=== PATIENT | female | born 1945 | race Caucasian/White ===

== ENCOUNTER 2022-05-30 07:57 | Outpatient (CLI) | payer MEDICARE, BC, SELFPAY | END 2022-05-30 07:58 | disposition home or self-care (01) | PROVIDERS: PCP Family Medicine; Visit Provider Family Medicine | DX: M54.16 Radiculopathy, lumbar region (principal); M51.26 Other intervertebral disc displacement, lumbar region | CPT/HCPCS: 64483; J1100; Q9966 ==

== ENCOUNTER 2022-07-07 13:00 | Outpatient (RCR) | payer MEDICARE, BC, SELFPAY ==
--- NOTE | 2022-06-11 17:14 | PT.OPE ---
PT [facility] PT [facility] Eval Start: 06/11/22 12:00 Freq: Status: Active Protocol: Document 06/11/22 17:12 CJT (Rec: 06/11/22 17:14 CJT [id number]) E-signed By Bertt Campos PT Physical Therapy Outpatient Evaluation Insurance Information Recert Due Date 08/06/22 Insurance Name Medicare B,[employer] Medical Diagnosis M54.16 - lumbar radiculopathy M54.26 - lumbar disc herniation M54.41 - chronic low back pain with Right sided sciatica Treating Diagnosis M54.41 - chronic low back pain with Right sided sciatica Referring MD Chavira, Palmer CASTRO Subjective Subjective Pt presents with chronic low back pain with radiating symptoms to the back of her R knee. Pain is also located across the whole low back at times. Pt notes that her back pain has still be getting worse. Pt notes that pain is going down her thigh to her knee and she feels a lot of numbness. Rates numbness as a 7/10 today. Pt has pain most of the day but notes that it is not constant. Pain gest bad with a lot of standing. Pain is also bad in the AM until she moves around a bit and takes her Tylenol. Can stand for about 15 minutes before she needs to sit. Can walk for about 20-30 minutes before needing to sit and rest. Pt does not report any changes in her sleep due to pain. Pain Comments 04/20 Date of Last Physician Visit 06/05/22 Current Work Status Retired Precautions Treatment Precautions/Contraindications Per Dr. Chavira: lumbar disc program, strength and stability; lower extremity and hip mobility; home exercise program; reconditioning Therapy Limitations/Systems Review Not Limited Objective Other/Pertinent Objective Lumbar ROM Extension - 0 degrees Flexion - can reach toes with minimal knee bend, no pain R/L Side Bend - 15/18 R/L Rotation - mild impairments bilaterally R Hip ROM Flexion - 120 IR/ER - 35/24 L Hip ROM Flexion - 120 IR/ER - 27/24 R knee ROM - WNL L knee ROM - WNL R Hip Strength Flexion - 4/5 MMT Adduction - 4+/5 MMT IR - 4+/5 MMT ER - 4+/5 MMT L Hip Strength Flexion - 3/5 MMT Adduction - 4/5 MMT IR - 4/5 MMT ER - 4+/5 MMT R knee Extension - 4+/5 MMT R Knee Flexion - 4+/5 MMT L knee Extension - 4+/5 MMT L knee Flexion - 4+/5 MMT R ankle DF - 4+/5 MMT L ankle DF - 4+/5 MMT Spurling's Compression: Slump: negative bilaterally SLR: pt notes pain in R lumbar region with R SLR to 90 degrees FADIR: negative B JOJO: positive on R - pain due to muscle tension in lateral R hip Pelvis: relatively level LA dx of B LE feels good on back Spasm: R thoracic and lumbar paraspinals, QL, glute med, glute min, piriformis Tenderness with palpation noted at muscles listed above as well as at R PSIS Assessment Assessment/Impression Pt is a 76 year old female who presents to [facility] PT clinic with complaints of chronic low back pain with R side sciatica . Pt has attended therapy at our clinic for back pain in the past and reports that she did have improvements in her symptoms from previous treatment. Pts symptoms are consistent with radiculopathy and facet joint arthropathy as she tolerates flexion well and does not tolerate extension of lumbar spine. Pt shows weakness throughout B LEs and further testing does need to be completed. Pt will benefit from therapy to reduce nerve compression of spine via long-axis distraction of R LE and/or traction, as well as stabilization of muscles surrounding hips, pelvis, and lumbar spine. Skilled PT services are medically necessary to address deficits and return patient to highest level of function. Recommend physical therapy sessions 1-2/ week for 8 weeks. Pt agrees with this plan. Printout of HEP was given for I completion and pt gives verbal understanding of each exercise . Plan of Care Rehabilitation Potential Good Physical Therapy Goals STG - To be completed in 2-3 weeks: 1. Pt will report reduction in back pain by factor of 2 so that they may perform all ADLs with tolerable level of pain. 2. Pt will demonstrate ability to perform pelvic tilt with good coordination as indication of appropriate firing of pelvic and lumbar stabilizing muscles to provide greater support for pelvis and lumbar spine. 4. Pt will demonstrate 5/5 MMT for all LE motions without reproduction of pain to provide greater support to pelvis and lumbar spine. 5. Pt will report ability to tolerate 30+ minutes of standing so that they may shop for groceries at store. LTG - To be completed in 8 weeks: 1. Pt to be I with HEP so that they may I manage progression of symptoms. 2. Pt will demonstrate 5/5 MMT for both upper and lower abdominals to provide greater support to pelvis and lumbar spine. 3. Pt will report ability to walk for 45+ minutes so that she may walk with her [place] [employer]. Treatment Plan/Direct Interventions Electrical Stimulation,Heat, Joint Mobilization,Manual Therapy,Neuromuscular Re-ed, Self-Care/Home Management, Therapeutic Exercises,Traction (Mechanical),Ultrasound Frequency/Duration 1-2/week for 8 weeks, 10 visits total Patient Will Be Discharged From Therapy Completion of LTG(s),Skills Plateau,Independent w/HEP, Independently Progressing Evaluation Billing Untimed Code Treatment Minutes 32 PT Eval No Charge No Complexity Low Certification Information Initial Certification Date 06/11/22 Ending Certification Date 08/06/22 Provider Signature Shows Agreement With POC & Medical Necessity Physician Comment/Change Comment or Changes Physician NPI Number #
== END 2022-08-25 11:24 | disposition home or self-care (01) ==
PROVIDERS: PCP Family Medicine; Visit Provider Family Medicine
DX: M54.16 Radiculopathy, lumbar region (principal); Z51.89 Encounter for other specified aftercare
CPT/HCPCS: 97110; 97140; 97161

== ENCOUNTER 2022-07-12 09:30 | Emergency (ER) | payer MEDICARE, BC, SELFPAY ==
[2022-07-12 09:57] VITALS: BP 147/59; PULSE 63; RESP 20; TEMP 36.3; O2SAT 100; BMI 29.3
--- NOTE | 2022-07-12 10:42 | ED_ITS ---
HPI - General Adult General Date Seen: 07/12/22 Chief complaint: Back Injury/Pain Stated complaint: Right hip/lower back pain Time Seen by Provider: 07/12/22 10:18 Source: patient History of Present Illness HPI narrative: Patient is a 76-year-old woman with a long history of low back pain with radiation to the right hip. She was in in April [facility], at that time had a Medrol Dosepak, had had an MRI which was reviewed. She did not improve and went on to have an injection in May. This was not helpful either. She has been doing PT. She generally does well with Tylenol, but says that this morning she had onset of severe spasms in her back. She has never had anything like this. She is not able to manage with Tylenol. She does not have any new radicular pain, denies any new weakness or numbness. Has not had fevers or any other new acute changes. This is the same as her usual pain but just much more severe. No trauma. Related Data Home Medications Medication Instructions Recorded Confirmed acetaminophen 650 mg 650 mg PO Q8H PRN 04/17/22 tablet,extended release atorvastatin 10 mg tablet 10 mg PO .Bedtime 04/17/22 cholestyramine-aspartame 4 gram See Rx Instructions PO DAILY 04/17/22 07/12/22 oral powder for susp in a packet clopidogrel 75 mg tablet 75 mg PO DAILY 04/17/22 diphenhydramine 25 1 tab PO .Bedtime PRN 04/17/22 mg-acetaminophen 500 mg tablet ergocalciferol (vitamin D2) 10 mcg 2,000 unit PO DAILY 04/17/22 (400 unit) tablet lisinopril 20 1 tab PO DAILY 04/17/22 mg-hydrochlorothiazide 25 mg tablet meclizine 25 mg tablet 25 mg PO PRN 04/17/22 multivitamin (Multiple Vitamins 1 tab PO QDAY 04/17/22 tablet) omeprazole 20 mg capsule,delayed 20 mg PO DAILY 04/17/22 release sotalol 80 mg tablet 40 mg PO BID 04/17/22 Previous Rx's Medication Instructions Recorded methylprednisolone 4 mg tablets in See Rx Instructions PO PER PKG DIR 04/21/22 a dose pack (Medrol (Gwyn)) #21 ea lidocaine HCl 4 % topical patch 1 patch topical DAILY PRN pain #30 07/12/22 ea Allergies Allergy/AdvReac Type Severity Reaction Status Date / Time codeine AdvReac Severe Nausea, Verified 04/21/22 11:19 vomiting, dizziness hydrocodone AdvReac Severe Nausea, Verified 04/21/22 11:19 vomiting, dizziness meperidine AdvReac Severe Nausea, Verified 04/21/22 11:19 vomiting, dizziness morphine AdvReac Severe Nausea, Verified 04/21/22 11:19 vomiting, dizzy NSAIDS (Non-Steroidal AdvReac Severe Nausea, Verified 04/21/22 11:19 Anti-Inflamma vomiting, dizziness ciprofloxacin AdvReac Mild Palpitation Verified 04/21/22 11:19 s oxycodone AdvReac Mild Nausea Verified 04/21/22 11:19 Review of Systems Status of ROS: Reports: 10 or more systems reviewed and unremarkable except as noted in History and below [facility] Medical History Hiatal hernia History of supraventricular tachycardia Hypokalemia Lumbar degenerative disc disease Nausea 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 Pain of right lower extremity Premature atrial contraction Recurrent urinary tract infection Squamous cell carcinoma in situ (SCCIS) Urinary tract infection Surgical History History of bilateral cataract extraction (~2007) History of carpal tunnel release of both wrists History of cholecystectomy (~2002) History of resection of small bowel (~1991) History of total hysterectomy with bilateral salpingo-oophorectomy (BSO) (~1991) History of total knee replacement (~2009) Osteoarthritis of carpometacarpal (CMC) joint of right thumb (09/21/19) Family History Father FH: colonic polyps Leukemia Brother FH: colonic polyps Mother Coronary artery disease Hypercholesteremia High blood pressure Sister Breast cancer Social History Smoking Status: Never smoker Exam Narrative: Exam Narrative: Vital signs as noted above. In general, an alert, well-appearing patient. Head: Normocephalic, atraumatic. Eyes: Pupils are equal reactive. Extraocular movements are full. Conjunctivae are normal. ENT: Mucous membranes are moist. Throat is normal. Neck: Supple without lymphadenopathy. Heart: Regular rate and rhythm. No murmur or rub. Lungs: Clear bilaterally. No increased work of breathing, crackles or wheezes. Back: Nontender to palpation. Extremities: Well perfused. No edema. No calf tenderness. Pulses intact. Neurologic: Patient is alert and oriented to person and place. Speech is fluent. Face is symmetric. Bilateral lower extremities show 5/5 strength. Normal sensation bilaterally. Affect: Normal. Skin: Warm and dry. Well perfused. Const: Vital Signs, click to edit/add: Vital Signs - 24 hr 07/12/22 09:57 Temperature 97.4 F L Pulse Rate [Pulse Oximeter] 63 Respiratory Rate 20 Blood Pressure [Ri ght Upper Arm] 147/59 H Pulse Oximetry 100 Oxygen Delivery Me thod Room Air Documenting provider has reviewed patient's vital signs: yes Course Course Hospital Course: We will place an IV here. Medications are very limited secondary to allergies to all narcotics. She does not tolerate them from a GI standpoint. She says that she has been given tramadol IV before but I think she must mean Toradol. She has a listed allergy to NSAIDs, but she tells me this is because she has gastritis. I think she probably is okay with a dose of Toradol and given are limited options I am going to try that along with some Ativan. Will also try giving her some IV Solu-Medrol. She did not do well with the Medrol Dosepak but perhaps a little higher dose prednisone taper would be helpful for her. Patient feels somewhat better with Toradol and Ativan. Her pain is not gone but she feels like the spasms are occurring less frequently. We talked about trying something in the opioid class in using an antiemetic, but she really does not want to do that. She is comfortable going home and trying to continue with her Tylenol, and we are going to try the prednisone taper along with Flexeril and lidocaine patches, ice, continue with PT and seeing how she does. She has an appointment with her back doctor later in the month. If she is not able to manage with these measures she will come back. Likewise return if she has new symptoms such as muscle weakness, fevers or other unusual symptoms. Vital Signs Vital signs: Initial Vital Signs Temperature 97.4 F L 07/12/22 09:57 Temperature Source Temporal Artery Scan 07/12/22 09:57 Pulse Rate 63 07/12/22 09:57 Respiratory Rate 20 07/12/22 09:57 Blood Pressure 147/59 H 07/12/22 09:57 Blood Pressure Mean 88 07/12/22 09:57 Pulse Oximetry 100 07/12/22 09:57 Oxygen Delivery Method 07/12/22 09:57 Vital Signs Temperature 97.4 F L 07/12/22 09:57 Pulse Rate 63 07/12/22 09:57 Respiratory Rate 20 07/12/22 09:57 Blood Pressure 147/59 H 07/12/22 09:57 Pulse Oximetry 100 07/12/22 09:57 Oxygen Delivery Method 07/12/22 09:57 Temperature 97.4 F L 07/12/22 09:57 Pulse Rate 63 07/12/22 09:57 Respiratory Rate 20 07/12/22 09:57 Blood Pressure 147/59 H 07/12/22 09:57 Pulse Oximetry 100 07/12/22 09:57 Oxygen Delivery Method 07/12/22 09:57 Discharge Plan Discharge Clinical Impression: Chronic low back pain with right-sided sciatica Patient Disposition: Home, Self-Care Condition: Improved Instructions: Back Pain (ED) Additional Instructions: Continue your Tylenol. Add in Flexeril and prednisone, lidocaine patches, ice. Follow-up with your back doctor as planned. Return for severe uncontrolled pain or other new symptoms. Prescriptions: New lidocaine HCl 4 % adhesive patch,medicated 1 patch topical DAILY PRN (Reason: pain) Qty: 30 0RF No Action diphenhydramine-acetaminophen 25-500 mg tablet 1 tab PO .Bedtime PRN clopidogrel 75 mg tablet 75 mg PO DAILY ergocalciferol (vitamin D2) 10 mcg (400 unit) tablet 2,000 unit PO DAILY sotalol 80 mg tablet 40 mg PO BID multivitamin [Multiple Vitamins] Tablet 1 tab PO QDAY acetaminophen 650 mg tablet extended release 650 mg PO Q8H PRN meclizine 25 mg tablet 25 mg PO PRN cholestyramine-aspartame 4 gram powder in packet See Rx Instructions PO DAILY Rx Instructions: 4 Grams PO daily; lisinopril-hydrochlorothiazide 20-25 mg tablet 1 tab PO DAILY omeprazole 20 mg capsule,delayed release(DR/EC) 20 mg PO DAILY atorvastatin 10 mg tablet 10 mg PO .Bedtime methylprednisolone [Medrol (Gwyn)] 4 mg tablets,dose pack See Rx Instructions PO PER PKG DIR Qty: 21 0RF Rx Instructions: PO PER PKG DIR Follow Up/Referrals: Marla Christianson MD [Primary Care Provider] - Stand Alone Forms: DWNLDth Info Instructions
[2022-07-12] MEDS: KETOROLAC 15 MG/ML inj IVP (10:50)
[2022-07-12] MEDS: LORazepam 2 MG/ML inj 1 MG IVP (10:53)
[2022-07-12 11:00] VITALS: BP 141/69; PULSE 55; RESP 14; O2SAT 99
[2022-07-12] MEDS: METHYLPREDNISOLONE SOD SUCC 62.5 MG/ML (125) 125 MG IVP (11:47)
[2022-07-12 13:00] VITALS: PULSE 59; RESP 16; O2SAT 99
== END 2022-07-12 13:13 | disposition home or self-care (01) ==
PROVIDERS: Emergency Provider Emergency Medicine; PCP Family Medicine
DX: M54.41 Lumbago with sciatica, right side (principal)
CPT/HCPCS: 96374; 96375; 99283; J1885; J2060; J2930

== ENCOUNTER 2022-07-14 09:45 | Emergency (ER) | payer MEDICARE, BC, SELFPAY ==
[2022-07-14 09:52] VITALS: BP 154/79; PULSE 74; RESP 20; TEMP 36.4; O2SAT 96; BMI 29.3
--- NOTE | 2022-07-14 10:22 | ED_ITS ---
HPI - General Adult General Time Seen by Provider: 10: Date Seen: 07/14/22 Chief complaint: Back Injury/Pain Stated complaint: severe back pain Time Seen by Provider: 07/14/22 10:22 Source: patient, RN notes reviewed and old records reviewed Mode of arrival: ambulatory Limitations: no limitations History of Present Illness HPI narrative: This pleasant 76-year-old female is coming into the ER with back pain that she can not get rid of. It starts right low back and wraps around the lower abdomen/hip area. She does have a significant history of degenerative disc disease of her spine and has had radiculopathy before. She has been going to physical therapy for about 3 weeks and notes that the left leg burning pins and needle sensation is feeling better. Historically when she has had pinched nerves in her back the pain will radiate down the leg. This is a bit different. It wrapping around the hip area. She notes no acute numbness or tingling, no bowel or bladder changes, normal bowel movements and normal urine control. No fevers, no night sweats, no trauma. She is complaining of right lower abdominal pain with this but states that wraps from the back. She was seen by Dr. Gold in the ED on July 12 and that note is reviewed. She reported the had a visit at [facility] in April and had a Medrol Dosepak. There was reportedly an MRI at that time. NSAIDs have given her gastritis but she did get Toradol with some relief here last time. She has been taking Flexeril, prednisone and I seen. She has been continue with physical therapy. She did try some Tylenol this morning and did help but it is already wearing off and it is 2-1/2 hours. Related Data Home Medications Medication Instructions Recorded Confirmed acetaminophen 650 mg 650 mg PO Q8H PRN 04/17/22 tablet,extended release atorvastatin 10 mg tablet 10 mg PO .Bedtime 04/17/22 cholestyramine-aspartame 4 gram See Rx Instructions PO DAILY 04/17/22 07/12/22 oral powder for susp in a packet clopidogrel 75 mg tablet 75 mg PO DAILY 04/17/22 diphenhydramine 25 1 tab PO .Bedtime PRN 04/17/22 mg-acetaminophen 500 mg tablet ergocalciferol (vitamin D2) 10 mcg 2,000 unit PO DAILY 04/17/22 (400 unit) tablet lisinopril 20 1 tab PO DAILY 04/17/22 mg-hydrochlorothiazide 25 mg tablet meclizine 25 mg tablet 25 mg PO PRN 04/17/22 multivitamin (Multiple Vitamins 1 tab PO QDAY 04/17/22 tablet) omeprazole 20 mg capsule,delayed 20 mg PO DAILY 04/17/22 release sotalol 80 mg tablet 40 mg PO BID 04/17/22 Previous Rx's Medication Instructions Recorded methylprednisolone 4 mg tablets in See Rx Instructions PO PER PKG DIR 04/21/22 a dose pack (Medrol (Gwyn)) #21 ea lidocaine HCl 4 % topical patch 1 patch topical DAILY PRN pain #30 07/12/22 ea Allergies Allergy/AdvReac Type Severity Reaction Status Date / Time codeine AdvReac Severe Nausea, Verified 07/14/22 09:51 vomiting, dizziness hydrocodone AdvReac Severe Nausea, Verified 07/14/22 09:51 vomiting, dizziness meperidine AdvReac Severe Nausea, Verified 07/14/22 09:51 vomiting, dizziness morphine AdvReac Severe Nausea, Verified 07/14/22 09:51 vomiting, dizzy NSAIDS (Non-Steroidal AdvReac Severe Nausea, Verified 07/14/22 09:51 Anti-Inflamma vomiting, dizziness ciprofloxacin AdvReac Mild Palpitation Verified 07/14/22 09:51 s oxycodone AdvReac Mild Nausea Verified 07/14/22 09:51 Review of Systems Status of ROS: Reports: 10 or more systems reviewed and unremarkable except as noted in History and below [facility] Medical History Hiatal hernia History of supraventricular tachycardia Hypokalemia Lumbar degenerative disc disease Nausea 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 Pain of right lower extremity Premature atrial contraction Recurrent urinary tract infection Squamous cell carcinoma in situ (SCCIS) Urinary tract infection Surgical History History of bilateral cataract extraction (~2007) History of carpal tunnel release of both wrists History of cholecystectomy (~2002) History of resection of small bowel (~1991) History of total hysterectomy with bilateral salpingo-oophorectomy (BSO) (~1991) History of total knee replacement (~2009) Osteoarthritis of carpometacarpal (CMC) joint of right thumb (09/21/19) Family History Father FH: colonic polyps Leukemia Brother FH: colonic polyps Mother Coronary artery disease Hypercholesteremia High blood pressure Sister Breast cancer Social History Smoking Status: Never smoker Do you use any of these nicotine containing products: None How often do you have a drink containing alcohol: never AUDIT-C Alcohol total score: 0 Non-prescribed substance use: denies use service: No Exam Const: Vital Signs, click to edit/add: Vital Signs - 24 hr 07/14/22 09:52 07/14/22 11:52 Temperature 97.6 F Pulse Rate [Pulse Oximeter] 74 61 Respiratory Rate 20 12 Blood Pressure [Le ft Forearm] 154/79 H 156/79 H Pulse Oximetry 96 98 Oxygen Delivery Me thod Room Air Room Air Documenting provider has reviewed patient's vital signs: yes Common normals: average body habitus, oriented x3, no limitations, healthy appearing, alert and well nourished General appearance: other (Appears mildly uncomfortable but is certainly pleasant.) HENMT: Common normals: normocephalic, head/scalp atraumatic, hearing grossly normal bilaterally and external ears normal Head and scalp: normocephalic and atraumatic External ear: external ears normal Eye: Common normals: PERRL, EOMs intact bilaterally, conjunctivae normal and no scleral icterus Conjunctiva: conjunctiva(e) normal Pupil: PERRL Neck & C-Spine: Common normals: full ROM, no lymphadenopathy, supple, no meningeal signs, no JVD and thyroid normal Thyroid: thyroid normal Resp: Common normals: normal respiratory effort, no retractions, no use of accessory muscles and clear to auscultation bilaterally Auscultation: clear to auscultation bilaterally Cardio: Common normals: no JVD, regular rate, regular rhythm, S1 normal heart sound, S2 normal heart sound, no gallops, no clicks, no murmurs and no rub Rate: regular rate Rhythm: regular rhythm Heart sounds: S1 normal and S2 normal GI: Common normals: Normal to inspection, nondistended, normoactive bowel sounds present, soft to palpation, no hepatosplenomegaly and no bruits Palpation: soft and no hepatosplenomegaly Other: Does have some tenderness when I palpate the right lower quadrant of her abdomen. It is certainly not severe and there is no rebound or guarding but I do have a sense that there is increased pain when I palpate the right lower quadrant. There is certainly no masses. In conjunction with her increased pain along the right SI joint, I do wonder if this is something different from a lumbar radiculopathy at this point. : Common normals: no CVA tenderness Bladder/kidney exam: no CVA tenderness Back & Pelvis: Common normals: no CVA tenderness, thoracic and lumbar spine normal to inspection, no thoracic nor lumbar tenderness and straight leg raise negative bilaterally (She has absolutely no increased pain with lower extremity manipulation) Other: She is point tender over her right upper SI joint. Note pain translate over the right iliac crest area into the right lower quadrant of her abdomen. Extremity: Common normals: normal to inspection, full ROM, normal capillary refill, no joint enlargement, no clubbing, cyanosis or edema (She has thicker lower extremities but no pitting edema noted), no calf tenderness and no pedal edema Neuro: Common normals: oriented x3, CN's II-XII intact bilaterally, moves all extremities, no focal motor deficits and no sensory deficits noted Sensorium/orientation: alert Meningeal signs: no meningeal signs Speech: speech normal Course Course Hospital Course: Will place an IV, give her 15 mg IV Toradol. I am going to image her SI joints with plain films. Will see if 15 mg IV Toradol does help for a bit while she is here. I reviewed with her I would like to just get some baseline labs including urinalysis to ensure that were not missing something different here. This certainly could be ear back/be musculoskeletal, but I just want to ensure that we are not missing some seen in the intra-abdominal system. Reevaluation(s) Reevaluation #1: Reviewed lab results with patient. Her white count is a little elevated but would be consistent with steroid use. On re-examination she really is not tender in the abdominal area. There is no midline tenderness over her back, which is pretty significant point tenderness over the right upper SI joint. Her inflammatory markers are all normal on her labs. I do think that this is musculoskeletal not intra-abdominal. I do wonder if this is maybe stemming from her SI joint now however. Wonder if it could have become inflamed or irritated with some of her physical therapy. It is possible for this to be injected but is not something done emergently out of the ED. she does not see her spine surgeon until the end of the month. I have advised her to see if she can get back in with Dr. Carcamo in the interim. As far as pain management, the next thing I have for her would be narcotics and she does not want to do that. Her pain does not seem significant to the point of requiring hospitalization or transfer for any emergent procedure. I do not think that she needs further neuro imaging is there is nothing suggestive on her exam that this is a progressive neuropathic process from impingement. Time: 12:33 Vital Signs Vital signs: Initial Vital Signs Temperature 97.6 F 07/14/22 09:52 Temperature Source Temporal Artery Scan 07/14/22 09:52 Pulse Rate 74 07/14/22 09:52 Pulse Rhythm 07/14/22 09:52 Respiratory Rate 20 07/14/22 09:52 Blood Pressure 154/79 H 07/14/22 09:52 Blood Pressure Mean 104 07/14/22 09:52 Pulse Oximetry 96 07/14/22 09:52 Oxygen Delivery Method 07/14/22 09:52 Vital Signs Temperature 97.6 F 07/14/22 09:52 Pulse Rate 74 07/14/22 09:52 Respiratory Rate 20 07/14/22 09:52 Blood Pressure 154/79 H 07/14/22 09:52 Pulse Oximetry 96 07/14/22 09:52 Oxygen Delivery Method 07/14/22 09:52 Temperature 97.6 F 07/14/22 09:52 Pulse Rate 61 07/14/22 11:52 Respiratory Rate 12 07/14/22 11:52 Blood Pressure 156/79 H 07/14/22 11:52 Pulse Oximetry 98 07/14/22 11:52 Oxygen Delivery Method 07/14/22 11:52 Medical Decision Making Lab Data Lab results reviewed: Yes I reviewed the patient's lab results Labs: Lab Results 07/14/22 07/14/22 07/14/22 Range/Units 10:50 11:05 11:05 WBC 15.53 H (4.50-11.00) K/uL RBC 4.12 (4.00-5.20) m/uL Hgb 12.1 (12.0-16.0) gm/dL Hct 37.9 (33.0-51.0) % MCV 92 (80-100) fL MCH 29 (26-34) pg MCHC 32 (32-36) gm/dL RDW Coeff of Cece 14.3 (11.5-15.5) % Plt Count 201 (140-440) K/uL Neut % (Auto) 85.8 H (42.0-72.0) % Lymph % (Auto) 9.9 L (20-44) % Tucker % (Auto) 3.7 (0.0-11.0) % Eos % (Auto) 0.1 (0.0-7.0) % Baso % (Auto) 0.0 (0.0-3.0) % Neut # (Auto) 13.30 H (1.7-7.0) K/uL Lymph # (Auto) 1.50 (0.90-2.90) K/uL Tucker # (Auto) 0.60 (0.00-0.90) K/UL Eos # (Auto) 0.00 (0.00-0.50) K/uL Baso # (Auto) 0.00 (0.00-0.30) K/uL Abs Immat Gran (auto) 0.08 (0.00-0.30) K/uL Sodium 142 (135-149) mmol/L Potassium 3.6 (3.6-5.1) mmol/L Chloride 108 (96-114) mmol/L Carbon Dioxide 24 (20-32) mmol/L BUN 32 H (7-30) mg/dL Creatinine 0.6 (0.5-1.5) mg/dL Estimated Creat Clear 33.30 Estimated GFR 92 ml/min Glucose 114 (60-115) mg/dL Calcium 9.0 (8.4-10.6) mg/dL Total Bilirubin 0.3 (0.1-1.5) mg/dL AST 25 (12-35) U/L ALT 17 (4-35) U/L Alkaline Phosphatase 46 (40-150) U/L C-Reactive Protein < 0.5 L (0.5-1.0) mg/dL Total Protein 7.4 (6.0-8.3) g/dL Albumin 4.2 (3.3-5.0) g/dL Urine Color Yellow (Yellow) Urine Appearance Clear (Clear) Urine pH 6.0 (5.0-8.5) Ur Specific Cunningham 1.025 (1.000-1.030) Urine Protein Negative (Negative) Urine Glucose (UA) Negative (Negative) Urine Ketones Negative (Negative) Urine Blood Negative (Negative) Urine Nitrite Negative (Negative) Urine Bilirubin Negative (Negative) Urine Urobilinogen 0.2 (0.2-1.0) Ur Leukocyte Esterase Trace A (Negative) Urine RBC 0-2 (0-2) Urine WBC 10-25 A (0-5) Ur Squamous Epith Cells Moderate A (None-Few) Urine Bacteria Few A (None) Urine Mucus Few A (None) Imaging Data X-ray SI joints: Attestation: I have reviewed the pertinent imaging results. Radiologist's impression: Patient: YOLY WILLIAM Facility:?[facility] Patient ID:?[id number] Site Patient ID:?[id number]. Site :?[id number] Study:?XRay Pelvis Bilateral 3 VIEWS-07/14/2022 11:49:50 AM Ordering Physician:Harinder Fabian Final Report: Indication: Right SI pain Technique: Three-view SI joint Comparison: No comparison Findings: Normal alignment. No acute fractures are seen. Right SI joint suboptimally visualized however unremarkable. No sclerosis or erosive changes seen. Degenerative changes lower lumbar spine Dictated by Tanya Ingram MD @ 07/14/2022 12:16:30 PM (Electronic Signature) Critical Care Time Critical Care Time Critical Care Time: No Discharge Plan Discharge Clinical Impression: Pain of right sacroiliac joint, Degenerative joint disease (DJD) of lumbar spine Condition: Stable Instructions: Lumbar Disc Herniation (ED) Additional Instructions: For the next 7-10 days, can use Tylenol 1000 mg 3 times a day, do recommend doing this scheduled for this duration. Complete the prednisone. Can use the Flexeril as prescribed. Recommend follow up with Dr. Carcamo at [facility]. I would recommend trying some ice to this right SI joint area. If you feel ice is making it worse, can try to move to heat instead. Activity Level: Activity as Tolerated Prescriptions: No Action diphenhydramine-acetaminophen 25-500 mg tablet 1 tab PO .Bedtime PRN clopidogrel 75 mg tablet 75 mg PO DAILY ergocalciferol (vitamin D2) 10 mcg (400 unit) tablet 2,000 unit PO DAILY sotalol 80 mg tablet 40 mg PO BID multivitamin [Multiple Vitamins] Tablet 1 tab PO QDAY acetaminophen 650 mg tablet extended release 650 mg PO Q8H PRN meclizine 25 mg tablet 25 mg PO PRN cholestyramine-aspartame 4 gram powder in packet See Rx Instructions PO DAILY Rx Instructions: 4 Grams PO daily; lisinopril-hydrochlorothiazide 20-25 mg tablet 1 tab PO DAILY omeprazole 20 mg capsule,delayed release(DR/EC) 20 mg PO DAILY atorvastatin 10 mg tablet 10 mg PO .Bedtime methylprednisolone [Medrol (Gwyn)] 4 mg tablets,dose pack See Rx Instructions PO PER PKG DIR Qty: 21 0RF Rx Instructions: PO PER PKG DIR lidocaine HCl 4 % adhesive patch,medicated 1 patch topical DAILY PRN (Reason: pain) Qty: 30 0RF Follow Up/Referrals: Marla Christianson MD [Primary Care Provider] - Stand Alone Forms: [employer] Info Instructions
--- NOTE | 2022-07-14 10:33 | CRLHL7_ITS ---
For Patients: As a result of the Cures Act, medical imaging exams and procedure reports are released immediately into your electronic medical record. You may view this report before your referring provider. If you have questions, please contact your health care provider. Indication: Right SI pain Technique: Three-view SI joint Comparison: No comparison Findings: Normal alignment. No acute fractures are seen. Right SI joint suboptimally visualized however unremarkable. No sclerosis or erosive changes seen. Degenerative changes lower lumbar spine Dictated by Tanya Ingram MD @ 07/14/2022 12:16:30 PM (Electronically Signed)
[2022-07-14 11:03] LABS: Appearance Urine Clear (Clear); Bilirubin Urine Negative (Negative); Blood Urine Negative (Negative); Color Urine Yellow (Yellow); Glucose Urine Negative (Negative); Ketones Urine Negative (Negative); Leukocyte Esterase Urine Trace (Negative); Nitrite Urine Negative (Negative); Protein Urine Negative (Negative); Specific Gravity Urine 1.025 (1.000-1.030); Urobilinogen Urine 0.2 (0.2-1.0)
[2022-07-14 11:12] LABS: Eosinophils Percent Auto 0.1 % (0.0-7.0); Hematocrit 37.9 % (33.0-51.0); Hemoglobin* 12.1 gm/dL (12.0-16.0); Immature Granulocytes Abs Auto 0.08 K/uL (0.00-0.30); Lymphocytes Percent Auto 9.9 % (20-44); Mean Corpuscular HGB Conc 32 gm/dL (32-36); Mean Corpuscular Hemoglobin 29 pg (26-34); Mean Corpuscular Volume 92 fL (80-100); Monocytes Percent Auto 3.7 % (0.0-11.0); Neutrophils Percent Auto 85.8 % (42.0-72.0); Platelet Count* 201 K/uL (140-440); RDW Coefficient of Variation % 14.3 % (11.5-15.5); Red Blood Count 4.12 m/uL (4.00-5.20); White Blood Count* 15.53 K/uL (4.50-11.00)
[2022-07-14] MEDS: KETOROLAC 15 MG/ML inj IVP (11:22)
[2022-07-14 11:24] LABS: Slide Review Reflex No
[2022-07-14 11:28] LABS: RBC Urine 0-2 (0-2)
[2022-07-14 11:29] LABS: Bacteria Urine Few; Mucus Urine Few; Squamous Epithelial Cell Urine Moderate (None-Few)
[2022-07-14 11:35] LABS: Chloride* 108 mmol/L (96-114)
[2022-07-14 11:36] LABS: Albumin* 4.2 g/dL (3.3-5.0); Potassium* 3.6 mmol/L (3.6-5.1); Sodium* 142 mmol/L (135-149)
[2022-07-14 11:38] LABS: Creatinine* 0.6 mg/dL (0.5-1.5); Estimated Glomerular Filt Rate 92 ml/min
[2022-07-14 11:39] LABS: Alanine Aminotransferase* 17 U/L (4-35); Alkaline Phosphatase* 46 U/L (40-150); Aspartate Amino Transferase* 25 U/L (12-35); Bilirubin Total* 0.3 mg/dL (0.1-1.5); Blood Urea Nitrogen* 32 mg/dL (7-30); Carbon Dioxide* 24 mmol/L (20-32); Glucose* 114 mg/dL (60-115); Total Protein* 7.4 g/dL (6.0-8.3)
[2022-07-14 11:46] LABS: C Reactive Protein* < 0.5 mg/dL (0.5-1.0)
[2022-07-14 11:52] VITALS: BP 156/79; PULSE 61; RESP 12; O2SAT 98
== END 2022-07-14 12:53 | disposition home or self-care (01) ==
PROVIDERS: Emergency Provider Family Medicine; PCP Family Medicine
DX: M53.3 Sacrococcygeal disorders, not elsewhere classified (principal); M51.36 Other intervertebral disc degeneration, lumbar region
CPT/HCPCS: 36415; 72202; 80053; 81001; 85025; 86140; 87086; 96374; 99284; J1885

== ENCOUNTER 2022-11-01 07:35 | Emergency (ER) | payer MEDICARE, BC, SELFPAY ==
[2022-11-01] VITALS (11 sets, daily range): BP systolic 93–149; BP diastolic 55–105; PULSE 56–67; RESP 18; TEMP 36.7; O2SAT 94–100; BMI 29.7
[2022-11-01 09:05] LABS: Chloride* 110 mmol/L (96-114); Sodium* 141 mmol/L (135-149)
[2022-11-01 09:06] LABS: Potassium* 3.6 mmol/L (3.6-5.1)
[2022-11-01 09:08] LABS: Creatinine* 0.6 mg/dL (0.5-1.5); Est. Creatinine Clearance* 32.77; Estimated Glomerular Filt Rate 91 ml/min
[2022-11-01 09:09] LABS: Blood Urea Nitrogen* 18 mg/dL (7-30); Calcium* 9.2 mg/dL (8.4-10.6); Carbon Dioxide* 25 mmol/L (20-32); Glucose* 91 mg/dL (60-115)
--- NOTE | 2022-11-01 09:21 | ED_ITS ---
HPI - General Adult General Chief complaint: Arrhythmia/Palpitations Stated complaint: Irregular heart beat Time Seen by Provider: 11/01/22 07:55 Source: patient Mode of arrival: ambulatory Limitations: no limitations History of Present Illness HPI narrative: Patient is a rajeev 77-year-old female coming in today concerned about palpitations. She states that for the last couple of night when she goes to bed and gets quiet before she falls asleep she feels her heart pumping little bit harder and a little bit faster than normal. Patient does have a history of SVT and is concerned that she is in a irregular rhythm. She does not feel short of breath or lightheaded. She has no chest pain. She denies any recent illness. She denies any nausea or vomiting. She does not feel weak or has increased fatigue. She denies a headache. She states that when she gets up and starts moving in the morning the sensation does disappear and she does not notice it. She has been doing her activities of daily living without any compromise. She does have an appointment with her field recorder already scheduled in about a week and a half. Related Data Home Medications Medication Instructions Recorded Confirmed acetaminophen 650 mg 650 mg PO Q8H PRN 04/17/22 tablet,extended release atorvastatin 10 mg tablet 10 mg PO .Bedtime 04/17/22 cholestyramine-aspartame 4 gram See Rx Instructions PO DAILY 04/17/22 07/12/22 oral powder for susp in a packet clopidogrel 75 mg tablet 75 mg PO DAILY 04/17/22 diphenhydramine 25 1 tab PO .Bedtime PRN 04/17/22 mg-acetaminophen 500 mg tablet ergocalciferol (vitamin D2) 10 mcg 2,000 unit PO DAILY 04/17/22 (400 unit) tablet lisinopril 20 1 tab PO DAILY 04/17/22 mg-hydrochlorothiazide 25 mg tablet meclizine 25 mg tablet 25 mg PO PRN 04/17/22 multivitamin (Multiple Vitamins 1 tab PO QDAY 04/17/22 tablet) omeprazole 20 mg capsule,delayed 20 mg PO DAILY 04/17/22 release sotalol 80 mg tablet 40 mg PO BID 04/17/22 Previous Rx's Medication Instructions Recorded methylprednisolone 4 mg tablets in See Rx Instructions PO PER PKG DIR 04/21/22 a dose pack (Medrol (Gwyn)) #21 ea lidocaine HCl 4 % topical patch 1 patch topical DAILY PRN pain #30 07/12/22 ea Allergies Allergy/AdvReac Type Severity Reaction Status Date / Time codeine AdvReac Severe Nausea, Verified 07/14/22 09:51 vomiting, dizziness hydrocodone AdvReac Severe Nausea, Verified 07/14/22 09:51 vomiting, dizziness meperidine AdvReac Severe Nausea, Verified 07/14/22 09:51 vomiting, dizziness morphine AdvReac Severe Nausea, Verified 07/14/22 09:51 vomiting, dizzy NSAIDS (Non-Steroidal AdvReac Severe Nausea, Verified 07/14/22 09:51 Anti-Inflamma vomiting, dizziness ciprofloxacin AdvReac Mild Palpitation Verified 07/14/22 09:51 s oxycodone AdvReac Mild Nausea Verified 07/14/22 09:51 Review of Systems Status of ROS: Reports: 10 or more systems reviewed and unremarkable except as noted in History and below [facility] Medical History Hiatal hernia History of supraventricular tachycardia Hypokalemia Lumbar degenerative disc disease Nausea 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 Pain of right lower extremity Premature atrial contraction Recurrent urinary tract infection Squamous cell carcinoma in situ (SCCIS) Urinary tract infection Surgical History History of bilateral cataract extraction (~2007) History of carpal tunnel release of both wrists History of cholecystectomy (~2002) History of resection of small bowel (~1991) History of total hysterectomy with bilateral salpingo-oophorectomy (BSO) (~1991) History of total knee replacement (~2009) Osteoarthritis of carpometacarpal (CMC) joint of right thumb (09/21/19) Family History Father FH: colonic polyps Leukemia Brother FH: colonic polyps Mother Coronary artery disease Hypercholesteremia High blood pressure Sister Breast cancer Social History Smoking Status: Never smoker Do you use any of these nicotine containing products: None How often do you have a drink containing alcohol: never AUDIT-C Alcohol total score: 0 Non-prescribed substance use: denies use service: No Exam Narrative: Exam Narrative: Well-nourished well-developed patient in no acute distress. Alert and oriented. Answers questions appropriately. Mood and affect are appropriate. Thoughts are goal oriented and rational. No tangential or magical thinking noted. Patient speaks in full sentences without needing to catch her breath. HEENT: Normocephalic atraumatic. Pupils are equally round reactive to light. Extraocular muscles are intact. Conjunctivae are moist without any icterus noted. Moist mucous membranes. Cardiovascular: Heart is regular rate and rhythm S1 and S2 are present without any murmurs. Lungs: Clear to auscultation bilaterally no wheezes rhonchi or rales are appreciated. Patient takes deep breaths without any discomfort. Extremities: Bilateral lower extremities are without pitting edema. Normal DP and PT pulses. Skin: Well perfused without any obvious rashes. Const: Vital Signs, click to edit/add: Vital Signs - 24 hr 11/01/22 07:46 11/01/22 08:07 11/01/22 08:05 Temperature 98.1 F Pulse Rate 60 Pulse Rate [Right Pulse Oximeter] 60 Respiratory Rate 18 Blood Pressure 144/79 H Blood Pressure [Ri ght Upper Arm] 134/105 H Pulse Oximetry 100 98 99 Oxygen Delivery Me thod Room Air 11/01/22 08:06 11/01/22 08:15 11/01/22 08:30 Temperature Pulse Rate 59 L 65 Pulse Rate [Right Pulse Oximeter] Respiratory Rate Blood Pressure Blood Pressure [Ri ght Upper Arm] Pulse Oximetry 99 100 99 Oxygen Delivery Me thod 11/01/22 08:33 11/01/22 08:45 Temperature Pulse Rate 63 58 L Pulse Rate [Right Pulse Oximeter] Respiratory Rate Blood Pressure 93/55 L Blood Pressure [Ri ght Upper Arm] Pulse Oximetry 100 98 Oxygen Delivery Me thod Course Course Hospital Course: EKG showed normal sinus rhythm, pulse is 60. Patient was placed on the heart monitor. Every now and then she has episodes where she will have some PVCs and premature atrial complexes as well. But they are not sustained. We did do some blood work to make sure she did not have any cause of a arrhythmias: Blood work showed an unremarkable BMP and troponin. Her hemoglobin was slightly lower than the last time she was here 10.9. TSH pending. Vital Signs Vital signs: Initial Vital Signs Temperature 98.1 F 11/01/22 07:46 Temperature Source Temporal Artery Scan 11/01/22 07:46 Pulse Rate 60 11/01/22 07:46 Pulse Rhythm 11/01/22 07:46 Respiratory Rate 18 11/01/22 07:46 Blood Pressure 134/105 H 11/01/22 07:46 Blood Pressure Mean 114 11/01/22 07:46 Blood Pressure Position Sitting 11/01/22 07:46 Pulse Oximetry 100 11/01/22 07:46 Oxygen Delivery Method 11/01/22 07:46 Vital Signs Temperature 98.1 F 11/01/22 07:46 Pulse Rate 60 11/01/22 07:46 Respiratory Rate 18 11/01/22 07:46 Blood Pressure 134/105 H 11/01/22 07:46 Pulse Oximetry 100 11/01/22 07:46 Oxygen Delivery Method 11/01/22 07:46 Temperature 98.1 F 11/01/22 07:46 Pulse Rate 58 L 11/01/22 08:45 Respiratory Rate 18 11/01/22 07:46 Blood Pressure 93/55 L 11/01/22 08:33 Pulse Oximetry 98 11/01/22 08:45 Oxygen Delivery Method 11/01/22 07:46 Medical Decision Making MDM Narrative Medical decision making narrative: 77-year-old female with palpitations. Could certainly be that she is paying attention more in the evening to PACs and PVCs. We discussed doing a Holter monitor and patient felt that that was a good idea so she would have something to discuss with her field recorder at her follow-up appointment. We discussed that if she becomes symptomatic with feelings of palpitations that I would recommend she return to the ER. Patient was agreeable with this plan had no other questions. Medical Records Medical records reviewed: Yes I reviewed the patient's medical records Lab Data Lab results reviewed: Yes I reviewed the patient's lab results Labs: Lab Results 11/01/22 11/01/22 Range/Units 08:37 08:37 WBC 5.49 (4.50-11.00) K/uL RBC 3.77 L (4.00-5.20) m/uL Hgb 10.9 L (12.0-16.0) gm/dL Hct 34.9 (33.0-51.0) % MCV 93 (80-100) fL MCH 29 (26-34) pg MCHC 31 L (32-36) gm/dL RDW Coeff of Cece 12.4 (11.5-15.5) % Plt Count 187 (140-440) K/uL Neut % (Auto) 56.2 (42.0-72.0) % Lymph % (Auto) 32.8 (20-44) % [place] % (Auto) 8.6 (0.0-11.0) % Eos % (Auto) 2.2 (0.0-7.0) % Baso % (Auto) 0.0 (0.0-3.0) % Neut # (Auto) 3.09 (1.7-7.0) K/uL Lymph # (Auto) 1.80 (0.90-2.90) K/uL [place] # (Auto) 0.50 (0.00-0.90) K/UL Eos # (Auto) 0.12 (0.00-0.50) K/uL Baso # (Auto) 0.00 (0.00-0.30) K/uL Sodium 141 (135-149) mmol/L Potassium 3.6 (3.6-5.1) mmol/L Chloride 110 (96-114) mmol/L Carbon Dioxide 25 (20-32) mmol/L BUN 18 (7-30) mg/dL Creatinine 0.6 (0.5-1.5) mg/dL Estimated Creat Clear 32.77 Estimated GFR 91 ml/min Glucose 91 (60-115) mg/dL Calcium 9.2 (8.4-10.6) mg/dL Troponin I < 0.01 L (0.01-0.04) ng/mL ECG Data Attestation: I personally reviewed and interpreted this ECG as follows: Discharge Plan Discharge Clinical Impression: Palpitation Patient Disposition: Home, Self-Care Condition: Stable Additional Instructions: During her stay in the ER today you had a couple of extra heartbeats called premature ventricular contractions and premature atrial complexes which are benign. Nothing needs to be done today however I do recommend that you follow- up with your field recorder as scheduled. You will be sent home today with a 24 hour athletic monitor. If you feel any chest pain, dizziness, vomiting or shortness of breath you should return to the ER. Prescriptions: No Action diphenhydramine-acetaminophen 25-500 mg tablet 1 tab PO .Bedtime PRN clopidogrel 75 mg tablet 75 mg PO DAILY ergocalciferol (vitamin D2) 10 mcg (400 unit) tablet 2,000 unit PO DAILY sotalol 80 mg tablet 40 mg PO BID multivitamin [Multiple Vitamins] Tablet 1 tab PO QDAY acetaminophen 650 mg tablet extended release 650 mg PO Q8H PRN meclizine 25 mg tablet 25 mg PO PRN cholestyramine-aspartame 4 gram powder in packet See Rx Instructions PO DAILY Rx Instructions: 4 Grams PO daily; lisinopril-hydrochlorothiazide 20-25 mg tablet 1 tab PO DAILY omeprazole 20 mg capsule,delayed release(DR/EC) 20 mg PO DAILY atorvastatin 10 mg tablet 10 mg PO .Bedtime methylprednisolone [Medrol (Gwyn)] 4 mg tablets,dose pack See Rx Instructions PO PER PKG DIR Qty: 21 0RF Rx Instructions: PO PER PKG DIR lidocaine HCl 4 % adhesive patch,medicated 1 patch topical DAILY PRN (Reason: pain) Qty: 30 0RF Follow Up/Referrals: Marla Christianson MD [Primary Care Provider] - Stand Alone Forms: [employer] Info Instructions
[2022-11-01 09:25] LABS: Troponin I* < 0.01 ng/mL (0.01-0.04)
[2022-11-01 09:30] LABS: Eosinophils Absolute Auto 0.12 K/uL (0.00-0.50); Eosinophils Percent Auto 2.2 % (0.0-7.0); Hematocrit 34.9 % (33.0-51.0); Hemoglobin* 10.9 gm/dL (12.0-16.0); Immature Granulocytes Abs Auto 0.01 K/uL (0.00-0.30); Immature Granulocytes Pct Auto 0.2 %; Lymphocytes Percent Auto 32.8 % (20-44); Mean Corpuscular HGB Conc 31 gm/dL (32-36); Mean Corpuscular Hemoglobin 29 pg (26-34); Mean Corpuscular Volume 93 fL (80-100); Monocytes Percent Auto 8.6 % (0.0-11.0); Neutrophils Absolute Auto 3.09 K/uL (1.7-7.0); Neutrophils Percent Auto 56.2 % (42.0-72.0); Platelet Count* 187 K/uL (140-440); RDW Coefficient of Variation % 12.4 % (11.5-15.5); Red Blood Count 3.77 m/uL (4.00-5.20); White Blood Count* 5.49 K/uL (4.50-11.00)
[2022-11-01 09:31] LABS: Slide Review Reflex No
--- NOTE | 2022-11-01 09:34 | ED.NURSE ---
Dr. Lucas is in talking with patient and patient is noticing something in the heart shows having some PACs.
== END 2022-11-01 10:23 | disposition home or self-care (01) ==
PROVIDERS: Emergency Provider Family Medicine; PCP Family Medicine
DX: R00.2 Palpitations (principal)
CPT/HCPCS: 36415; 80048; 84443; 84484; 85025; 93005; 93225; 93226; 94761; 99284

== ENCOUNTER 2022-12-31 10:03 | Outpatient (CLI) | payer MEDICARE, BC, SELFPAY ==
--- NOTE | 2022-12-31 10:15 | CRLHL7_ITS ---
For Patients: As a result of the Century Cures Act, medical imaging exams and procedure reports are released immediately into your electronic medical record. You may view this report before your referring provider. If you have questions, please contact your health care provider. Indication: Right hip pain Procedure : Informed consent was obtained. The site was marked. Time-out was performed. The skin of the right hip was cleansed with ChloraPrep. A sterile drape was placed. 8 cc of 1 percent lidocaine was administered for superficial anesthesia. Subsequently a 22 gauge spinal needle was introduced into the right hip joint under intermittent fluoroscopic guidance. Injection of 7 cc 1 percent lidocaine and 2 cc 40 milligram/cc Depo-Medrol into the right hip joint and performed. The needle was removed and hemostasis achieved with direct pressure. A dressing was placed. The patient tolerated the procedure well without immediate complication. Total fluoroscopy time 0.09 minutes. Impression: Successful fluoroscopically guided right hip injection with 80 milligrams of Depo-Medrol. Dictated by Zelalem Avila MD @ 12/31/2022 11:22:06 AM (Electronically Signed)
== END 2022-12-31 10:04 | disposition home or self-care (01) ==
LOC: RAD 10:03
PROVIDERS: PCP Family Medicine; Visit Provider Orthopaedic Surgery
DX: M25.551 Pain in right hip (principal); M54.50 Low back pain, unspecified
CPT/HCPCS: 20610; 77002; Q9966

== ENCOUNTER 2023-01-20 09:30 | Outpatient (RCR) | payer MEDICARE, BC, SELFPAY | END 2023-01-26 13:37 | disposition home or self-care (01) | PROVIDERS: PCP Family Medicine; Visit Provider Family Medicine | DX: M54.16 Radiculopathy, lumbar region (principal); M54.50 Low back pain, unspecified; Z51.89 Encounter for other specified aftercare | CPT/HCPCS: 97032; 97110; 97112; 97140; 97161 ==

== ENCOUNTER 2023-04-27 09:00 | Outpatient (RCR) | payer MEDICARE, BC, SELFPAY | END 2023-08-25 23:59 | disposition home or self-care (01) | PROVIDERS: PCP Family Medicine; Visit Provider Orthopaedic Surgery | DX: M54.50 Low back pain, unspecified (principal); Z51.89 Encounter for other specified aftercare | CPT/HCPCS: 97110; 97140; 97161 ==

== ENCOUNTER 2023-05-12 18:09 | Outpatient (CLI) | payer MEDICARE, BC, SELFPAY | END 2023-05-12 18:10 | disposition home or self-care (01) | LOC: AMB 05-16 17:27 | PROVIDERS: PCP Family Medicine; Visit Provider Family Medicine | DX: R11.2 Nausea with vomiting, unspecified (principal) | CPT/HCPCS: A0425; A0427 ==

== ENCOUNTER 2023-05-12 18:49 | Emergency (ER) | payer MEDICARE, BC, SELFPAY ==
[2023-05-12 18:57] VITALS: BP 175/83; PULSE 82; RESP 16; TEMP 37.8; O2SAT 97; BMI 29.3
[2023-05-12 19:00] VITALS: BP 164/78; PULSE 78; RESP 15; O2SAT 96
--- NOTE | 2023-05-12 19:13 | CRLHL7_ITS ---
For Patients: As a result of the Century Cures Act, medical imaging exams and procedure reports are released immediately into your electronic medical record. You may view this report before your referring provider. If you have questions, please contact your health care provider. INDICATION: Epigastric pain TECHNIQUE: CT abdomen and pelvis acquired with 100 cc Isovue 370 IV contrast. Permanently recorded images are archived. COMPARISON: CT abdomen and pelvis 06/23/2017 FINDINGS: Lower chest: Lung bases are clear. Mitral annulus calcification. Liver: Unremarkable. Normal in size and attenuation. No suspicious masses. Gallbladder and bile ducts: Status post cholecystectomy. No abnormal biliary ductal dilatation. Pancreas: Unremarkable. No mass or inflammation. Spleen: Unremarkable. Normal in size. No masses. Adrenal glands: Unremarkable. No nodules. Kidneys, Ureters, and Bladder: No suspicious renal masses, stones, or hydronephrosis. Unremarkable ureters. Small focus of air within the in the anti dependent portion of the bladder without mural thickening. GI tract: Moderate-sized hiatal hernia containing a third of the stomach. Normal in caliber. No sign of inflammation. Fluid filled colon. Previous partial small bowel resection. The appendix is not clearly visualized; however, there are no inflammatory changes in the right lower quadrant. Vasculature: Normal caliber abdominal aorta with mild atherosclerotic calcification. Mesenteric arteries are patent. Lymph nodes: No lymphadenopathy. Peritoneum/Abdominal Wall: Small fat-containing ventral hernia, unchanged. No free air or significant free fluid. Pelvis: Status post hysterectomy. Bones: Chronic mild compression fracture of L2. Otherwise, unremarkable for age. IMPRESSION: No acute findings within the abdomen pelvis. Fluid filled, nondilated colon. This is nonspecific but could be seen with diarrhea. Moderate-sized hiatal hernia containing approximately a third of the stomach, not significant changed compared to the prior exam. Recommend correlation for gastroesophageal reflux Small focus of air within the bladder lumen, recommend correlation for recent instrumentation. Please note that all CT scans at this facility use dose modulation, iterative reconstruction, and/or weight-based dosing when appropriate to reduce radiation dose to as low as reasonably achievable. Dictated by Jason Draper MD @ 05/12/2023 9:42:42 PM (Electronically Signed)
--- NOTE | 2023-05-12 19:17 | ED.GENADULT ---
HPI - General Adult General Time Seen by Provider: 19:17 Date Seen: 05/12/23 Chief complaint: Nausea/Vomiting Stated complaint: Sick Time Seen by Provider: 05/12/23 19:06 Source: patient Mode of arrival: EMS Limitations: no limitations History of Present Illness HPI narrative: Patient is a 77-year-old female with history of hypertension, hyperlipidemia presented to emergency department for epigastric pain and nausea. She states for the past day starting last night she has been having nausea and epigastric discomfort. She has not been eating much today because of the associated nausea. She has not vomited at all. Did have a fever earlier today and took Tylenol for it. She states she is also having diarrhea to the and has had 3 or 4 liquidy stools. She denies dysuria, weakness, numbness, headache, vision changes, chest pain, shortness of breath, lightheadedness, dizziness. She states she was at home with her was doing well today but was concerned due to the fever and the continuation of the symptoms. She was brought in by EMS and they did start fluids on her. She does not know if any sick contacts. Related Data Home Medications Medication Instructions Recorded Confirmed acetaminophen 650 mg 650 mg PO Q8H PRN 04/17/22 05/12/23 tablet,extended release atorvastatin 10 mg tablet 10 mg PO .Bedtime 04/17/22 cholestyramine-aspartame 4 gram See Rx Instructions PO DAILY 04/17/22 05/12/23 oral powder for susp in a packet clopidogrel 75 mg tablet 75 mg PO DAILY 04/17/22 05/12/23 diphenhydramine 25 1 tab PO .Bedtime PRN 04/17/22 mg-acetaminophen 500 mg tablet ergocalciferol (vitamin D2) 10 mcg 2,000 unit PO DAILY 04/17/22 05/12/23 (400 unit) tablet lisinopril 20 1 tab PO DAILY 04/17/22 05/12/23 mg-hydrochlorothiazide 25 mg tablet meclizine 25 mg tablet 25 mg PO PRN 04/17/22 multivitamin (Multiple Vitamins 1 tab PO QDAY 04/17/22 05/12/23 tablet) omeprazole 20 mg capsule,delayed 20 mg PO DAILY 04/17/22 05/12/23 release sotalol 80 mg tablet 40 mg PO BID 04/17/22 05/12/23 Previous Rx's Medication Instructions Recorded lidocaine HCl 4 % topical patch 1 patch topical DAILY PRN pain #30 07/12/22 ea Allergies Allergy/AdvReac Type Severity Reaction Status Date / Time codeine AdvReac Severe Nausea, Verified 05/12/23 19:03 vomiting, dizziness hydrocodone AdvReac Severe Nausea, Verified 05/12/23 19:03 vomiting, dizziness meperidine AdvReac Severe Nausea, Verified 05/12/23 19:03 vomiting, dizziness morphine AdvReac Severe Nausea, Verified 05/12/23 19:03 vomiting, dizzy NSAIDS (Non-Steroidal AdvReac Severe Nausea, Verified 05/12/23 19:03 Anti-Inflamma vomiting, dizziness ciprofloxacin AdvReac Mild Palpitation Verified 05/12/23 19:03 s oxycodone AdvReac Mild Nausea Verified 05/12/23 19:03 Review of Systems Status of ROS: Reports: 10 or more systems reviewed and unremarkable except as noted in History and below PFSH PFS Medical History Hiatal hernia History of supraventricular tachycardia Hypokalemia Lumbar degenerative disc disease Nausea 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 Pain of right lower extremity Premature atrial contraction Recurrent urinary tract infection Squamous cell carcinoma in situ (SCCIS) Urinary tract infection Surgical History History of bilateral cataract extraction (~2007) History of carpal tunnel release of both wrists History of cholecystectomy (~2002) History of resection of small bowel (~1991) History of total hysterectomy with bilateral salpingo-oophorectomy (BSO) (~1991) History of total knee replacement (~2009) Osteoarthritis of carpometacarpal (CMC) joint of right thumb (09/21/19) Family History Father FH: colonic polyps Leukemia Brother FH: colonic polyps Mother Coronary artery disease Hypercholesteremia High blood pressure Sister Breast cancer Social History Smoking Status: Never smoker Do you use any of these nicotine containing products: None How often do you have a drink containing alcohol: never AUDIT-C Alcohol total score: 0 Non-prescribed substance use: denies use service: No Exam Narrative: Exam Narrative: Const: Well-nourished, Well-developed, in mild distress Eyes: PERRL, no conjunctival injection, and symmetrical lids ENMT: Atraumatic external nose and ears. Moist mucous membranes. Neck: Symmetric, trachea midline, No thyromegaly. CVS: RRR, No murmurs or gallops. Peripheral pulses 2+ and equal in all extremities RESP: Unlabored respiratory effort. Clear to auscultation bilaterally. GI: Mild epigastric tenderness, Nondistended, No rebound or guarding. MSK:Extremities w/o deformity, Normal Active ROM Skin: Warm, Dry. No rashes or lesions. Neuro: Normal Muscle tone, No focal neurological deficits. Psych: Awake, Alert, & Oriented x3. Appropriate mood and affect. Const: Vital Signs, click to edit/add: Vital Signs - 24 hr 05/12/23 18:57 Temperature 100.0 F H Pulse Rate [Right Pulse Oximeter] 82 Respiratory Rate 16 Blood Pressure [Ri ght Upper Arm] 175/83 H Pulse Oximetry 97 Oxygen Delivery Me thod Room Air Course Vital Signs Vital signs: Initial Vital Signs Temperature 100.0 F H 05/12/23 18:57 Temperature Source Temporal Artery Scan 05/12/23 18:57 Pulse Rate 82 05/12/23 18:57 Respiratory Rate 16 05/12/23 18:57 Blood Pressure 175/83 H 05/12/23 18:57 Blood Pressure Mean 113 H 05/12/23 18:57 Blood Pressure Position Sitting 05/12/23 18:57 Pulse Oximetry 97 05/12/23 18:57 Oxygen Delivery Method Room Air 05/12/23 18:57 Vital Signs Temperature 100.0 F H 05/12/23 18:57 Pulse Rate 82 05/12/23 18:57 Respiratory Rate 16 05/12/23 18:57 Blood Pressure 175/83 H 05/12/23 18:57 Pulse Oximetry 97 05/12/23 18:57 Oxygen Delivery Method Room Air 05/12/23 18:57 Temperature 100.0 F H 05/12/23 18:57 Pulse Rate 82 05/12/23 18:57 Respiratory Rate 16 05/12/23 18:57 Blood Pressure 175/83 H 05/12/23 18:57 Pulse Oximetry 97 05/12/23 18:57 Oxygen Delivery Method Room Air 05/12/23 18:57 Medical Decision Making MDM Narrative Medical decision making narrative: Patient is an year female presented emergency department for nausea and epigastric pain. She also had a fever earlier today that resolved after taking Tylenol. She has not been eating or drinking much because of the nausea. She does admit to diarrhea and has had 3-4 watery stools today. Patient has not vomited. Due to the abdominal pain in the fever a CT abdomen pelvis with contrast was ordered. CBC, CMP, lipase, troponin, COVID, urinalysis were all ordered. Differential can include pancreatitis, gastritis, viral infection, ACS. Patient is CBC, CMP, lipase, troponin showed no concerning abnormalities. Hemoglobin appears to be a baseline. Patient's EKG showed no concerning abnormalities. On re-evaluation the patient states she is feeling dehydrated so a L of normal saline was ordered. She is also still nauseated after irregular insert also Zofran was given. Cold/flu/RSV is pending at this time. Urinalysis is also pending at this time. Patient is currently pending results of her CT scan and we signed out to Dr. Killian pending final disposition. Lab Data Labs: Lab Results 05/12/23 Range/Units 19:50 WBC 5.29 (4.50-11.00) K/uL RBC 3.97 L (4.00-5.20) m/uL Hgb 11.3 L (12.0-16.0) gm/dL Hct 36.1 (33.0-51.0) % MCV 91 (80-100) fL MCH 29 (26-34) pg MCHC 31 L (32-36) gm/dL RDW Coeff of Cece 13.1 (11.5-15.5) % Plt Count 152 (140-440) K/uL Neut % (Auto) 66.4 (42.0-72.0) % Lymph % (Auto) 18.5 L (20-44) % [place] % (Auto) 13.2 H (0.0-11.0) % Eos % (Auto) 1.3 (0.0-7.0) % Baso % (Auto) 0.2 (0.0-3.0) % Neut # (Auto) 3.51 (1.7-7.0) K/uL Lymph # (Auto) 1.00 (0.90-2.90) K/uL [place] # (Auto) 0.70 (0.00-0.90) K/UL Eos # (Auto) 0.07 (0.00-0.50) K/uL Baso # (Auto) 0.01 (0.00-0.30) K/uL Abs Immat Gran (auto) 0.02 (0.00-0.30) K/uL Imm/Tot Granulo (auto) 0.4 % Sodium 139 (135-149) mmol/L Potassium 3.3 L (3.6-5.1) mmol/L Chloride 109 (96-114) mmol/L Carbon Dioxide 21 (20-32) mmol/L BUN 22 (7-30) mg/dL Creatinine 0.6 (0.5-1.5) mg/dL Estimated Creat Clear 32.77 Estimated GFR 91 ml/min Glucose 92 (60-115) mg/dL Calcium 8.3 L (8.4-10.6) mg/dL Total Bilirubin 0.3 (0.1-1.5) mg/dL AST 32 (12-35) U/L ALT 18 (4-35) U/L Alkaline Phosphatase 41 (40-150) U/L Troponin I < 0.01 L (0.01-0.04) ng/mL Total Protein 7.0 (6.0-8.3) g/dL Albumin 3.9 (3.3-5.0) g/dL Lipase 139 (23-300) U/L ECG Data Attestation: I personally reviewed and interpreted this ECG as follows: (Normal sinus rhythm, 81 beats per minute, normal intervals, normal axis, no ST or T-wave abnormalities. Appears similar to previous EKG) Prior ECG tracings: available for review (11/01/2022) Discharge Plan Discharge Prescriptions: No Action diphenhydramine-acetaminophen 25-500 mg tablet 1 tab PO .Bedtime PRN clopidogrel 75 mg tablet 75 mg PO DAILY ergocalciferol (vitamin D2) 10 mcg (400 unit) tablet 2,000 unit PO DAILY sotalol 80 mg tablet 40 mg PO BID multivitamin [Multiple Vitamins] Tablet 1 tab PO QDAY acetaminophen 650 mg tablet extended release 650 mg PO Q8H PRN meclizine 25 mg tablet 25 mg PO PRN cholestyramine-aspartame 4 gram powder in packet See Rx Instructions PO DAILY Rx Instructions: 4 Grams PO daily; lisinopril-hydrochlorothiazide 20-25 mg tablet 1 tab PO DAILY omeprazole 20 mg capsule,delayed release(DR/EC) 20 mg PO DAILY atorvastatin 10 mg tablet 10 mg PO .Bedtime lidocaine HCl 4 % adhesive patch,medicated 1 patch topical DAILY PRN (Reason: pain) Qty: 30 0RF Follow Up/Referrals: Marla Christianson MD [Primary Care Provider] -
[2023-05-12 20:03] LABS: Basophils Absolute Auto 0.01 K/uL (0.00-0.30); Basophils Percent Auto 0.2 % (0.0-3.0); Eosinophils Absolute Auto 0.07 K/uL (0.00-0.50); Eosinophils Percent Auto 1.3 % (0.0-7.0); Hematocrit 36.1 % (33.0-51.0); Hemoglobin* 11.3 gm/dL (12.0-16.0); Immature Granulocytes Abs Auto 0.02 K/uL (0.00-0.30); Immature Granulocytes Pct Auto 0.4 %; Lymphocytes Percent Auto 18.5 % (20-44); Mean Corpuscular HGB Conc 31 gm/dL (32-36); Mean Corpuscular Hemoglobin 29 pg (26-34); Mean Corpuscular Volume 91 fL (80-100); Monocytes Percent Auto 13.2 % (0.0-11.0); Neutrophils Absolute Auto 3.51 K/uL (1.7-7.0); Neutrophils Percent Auto 66.4 % (42.0-72.0); Platelet Count* 152 K/uL (140-440); RDW Coefficient of Variation % 13.1 % (11.5-15.5); Red Blood Count 3.97 m/uL (4.00-5.20); White Blood Count* 5.29 K/uL (4.50-11.00)
[2023-05-12 20:09] LABS: Slide Review Reflex No
[2023-05-12 20:16] LABS: Albumin* 3.9 g/dL (3.3-5.0); Chloride* 109 mmol/L (96-114); Potassium* 3.3 mmol/L (3.6-5.1); Sodium* 139 mmol/L (135-149)
[2023-05-12] MEDS: METOCLOPRAMIDE HCL 5 MG/ML INJ 10 MG IVP (20:17)
[2023-05-12 20:18] LABS: Bilirubin Total* 0.3 mg/dL (0.1-1.5); Carbon Dioxide* 21 mmol/L (20-32); Creatinine* 0.6 mg/dL (0.5-1.5); Est. Creatinine Clearance* 32.77; Estimated Glomerular Filt Rate 91 ml/min
[2023-05-12 20:19] LABS: Alanine Aminotransferase* 18 U/L (4-35); Alkaline Phosphatase* 41 U/L (40-150); Aspartate Amino Transferase* 32 U/L (12-35); Blood Urea Nitrogen* 22 mg/dL (7-30); Calcium* 8.3 mg/dL (8.4-10.6); Glucose* 92 mg/dL (60-115); Lipase* 139 U/L (23-300)
--- NOTE | 2023-05-12 20:29 | ED.NURSE ---
Patient incontinent of stool. Not liquid enough to send to lab for c.diff sample.
[2023-05-12 20:30] VITALS: RESP 15; O2SAT 96
[2023-05-12 20:42] LABS: Troponin I* < 0.01 ng/mL (0.01-0.04)
[2023-05-12 20:51] LABS: PCR FLU A Negative PCR FLU A (Negative); PCR FLU B Negative PCR FLU B (Negative); PCR RSV Negative PCR RSV (Negative)
[2023-05-12 21:00] VITALS: BP 143/72; PULSE 84
[2023-05-12] MEDS: 0.9 % SODIUM CHLORIDE 1000 ml 1,000 ML IV (21:23)
[2023-05-12 21:25] LABS: Appearance Urine Cloudy (Clear); Bilirubin Urine Negative (Negative); Blood Urine Trace-intact (Negative); Color Urine Yellow (Yellow); Glucose Urine Negative (Negative); Ketones Urine Trace (Negative); Leukocyte Esterase Urine Trace (Negative); Nitrite Urine Negative (Negative); Protein Urine Negative (Negative); Urobilinogen Urine 0.2 (0.2-1.0); pH Urine 5.5 (5.0-8.5)
[2023-05-12] MEDS: ONDANSETRON 2 MG/ML inj 4 MG IVP (21:28)
[2023-05-12 21:30] VITALS: BP 136/76; PULSE 80; RESP 18; O2SAT 95
[2023-05-12 21:38] LABS: Bacteria Urine Moderate; RBC Urine 0-2 (0-2); Squamous Epithelial Cell Urine Few (None-Few)
[2023-05-12 22:00] VITALS: BP 139/73; PULSE 81; RESP 13; O2SAT 98
[2023-05-12 22:30] LABS: SARS PCR* Negative SARS-CoV-2 (Negative)
[2023-05-12 22:59] LABS: C.Difficile Negative (Negative); CDIFFEPI 027 PRESUMPTIVE NEGATIVE (Negative)
== END 2023-05-12 23:46 | disposition home or self-care (01) ==
PROVIDERS: Emergency Provider Student in an Organized Health Care Education/Training Program; PCP Family Medicine
DX: R10.13 Epigastric pain (principal); R11.0 Nausea
CPT/HCPCS: 36415; 74177; 80048; 80053; 81001; 83690; 84484; 84702; 85025; 85379; 87045; 87046; 87086; 87186; 87427; 87493; 87631; 93005; 96374; 96375; 99283; 99284; J2405; J2765; J7030; Q9967

== ENCOUNTER 2023-08-17 12:53 | Outpatient (CLI) | payer MEDICARE, BC, SELFPAY | END 2023-08-17 12:54 | disposition home or self-care (01) | LOC: RAD 12:53 | PROVIDERS: PCP Family Medicine; Visit Provider Internal Medicine Cardiovascular Disease | DX: I10 Essential (primary) hypertension (principal); I51.7 Cardiomegaly; I34.0 Nonrheumatic mitral (valve) insufficiency; I07.1 Rheumatic tricuspid insufficiency; E87.6 Hypokalemia | CPT/HCPCS: 93306 ==

== ENCOUNTER 2025-01-21 19:38 | Outpatient (CLI) | payer MEDICARE, BC, SELFPAY | END 2025-01-21 19:39 | disposition home or self-care (01) | LOC: AMB 01-23 13:36 | PROVIDERS: PCP Family Medicine; Visit Provider Student in an Organized Health Care Education/Training Program | DX: R51.9 Headache, unspecified (principal) | CPT/HCPCS: A0425; A0429 ==

== ENCOUNTER 2025-01-21 20:18 | Emergency (ER) | payer MEDICARE, BC, SELFPAY ==
[2025-01-21 20:19] VITALS: BP 130/81; PULSE 92; RESP 16; TEMP 37.7; O2SAT 96; BMI 29.9
--- OUTSIDE RECORDS SUMMARY | 2025-01-21 20:20 | XMS_ITS | Clinical Summary ---
Author Organization [facility] Address [address] [place] [address] Care Team Providers Care Exterminator Helper Name Role Phone Marla Christianson MD Primary Care Provider [phone] Allergies Active Allergy Reactions Criticality Noted Date Comments Sulfamethoxazole-Trime thoprim Other - Describe In Comment Field 06/14/2019 Affects heart medications Ciprofloxacin Palpitations Medium 06/29/2017 Codeine Nausea And Vomiting,Dizziness High 01/02/2014 Meperidine Nausea And Vomiting,Dizziness High 01/02/2014 Hydrocodone Nausea And Vomiting High 03/29/2021 Morphine Nausea And Vomiting,Dizziness High 12/15/2013 Nsaids (Non-Steroidal Anti-Inflammatory Drug) Nausea And Vomiting,GI Bleeding High 10/17/2008 Gastritis Other reaction(s): NAUSEA, VOMITING, DIZZINESS Oxycodone Nausea And Vomiting,Dizziness High 12/15/2013 Unlisted Allergen (Include Detail In Comments) Nausea And Vomiting 08/02/2021 Hydrocodone-Acetaminop hen Nausea And Vomiting,Dizziness High 12/15/2013 Medications diphenhydrAMINE-ac etaminophen 25-500 mg (TYLENOL PM EXTRA STRENGTH) 25-500 mg tablet Take 1 tablet. by mouth at bedtime. Max acetaminophen dose: 4000mg in 24 hrs. 0 12/16/19 14 Active acetaminophen SR (TYLENOL ARTHRITIS) 650 mg extended release tablet Take 1 tablet by mouth every 8 hours if needed. Max acetaminophen dose: 4000mg in 24 hrs. 0 12/16/19 14 Active multivitamin (MVI) tablet Take 1 tablet by mouth once daily. 0 11/06/19 16 Active durable medical equipment (DME)Indications:R ight lumbar radiculopathy Lumbar support brace. 1 Each 05/16/20 19 Active calcium carbonate (Tums) 200 mg calcium (500 mg) chewable tabletIndications: Osteoporosis, unspecified osteoporosis type, unspecified pathological fracture presence Chew 1 Tablet (500 mg) by mouth 3 times daily with meals. 0 01/04/20 21 Active fluticasone (50 mcg per actuation) nasal solution (FLONASE)Indicatio ns:Sinus pressure USE ONCE DAILY AT BEDTIME (USE 2 SPRAYS IN EACH NOSTRIL) 16 g 01/23/20 23 Active cholecalciferol (Vitamin D-3) 400 unit tablet Take 1 Tablet (400 units) by mouth once daily. 07/08/20 23 Active loratadine (CLARITIN) 10 mg tabletIndications: Sinus pressure Take 1 Tablet (10 mg) by mouth once daily. 90 Tablet 3 10/14/19 24 Active sennosides-docusat e (SENOKOT S) (8.6-50 mg) tabletIndications: Female genital prolapse, unspecified type Take 1 Tablet by mouth once daily. 14 Tablet 4 5:26 PM MANUSCRIPT READER 11/12/19 24 Active potassium chloride (K-TAB) 10 mEq extended-release tabletIndications: Hypokalemia TAKE 1 TABLET BY MOUTH ONCE DAILY WITH A MEAL 90 Tablet 3 06/15/20 24 Active sotaloL (BETAPACE) 80 mg tabletIndications: SVT (supraventricular tachycardia) (HC) TAKE 1 TABLET BY MOUTH IN THE MORNING AND 1/2 (ONE-HALF) IN THE EVENING 135 Tablet 09/30/20 24 Active traMADoL (ULTRAM) 50 mg tabletIndications: Spinal stenosis of lumbar region with neurogenic claudication Take 0.5-1 Tablets (25-50 mg) by mouth every 8 hours if needed for Pain. 30 Tablet 10/27/19 25 Active lisinopril-hydroch lorothiazide, 20-25 mg, (PRINZIDE, ZESTORETIC) 20-25 mg per tabletIndications: HTN (hypertension) Take 1 Tablet by mouth once daily. 90 Tablet 3 10/27/19 25 Active clopidogreL (PLAVIX) 75 mg tabletIndications: TIA (transient ischemic attack),Other symptoms and signs involving the nervous system Take 1 Tablet (75 mg) by mouth once daily in the morning. 90 Tablet 3 10/27/19 Active cholestyramine-asp artame (Cholestyramine Light) 4 gram powderIndications: Chronic constipation Mix 2 g in liquid then take by mouth before breakfast. 180 g 3 10/27/19 Active cephalexin 250 mg capsuleIndications :Frequent urinary tract infections TAKE 1 CAPSULE BY MOUTH ONCE DAILY FOR UTI PROPHYLAXIS 90 Capsule 10/27/19 25 Active atorvastatin (LIPITOR) 10 mg tabletIndications: Hyperlipidemia, unspecified hyperlipidemia type Take 1 Tablet (10 mg) by mouth once daily. 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 Hiatal hernia 07/23/2017 Overview (06/08/2019): EGD 07/2017 hiatal hernia, hyperplastic polyp EGD 05/2019 HH, gastritis Atrial tachycardia 04/21/2017 PAC (premature atrial contraction) 04/21/2017 Lumbar facet arthropathy 09/11/2016 Lumbar foraminal stenosis 09/11/2016 Lumbar spinal stenosis 09/11/2016 SVT (supraventricular tachycardia) 01/03/2014 Overview (01/03/2014): -s/p EP study/ablation Atrial Tachycardias 01/02/2014 HTN (hypertension) Hyperlipemia Overview (04/02/2016): Borderline Osteoporosis Encounters Date Type Department Care Team Description 12/15/2024 10:00 AM MANUSCRIPT READER Ancillary Procedure [facility] [address] [place] [address] 12/15/2024 Travel 11/23/[address] [address] [place], [facility] Director Plan (referral for Pain Consult.) 11/23/2024 Telephone [facility] [address] [facility] [place] [address] Marla Christianson MD Questions (Spine appointment ) 11/08/2024 Refill [facility] [address] [facility] [place] [address] Marla Christianson MD Refill Request (Omeprazole) 10/27/2024 9:10 AM MANUSCRIPT READER Office Visit [facility] [address] [place] [address] Marla Christianson MD Medicare ANNUAL (subsequent) Visit (79 year old) 10/27/2024 Travel from Last 3 Months Immunizations Immunization Administration Dates Next Due COVID-19 VACCINE SPIKEVAX (M ODERNA 50MCG/0.5ML) 12YO+ PFS 10/27/2024,10/14/2023 COVID-19 vaccine (iKONVERSE-Bio NTech 30mcg/0.3mL) 12YO+ BIVALENT PF, MDV 07/09/2022 COVID-19 vaccine (iKONVERSE-Bio NTech 30mcg/0.3mL) PF, MDV 12/22/2020,12/01/2020 Influenza Virus, Unspecified 07/10/2019,07/27/20 17,06/24/2016 Influenza, High-dose Inactivated 024,07/04/2019,07/22/2018,07/27,06/09/2016,07/23/2015 Influenza, High-dose Quadriv alent Inactivated 07/01/2023,07/01/2022,07/02/2020 Influenza, IIV3 (Age >=3 years) 07/11/2013,07/25 Influenza, IIV4 07/27/2017 Influenza, Inactivated IIV3 (Age 65+ Years) Preserv Free 07/12/2017 Pneumococcal Conj 20-valent (Prevnar 20) 02/24/2024 Pneumococcal Poly,23-Valent (Pneumovax) 03/29/2015 Pneumococcal conj 13-Valent (Prevnar 13) 03/29/2015,03/11/2012 RSV, Bivalent Vaccine Recons tituted (Abrysvo 120MCG/0.5mL) 02/24/2024 Td (Age >=7 Years) 09/22/1994 Tdap 09/28/2024,03/29/2015 Zoster (Shingrix-RZV, recombinant) 03/09/2019, Zoster (Zostavax-ZVL, live) 04/27/2012 Family History Medical History Relation Name Comments Cancer Father leukemia - 87 Pernicious anemia Father Heart Disease Mother 94 Cancer-breast Other niece - age 45 Cancer-breast Sister Pernicious anemia Sister Cancer-ovarian No Family History Relation Name Status Comments Father (Age 87) Mother (Age 94) Other Sister Social History Tobacco Use Types Packs/Day Years Used Date Smoking Tobacco: Never Smokeless Tobacco: Never Tobacco Cessation:Counseling Given: Yes Alcohol Use Standard Drinks/Week Comments Yes 0 (1 standard drink = 0.6 oz pure alcohol) maybe 1 glass of wine/month. rarely PHQ-2 Answer Date Recorded PHQ-2 TOTAL SCORE 0 10/27/2024 Social Connections Answer Date Recorded Do you often feel lonely or isolated from those around you? 0 01/08/2024 Financial Resource Strain Answer Date R ecorded Difficulty of Paying Living Expenses 3 01/08/2024 Difficulty of Paying Living Expenses Not on file 01/08/2024 Food Insecurity Answer Date Recorded Do you worry your food will run out before you are able to buy more? 1 01/08/2024 Transportation Needs Answer Date Record ed Does lack of transportation keep you from medica l appointments? 1 01/08/2024 Does lack of transportation keep you from work, meetings or getting things that you need? 1 01/08/2024 Housing Stability Answer Date Recorded What is your housing situation today? 1 01/08/2024 Utilities Answer Date Recorded Do you have trouble paying f or utilities (for example, heat, electricity, water, phone)? 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 Not on file Not on file Not on file Obstetrics History Para Term AB IAB SAB Ectopic Multiple Livin g Live Births 2 2 Date Outcome GA Total Labor Labor/2nd/3rd Weight Sex Type Anes PTL Caren A1 A5 Name Clin Last Filed Vital Signs Vital Sign Reading Time Taken Comments Blood Pressure 122/62 10/27/2024 10:14 AM MANUSCRIPT READER Pulse 61 10/27/2024 9:27 AM MANUSCRIPT READER Temperature 36.6 C (97.8 F) 11/12/2023 8:50 AM MANUSCRIPT READER Respiratory Rate 16 01/07/2024 10:14 AM CDT Oxygen Saturation 100% 10/27/2024 9:27 AM MANUSCRIPT READER Inhaled Oxygen Concentration - - Weight 71.9 kg (158 lb 9.6 oz) 10/27/2024 9:27 A M MANUSCRIPT READER Height 150.3 cm (4' 11.17) 10/27/2024 9:[address] Body Mass Index 31.85 10/27/2024 9:27 AM MANUSCRIPT READER Plan of Treatment Health Maintenance Due Date Last Done Comments COVID-19 vaccine series ( season) 2025 10/27/2024, 10/14/2023, 07/09/2022, Additional history exists BMI (ht and wt on same day) for age 18+ 10/27/2025 10/27/2024, 11/10/2023, 10/14/2023, Additional history exists Depression screening for age 12+ 10/27/2025 10/27/2024, 10/15/2023, 10/15/2023, Additional history exists Medicare Wellness for age 65+ 10/28/2025, 10/14/2023, 07/09/2022, Additional history exists Tetanus booster 09/28/2034 09/28/2024, 03/12, 09/22/1994 Zoster (shingles) series for age 50+ Completed 03/09/2019, 12/29/2018, 04/27/2012 DEXA/DXA scan for age 65+ Completed 2023, 07/15/2022, 04/07/2019, Additional history exists Pneumococcal series for age 50+ Completed 02/24/2024, 03/29/2015, 03/29/2015, Additional history exists RSV vaccine for adults or Completed 02/24/2024 Influenza Vaccine Completed 09/28/2024, , 07/04/2019, Additional history exists Tdap Completed 09/28/2024, 03/29/2015 Medical Devices Implanted Type Area Associate Financial Representative Device Identifier Shelf Expiration Date Model / Serial / Lot Sling Pelvic Altis Sis Continence - [id number] Implanted:Qty: 1 on 11/12/2023 by Jason Joy MD at [facility] N/A: Vagina [employer] 05/04/2026 [id number] / / [id number] Procedures Procedure Name Priority Date/Time Associated Diagnosis Comments XR MAMMO DENISE BILAT SCREEN Routine 12/15/2024 10:27 AM MANUSCRIPT READER Visit for screening mammogram COMP METABOLIC PANEL Routine 10/27/2024 10:29 AM MANUSCRIPT READER HTN (hypertension) SVT (supraventricular tachycardia) (HC) LIPID PANEL W REFLEX MEASURED LDL Routine 10/27/2024 10:29 AM MANUSCRIPT READER Hyperlipidemia, unspecified hyperlipidemia type XR DXA BONE DENSITY 2 SITES AXIAL Routine 02/22/2024 9:15 AM CDT Osteopenia, unspecified location from Last 3 Months or Most Recently Relevant to Health Maintenance Results * XR MAMMO DENISE BILAT SCREEN (12/15/2024 10:27 AM MANUSCRIPT READER) Anatomical Region Laterality Modality BREASTS, Breast Left, Breast Right Bilateral Mammography Impressions 12/15/2024 3:34 PM MANUSCRIPT READER There is no radiographic evidence for malignancy. Recommend annual mammograms. MAMMOGRAM ASSESSMENT: ACR 1 Negative PATIENTS: You will also receive a letter with your examination results in an easy to read format. If you have questions about your results, please contact your referring provider. Narrative 12/15/2024 3:34 PM MANUSCRIPT READER For Patients: As a result of the Century Cures Act, medical imaging exams and procedure reports are released immediately into your electronic medical record. You may view this report before your referring provider. If you have questions, please contact your health care provider. XR MAMMO DENISE BILAT SCREEN [[id number]] CLINICAL HISTORY: This is an asymptomatic 79 y.o. patient. INDICATION FOR EXAM: Mammogram Screening. TECHNIQUE: CC and MLO views were obtained. This study was evaluated with the assistance of Computer-Aided Detection. Breast Tomosynthesis was used in interpretation. COMPARISON FILM: Yes 11/06/23 [facility] 11/04/22 [facility] FINDINGS: There are scattered areas of fibroglandular density. There are no dominant masses, suspicious micro calcifications or areas of architectural distortion. Marla Christianson MD MAMMO Final Resul t * (ABNORMAL) LIPID PANEL W REFLEX MEASURED LDL (10/27/2024 10:29 AM MANUSCRIPT READER) CHOLESTEROL, TOTAL 160 <200 mg/dL [facility] HDL CHOLESTEROL 51 > OR = 50 mg/dL [facility] TRIGLYCERIDES 249(H) <150 mg/dL [facility] Comment: If a non-fasting specimen was collected, consider repeat triglyceride testing on a fasting specimen if clinically indicated. Bouchra et al. J. of Clin. Lipidol. 2015;9:129-169. LDL-CHOLESTEROL 76 mg/dL (calc) [facility] Comment: Reference range: <100 Desirable range <100 mg/dL for primary prevention; <70 mg/dL for patients with CHD or diabetic patients with > or = 2 CHD risk factors. LDL-C is now calculated using the Benji-Rocio calculation, which is a validated novel method providing better accuracy than the Friedewald equation in the estimation of LDL-C. Benji SS et al. FARRAH. 2013;310(19): 9185-1535 (http://education.[employer]faq/AGO098) CHOL/HDLC RATIO 3.1 <5.0 (calc) [facility] NON HDL CHOLESTEROL 109 <130 mg/dL (calc) [facility] Comment: For patients with diabetes plus 1 major ASCVD risk factor, treating to a non-HDL-C goal of <100 mg/dL (LDL-C of <70 mg/dL) is considered a therapeutic option. Blood BLOOD SPECIMEN / Unknown 10/27/2024 10:29 AM MANUSCRIPT READER 10/27/2024 10:29 AM MANUSCRIPT READER us Marla Christianson MD CHEMISTRY Final Resul t [employer] [facility] [address] [place] [address], [facility] [address] [place] [address] * (ABNORMAL) COMP METABOLIC PANEL (10/27/2024 10:29 AM MANUSCRIPT READER) Pathologist [facility] GLUCOSE 80 65 - 99 mg/dL [facility] Comment: Fasting reference interval UREA NITROGEN (BUN) 17 7 - 25 mg/dL [facility] CREATININE 0.79 0.60 - 0.95 mg/dL [facility] EGFR 75 > OR = 60 mL/min/1. 73m2 [facility] BUN/CREATININE RATIO SEE NOTE: 6 - 22 (calc) [facility] Comment: Not Reported: BUN and Creatinine are within reference range. SODIUM 139 135 - 146 mmol/L [facility] POTASSIUM 4.5 3.5 - 5.3 mmol/L [facility] CHLORIDE 105 98 - 110 mmol/L [facility] CARBON DIOXIDE 23 20 - 32 mmol/L [facility] CALCIUM 9.2 8.6 - 10.4 mg/dL [facility] PROTEIN, TOTAL 7.6 6.1 - 8.1 g/dL [facility] ALBUMIN 4.4 3.6 - 5.1 g/dL [facility] GLOBULIN 3.2 1.9 - 3.7 g/dL (calc) [facility] ALBUMIN/GLOBULIN RATIO 1.4 1.0 - 2.5 (calc) [facility] BILIRUBIN, TOTAL 0.3 0.2 - 1.2 mg/dL [facility] ALKALINE PHOSPHATASE 35(L) 37 - 153 U/L [facility] AST 19 10 - 35 U/L [facility] ALT 10 6 - 29 U/L [facility] Blood BLOOD SPECIMEN / Unknown 10/27/2024 10:29 AM MANUSCRIPT READER 10/27/2024 10:29 AM MANUSCRIPT READER Marla Christianson MD CHEMISTRY Final Resul t [employer] [facility] [address] [place] [address], [facility] [address] [place] [address] * (ABNORMAL) XR DXA BONE DENSITY 2 SITES AXIAL (02/22/2024 9:15 AM CDT) Anatomical Region Laterality Modality Spine, HIPS, HIPL, HIPR Other Impressions 03/01/2024 1:47 PM CDT Osteoporosis. RECOMMENDATIONS: The National Osteoporosis Foundation recommends pharmacologic treatment for patients with T-scores of -2.5 or less, patients with prior history of fragility fractures, or patients with 10-year probability of greater than 3% at hips or greater than 20% of suffering major osteoporotic fractures. Recommend continued optimization of calcium and vitamin D intake through dietary means and/or supplementation and regular exercise. Consider pharmacologic therapy for osteoporosis. Follow-up bone density reading in 2 years if therapy initiated to assess therapeutic efficacy. Crystal Baltazar PA-C [facility] 03/01/2024 Narrative 03/01/2024 1:47 PM CDT For Patients: Results are automatically released to your [facility] account once available, in compliance with federal regulations. This means that you may see your results before your provider has had a chance to review them. Please allow 2-3 business days for your provider to comment on the results. XR DXA Bone Mineral Density (BMD) EXAM LOCATION: [address] [address] PATIENT NAME: Claudia Rhodes DATE OF : 1945 EXAM DATE: 02/22/2024 REQUESTING PROVIDER: Marla Christianson MD GENDER AT : female HEIGHT: 5' (11/12/2023) WEIGHT: 159 lb 3.2 oz (01/12/2024) MENOPAUSAL STATUS: Postmenopausal RACE/ETHNICITY: White RISK FACTORS: Family History of Osteoporosis and White Race CURRENT MEDICATION FOR BONE LOSS: NONE INDICATION: Osteopenia, unspecified location COMPARISON DATE(S): 2021 for hips only DXA scans are compared to prior studies for a patient only when the two (or more) studies were performed on the same scanner. It is not possible to compare data generated on one scanner to data from another because there are not standards in DXA equipment. This applies even if the two scanners are made by the same development analyst. PROCEDURE: Dual-energy x-ray absorptiometry performed with routine technique. Reporting is completed in the form of a T-score. The T-score represents the standard deviation from peak bone mass based on young healthy adult. A Z-score is used for diagnosis in premenopausal women, and for men under the age of 50. FINDINGS: RESULT LUMBAR SPINE L1 - L4 BMD: 0.997 g/cm2 T-Score: - 1.6 Z-Score: + 0.0 Change from prior: None RESULTS FEMUR Left femoral neck BMD: 0.780 g/cm2 T-Score: - 1.9 Z-Score: + 0.2 Change from prior in 2021: Increase 9.2%. Right femoral neck BMD: 0.692 g/cm2 T-Score: - 2.5 Z-Score: - 0.5 Change from prior in 2021: Increase 23.2%. Left hip BMD: 0.763 g/cm2 T-Score: - 1.9 Z-Score: - 0.1 Change from prior in 2021: Increase 4.2%. Right hip BMD: 0.730 g/cm2 T-Score: - 2.2 Z-Score: - 0.4 Change from prior in 2021: Decrease 4.6%. WHO criteria: Normal: T-score at or above -1 SD Osteopenia: T-score between -1.1 and -2.4 SD Osteoporosis: T-score at or below -2.5 SD FRAX RISK CALCULATION (USED FOR OSTEOPENIA ONLY): 10-year probability of major osteoporotic fracture: 18.7%. 10-year probability of hip fracture: 6.4%. us Marla Christianson MD DEXA Final Resul t from Last 3 Months or Most Recently Relevant to Health Maintenance Insurance MEDICARE PART B HB ONLY MEDICARE PART A HB ONLY [facility] MEDIC[facility] PB ONLY Advance Directives Documents on File Type Date Recorded Patient Art Tracer Expl anation Healthcare Directive 01/02/2014 12:00 AM Healthcare Directive 01/02/2014 12:00 AM * Full Code (Latest Code Status on File) Date Activated Date Inactivated Comments 11/12/2023 6:35 AM 11/12/2023 1:46 PM Question Answer Comments Code Status Discussion: Reviewed Preferences * Full Code Date Activated Date Inactivated Comments 06/20/2021 12:58 AM 06/21/2021 3:25 PM Question Answer Comments Code Status Discussion: Discussed * Full Code Date Activated Date Inactivated Comments 01/02/2014 6:05 AM 01/03/2014 1:53 PM Care Teams Exterminator Helper Relationship Specialty Start Date End Date Marla Christianson MD [address] [place] [address] PCP - General Family Practice 07/28/17
--- NOTE | 2025-01-21 20:33 | ED.GENADULT ---
HPI - General Adult General Chief complaint: Headache/Migraine Stated complaint: Headache Time Seen by Provider: 01/21/25 20:27 History of Present Illness HPI narrative: This 79-year-old female comes in reporting headache and fever that came on this afternoon. She does not report any upper respiratory symptoms of cough for congestion. She has not have sore throat or other signs of infection otherwise. She states that she is taking cephalexin daily because of recurrent urinary tract infections. She denies having any dysuria symptoms currently. She states that she is feeling better now. She states that she measured a temperature of a 100? initially and then later temperature of a 102?. She arrives here with normal temperature and states that she has not taken any Tylenol for the past 5 hours. She does take Tylenol several times a day regularly to treat some chronic pain. She states that she is feeling better at this time. Related Data Home Medications ?Medication ?Instructions ?Recorded ?Confirmed acetaminophen 650 mg 650 mg PO Q8H PRN 04/17/22 01/21/24 tablet,extended release atorvastatin 10 mg tablet 10 mg PO .Bedtime 04/17/22 01/21/24 cholestyramine-aspartame 4 gram See Rx Instructions PO DAILY 04/17/22 01/21/24 oral powder for susp in a packet clopidogrel 75 mg tablet 75 mg PO DAILY 04/17/22 01/21/24 ergocalciferol (vitamin D2) 10 mcg 2,000 unit PO DAILY 04/17/22 01/21/24 (400 unit) tablet lisinopril 20 1 tab PO DAILY 04/17/22 01/21/24 mg-hydrochlorothiazide 25 mg tablet multivitamin (Multiple Vitamins 1 tab PO QDAY 04/17/22 01/21/24 tablet) omeprazole 20 mg capsule,delayed 20 mg PO DAILY 04/17/22 01/21/24 release sotalol 80 mg tablet 40 mg PO BID 04/17/22 01/21/24 tramadol 50 mg tablet 50 mg PO Q6-8H PRN 01/21/24 01/21/24 cephalexin 250 mg capsule mg PO 07/18/24 07/18/24 potassium chloride 10 mEq 10 meq PO DAILY 07/18/24 07/18/24 tablet,extended release Allergies Allergy/AdvReac Type Severity Reaction Status Date / Time codeine AdvReac Severe Nausea, Verified 07/18/24 16:16 vomiting, dizziness hydrocodone AdvReac Severe Nausea, Verified 07/18/24 16:16 vomiting, dizziness meperidine AdvReac Severe Nausea, Verified 07/18/24 16:16 vomiting, dizziness morphine AdvReac Severe Nausea, Verified 07/18/24 16:16 vomiting, dizzy NSAIDS (Non-Steroidal AdvReac Severe Nausea, Verified 07/18/24 16:16 Anti-Inflamma vomiting, dizziness ciprofloxacin AdvReac Mild Palpitation Verified 07/18/24 16:16 s oxycodone AdvReac Mild Nausea Verified 07/18/24 16:16 Review of Systems Status of ROS: Reports: 10 or more systems reviewed and unremarkable except as noted in History and below Narrative: Constitutional: No weight gain or loss. She reports a fever that began this afternoon. Eyes: No discharge. No vision changes. HENT: No congestion, no sore throat, no ear pain. Cardiovascular: No chest pain, no palpitations. Respiratory: No shortness of breath, no wheezes, no cough. Gastrointestinal: No abdominal pain, no vomiting, no diarrhea. Genitourinary: No dysuria, no hematuria. Musculoskeletal: Normal range of motion. Skin: No rashes, no pruritis. Neurological: No dizziness, weakness, sensory change, speech change. Endo/Heme/Allergies: No bruising or bleeding. No polydipsia. Pysch: no suicidality, no anxiety, no insomnia. All other systems reviewed and are negative. [facility] Medical History Hypokalemia ?E87.6 - Hypokalemia (ICD-10) Lumbar degenerative disc disease ?M51.36 - Other intervertebral disc degeneration, lumbar region (ICD-10) 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 ?M18.0 - Bilateral primary osteoarthritis of first carpometacarpal joints (ICD-10) Urinary tract infection ?N39.0 - Urinary tract infection, site not specified (ICD-10) Squamous cell carcinoma in situ (SCCIS) ?D09.9 - Carcinoma in situ, unspecified (ICD-10) Recurrent urinary tract infection ?N39.0 - Urinary tract infection, site not specified (ICD-10) Premature atrial contraction ?I49.1 - Atrial premature depolarization (ICD-10) Pain of right lower extremity ?M79.604 - Pain in right leg (ICD-10) Nausea ?R11.0 - Nausea (ICD-10) History of supraventricular tachycardia ?Z86.79 - Personal history of other diseases of the circulatory system (ICD-10) Hiatal hernia ?K44.9 - Diaphragmatic hernia without obstruction or gangrene (ICD-10) Surgical History Osteoarthritis of carpometacarpal (CMC) joint of right thumb (09/21/19) ?M18.11 - Unilateral primary osteoarthritis of first carpometacarpal joint, right hand (ICD-10) History of total knee replacement (~2009) ?Z96.659 - Presence of unspecified artificial knee joint (ICD-10) History of total hysterectomy with bilateral salpingo-oophorectomy (BSO) (~1991) ?Z90.710 - Acquired absence of both cervix and uterus (ICD-10) ?Z90.722 - Acquired absence of ovaries, bilateral (ICD-10) ?Z90.79 - Acquired absence of other genital organ(s) (ICD-10) History of resection of small bowel (~1991) ?Z90.49 - Acquired absence of other specified parts of digestive tract (ICD-10) History of cholecystectomy (~2002) ?Z90.49 - Acquired absence of other specified parts of digestive tract (ICD-10) History of carpal tunnel release of both wrists ?Z98.890 - Other specified postprocedural states (ICD-10) History of bilateral cataract extraction (~2007) ?Z98.41 - Cataract extraction status, right eye (ICD-10) ?Z98.42 - Cataract extraction status, left eye (ICD-10) Family History Father FH: colonic polyps Leukemia Brother FH: colonic polyps Mother Coronary artery disease Hypercholesteremia High blood pressure Sister Breast cancer Social History Smoking Status: Never smoker Do you use any of these nicotine containing products: None Second hand tobacco smoke exposure: No How often do you have a drink containing alcohol: never AUDIT-C Alcohol total score: 0 Non-prescribed substance use: denies use service: No Exam Narrative: Exam Narrative: Constitutional: Well-developed, well-nourished, no acute distress. HEENT: Normocephalic, atraumatic. Neck: Normal range of motion. Nontender. Supple. Heart: Regular. No murmurs. Normal rate. Intact distal pulses. Lungs: Clear to auscultation. No chest discomfort. No wheezes, rhonchi, or rales. Abdomen: Normal bowel sounds. Nontender. No rebound tenderness. Genitalia: Deferred. Back: No midline tenderness. Normal range of motion. Extremities: Normal range of motion. No injury. Skin: Intact. No rash. Warm. No erythema or pallor. Neurologic: No altered sensation. No weakness. Alert and oriented. Psychiatric: No suicidality. No anxiety or depression. No insomnia. Nursing notes and vitals signs are reviewed. Const: Vital Signs, click to edit/add: Vital Signs - 24 hr 01/21/25 20:19 Temperature 99.8 F H Pulse Rate [Pulse Oximeter] 92 Respiratory Rate 16 Blood Pressure [Ri ght Upper Arm] 130/81 Pulse Oximetry 96 Oxygen Delivery Me thod Room Air Course Vital Signs Vital signs: Initial Vital Signs Temperature 99.8 F H 01/21/25 20:19 Temperature Source Temporal Artery Scan 01/21/25 20:19 Pulse Rate 92 01/21/25 20:19 Respiratory Rate 16 01/21/25 20:19 Blood Pressure 130/81 01/21/25 20:19 Blood Pressure Mean 97 01/21/25 20:19 Blood Pressure Position Sitting 01/21/25 20:19 Pulse Oximetry 96 01/21/25 20:19 Oxygen Delivery Method Room Air 01/21/25 20:19 Vital Signs Temperature 99.8 F H 01/21/25 20:19 Pulse Rate 92 01/21/25 20:19 Respiratory Rate 16 01/21/25 20:19 Blood Pressure 130/81 01/21/25 20:19 Pulse Oximetry 96 01/21/25 20:19 Oxygen Delivery Method Room Air 01/21/25 20:19 Temperature 99.8 F H 01/21/25 20:19 Pulse Rate 92 01/21/25 20:19 Respiratory Rate 16 01/21/25 20:19 Blood Pressure 130/81 01/21/25 20:19 Pulse Oximetry 96 01/21/25 20:19 Oxygen Delivery Method Room Air 01/21/25 20:19 Medical Decision Making MDM Narrative Medical decision making narrative: This patient comes in with report of fever and states she is feeling better currently. Nasal pharyngeal swab returns negative for viruses tested. Urinalysis does show evidence of infection. The patient is taking cephalexin prophylactically because of recurrent infections. She reports allergy to Cipro and states that her doctor does not want her to take sulfa drug because she is on sotalol. The patient did receive an intramuscular injection of Rocephin 1 g and I provided prescription for doxycycline. She is okay to be discharged home. Lab Data Labs: Lab Results 01/21/25 01/21/25 Range/Units 20:23 20:31 Urine Color Yellow (Yellow) Urine Appearance Clear (Clear) Urine pH 5.5 (5.0-8.5) Ur Specific [place] 1.020 (1.000-1.030) Urine Protein Negative (Negative) Urine Glucose (UA) Negative (Negative) Urine Ketones Negative (Negative) Urine Blood Trace-lysed A (Negative) Urine Nitrite Negative (Negative) Urine Bilirubin Negative (Negative) Urine Urobilinogen 0.2 (0.2-1.0) Ur Leukocyte Esterase 1+ A (Negative) Urine RBC 0-2 (0-2) Urine WBC 10-25 A (0-5) Ur Squamous Epith Cells None (None-Few) Urine Bacteria Few A (None) SARS-CoV-2 (PCR) Negative SARS-CoV-2 (Negative) Influenza Type A (PCR) Negative PCR FLU A (Negative) Influenza Type B (PCR) Negative PCR FLU B (Negative) RSV (PCR) Negative PCR RSV (Negative) Discharge Plan Discharge Clinical Impression: Urinary tract infection Patient Disposition: Home, Self-Care Condition: Stable Additional Instructions: Take medication as prescribed. Follow up with MD return of symptoms are persistent or worsening. Prescriptions: No Action clopidogrel 75 mg tablet 75 mg PO DAILY ergocalciferol (vitamin D2) 10 mcg (400 unit) tablet 2,000 unit PO DAILY sotalol 80 mg tablet 40 mg PO BID multivitamin [Multiple Vitamins] Tablet 1 tab PO QDAY acetaminophen 650 mg tablet extended release 650 mg PO Q8H PRN cholestyramine-aspartame 4 gram powder in packet See Rx Instructions PO DAILY Rx Instructions: 4 Grams PO daily; lisinopril-hydrochlorothiazide 20-25 mg tablet 1 tab PO DAILY omeprazole 20 mg capsule,delayed release(DR/EC) 20 mg PO DAILY atorvastatin 10 mg tablet 10 mg PO .Bedtime tramadol 50 mg tablet 50 mg PO Q6-8H PRN cephalexin 250 mg capsule PO potassium chloride 10 mEq tablet extended release 10 meq PO DAILY Follow Up/Referrals: Marla Christianson MD [Primary Care Provider] - Stand Alone Forms: [email or web address] Info Instructions
[2025-01-21 20:40] LABS: Appearance Urine Clear (Clear); Bilirubin Urine Negative (Negative); Blood Urine Trace-lysed (Negative); Color Urine Yellow (Yellow); Glucose Urine Negative (Negative); Ketones Urine Negative (Negative); Leukocyte Esterase Urine 1+ (Negative); Nitrite Urine Negative (Negative); Protein Urine Negative (Negative); Urobilinogen Urine 0.2 (0.2-1.0); pH Urine 5.5 (5.0-8.5)
[2025-01-21 21:08] LABS: Bacteria Urine Few; RBC Urine 0-2 (0-2)
[2025-01-21 21:16] LABS: PCR FLU A Negative PCR FLU A (Negative); PCR FLU B Negative PCR FLU B (Negative); PCR RSV Negative PCR RSV (Negative); SARS PCR* Negative SARS-CoV-2 (Negative)
--- OUTSIDE RECORDS SUMMARY | 2025-01-21 21:38 | XMS_ITS | Clinical Summary ---
Author Organization [employer] [facility] [employer] [facility] Address [address] [place] [id number] Care Team Providers Care Pain Management Nurse Name Role Phone Marla Christianson MD Primary Care Provider [phone] Allergies Active Allergy Reactions Criticality Noted Date [...] once daily. 14 Tablet 4 5:26 PM [employer] SUPERVISOR 11/12/19 24 Active potassium chloride (K-TAB) 10 [...] Department Care Team Description 12/15/2024 10:00 AM [employer] SUPERVISOR Ancillary Procedure [facility] [address] [place] [address] 12/15/2024 Travel 11/23/[address] [address] [place], [facility] Support Specialist Plan (referral for Pain Consult.) 11/23/2024 Telephone [facility] [address] [facility] [address] Marla Christianson MD Questions (Spine appointment ) 11/08/2024 Refill [facility] [address] [facility] [place] [address] Marla Christianson MD Refill Request (Omeprazole) 10/27/2024 9:10 AM [employer] SUPERVISOR Office Visit [facility] [address] [place] [address] Marla Christianson MD Medicare ANNUAL (subsequent) Visit (79 year old) 10/27/2024 Travel from Last 3 Months Immunizations Immunization Administration Dates Next Due COVID-19 VACCINE SPIKEVAX (M ODERNA 50MCG/0.5ML) 12YO+ PFS 10/27/2024,10/14/2023 COVID-19 vaccine ([employer] NTech 30mcg/0.3mL) 12YO+ BIVALENT PF, MDV 07/09/2022 COVID-19 vaccine ([employer]ech 30mcg/0.3mL) PF, MDV 12/22/2020,12/01/2020 Influenza Virus, [...] on file Legal Sex Female 6:28 AM [employer] SUPERVISOR Gender Identity Not on file Sexual Orientation [...] Comments Blood Pressure 122/62 10/27/2024 10:14 AM [employer] SUPERVISOR Pulse 61 10/27/2024 9:27 AM [employer] SUPERVISOR Temperature 36.6 C (97.8 F) 11/12/2023 8:50 AM [employer] SUPERVISOR Respiratory Rate 16 01/07/2024 10:14 AM CDT Oxygen Saturation 100% 10/27/2024 9:27 AM [employer] SUPERVISOR Inhaled Oxygen Concentration - - Weight 71.9 kg (158 lb 9.6 oz) 10/27/2024 9:27 A M [employer] SUPERVISOR Height 150.3 cm (4' 11.17) 10/27/2024 9:[address] Body Mass Index 31.85 10/27/2024 9:27 AM [employer] SUPERVISOR Plan of Treatment Health Maintenance Due Date [...] 09/28/2024, 03/29/2015 Medical Devices Implanted Type Area Park Manager Device Identifier Shelf Expiration Date Model / Serial / Lot Sling Pelvic Altis Sis Continence - [id number] Implanted:Qty: 1 on 11/12/2023 by Jason Joy MD at [facility] N/A: Vagina [employer] 05/04/2026 [id number] / / [id number] Procedures Procedure Name Priority Date/Time Associated Diagnosis Comments XR MAMMO DENISE BILAT SCREEN Routine 12/15/2024 10:27 AM [employer] SUPERVISOR Visit for screening mammogram COMP METABOLIC PANEL Routine 10/27/2024 10:29 AM [employer] SUPERVISOR HTN (hypertension) SVT (supraventricular tachycardia) (HC) LIPID PANEL W REFLEX MEASURED LDL Routine 10/27/2024 10:29 AM [employer] SUPERVISOR Hyperlipidemia, unspecified hyperlipidemia type XR DXA BONE DENSITY 2 SITES AXIAL Routine 02/22/2024 9:15 AM CDT Osteopenia, unspecified location from Last 3 Months or Most Recently Relevant to Health Maintenance Results * XR MAMMO DENISE BILAT SCREEN (12/15/2024 10:27 AM [employer] SUPERVISOR) Anatomical Region Laterality Modality BREASTS, Breast Left, Breast Right Bilateral Mammography Impressions 12/15/2024 3:34 PM [employer] SUPERVISOR There is no radiographic evidence for malignancy. Recommend annual mammograms. MAMMOGRAM ASSESSMENT: ACR 1 Negative PATIENTS: You will also receive a letter with your examination results in an easy to read format. If you have questions about your results, please contact your referring provider. Narrative 12/15/2024 3:34 PM [employer] SUPERVISOR For Patients: As a result of the Century Cures Act, medical imaging exams and procedure reports are released immediately into your electronic medical record. You may view this report before your referring provider. If you have questions, please contact your health care provider. XR MAMMO DENISE BILAT SCREEN [[id number]] CLINICAL HISTORY: This is an asymptomatic 79 [...] W REFLEX MEASURED LDL (10/27/2024 10:29 AM [employer] SUPERVISOR) CHOLESTEROL, TOTAL 160 <200 mg/dL [facility] [...] LDL-C. Benji SS et al. FARRAH. 2013;310(19): 7130-3790 (http://education.[employer]/faq/UIM133) CHOL/HDLC RATIO 3.1 <5.0 (calc) [facility] NON HDL CHOLESTEROL 109 <130 mg/dL (calc) [facility] Comment: For patients with diabetes plus 1 major ASCVD risk factor, treating to a non-HDL-C goal of <100 mg/dL (LDL-C of <70 mg/dL) is considered a therapeutic option. Blood BLOOD SPECIMEN / Unknown 10/27/2024 10:29 AM [employer] SUPERVISOR 10/27/2024 10:29 AM [employer] SUPERVISOR us Marla Christianson MD CHEMISTRY Final Resul t [facility] [address] [place] [address], [facility] [address] [place] [address] * (ABNORMAL) COMP METABOLIC PANEL (10/27/2024 10:29 AM [employer] SUPERVISOR) Pathologist [facility] GLUCOSE 80 65 - 99 mg/dL [facility] Comment: Fasting reference interval UREA [...] BLOOD SPECIMEN / Unknown 10/27/2024 10:29 AM [employer] SUPERVISOR 10/27/2024 10:29 AM [employer] SUPERVISOR Marla Christianson MD CHEMISTRY Final Resul t [facility] [address] [place] [address], [facility] [address] [place] [address] * (ABNORMAL) XR DXA BONE DENSITY 2 [...] to assess therapeutic efficacy. Crystal Baltazar PA-C [facility] 03/01/2024 Narrative 03/01/2024 1:47 PM CDT For Patients: Results are automatically released to your [facility] ([employer]) account once available, in compliance with federal regulations. This means that you may see your results before your provider has had a chance to review them. Please allow 2-3 business days for your provider to comment on the results. XR DXA Bone Mineral Density (BMD) EXAM LOCATION: [address] [address] PATIENT NAME: Claudia Rhodes DATE OF : [...] two scanners are made by the same generator mechanic. PROCEDURE: Dual-energy x-ray absorptiometry performed with routine [...] HB ONLY MEDICARE PART A HB ONLY [facility] MEDICARE PB ONLY Advance Directives Documents on File Type Date Recorded Patient Curing Oven Tender Expl anation Healthcare Directive 01/02/2014 12:00 AM [...] 6:05 AM 01/03/2014 1:53 PM Care Teams Pain Management Nurse Relationship Specialty Start Date End Date Marla Christianson MD [address] [place] [address] PCP - General Family Practice 07/28/17
[2025-01-21] MEDS: LIDOCAINE 1% 5 ml (pf) 5 ML VIAL 2.1 ML IM (21:44)
[2025-01-21] MEDS: cefTRIAXone 1 GM VIAL IM (21:44)
== END 2025-01-21 22:02 | disposition home or self-care (01) ==
PROVIDERS: Student in an Organized Health Care Education/Training Program; Emergency Provider Emergency Medicine Emergency Medical Services; PCP Family Medicine
DX: N39.0 Urinary tract infection, site not specified (principal)
CPT/HCPCS: 81001; 87086; 87631; 96372; 99284; J0696

== ENCOUNTER 2025-03-30 17:40 | Emergency (ER) | payer MEDICARE, BC, SELFPAY ==
--- OUTSIDE RECORDS SUMMARY | 2023-05-22 05:02 | XMS_ITS | Continuity of Care Document ---
Author Organization [facility] Address [address] [address] [place] [address] Phone Care Team Providers Care Reprographics Technician Name Role Phone Eva CASTRO, Brigid Unavailable [...] Diagnoses Date Provider Providers Copied on Encounter [facility], [address] [address], [place], [place], [address], tel:[phone] [facility] No Information 3 Eva Rainey. [address], [id number], [place]. tel:[phone] [facility], [address] [address], [place], [place], [address], [place] tel:[phone] [facility] No Information 1 Eva Rainey. [address], [id number], [place]. tel:[phone] Deshaun Vazquez MD. tel:[phone] Telephone E&M II 11-20 Min LUDMILA [facility], [address] [address], [place], [place], [address], [place] tel:[phone] [facility] GI Symptoms or Concerns (chief complaint) Gastroparesis Constipation, unspecified constipation type 1 Eva Rainey. 3001 [facility], [facility] 500, [place], [place], [address], [place]. tel:[phone] Deshaun Vazquez MD. tel:[phone] ring Provider: Referral Self, USE FOR SELF REFERRALS. [facility], [address] [address], [place], [address], [place] tel:[phone] [facility] No Information 1 No Information Init Hosp-da E&m Mod Severity [facility], [address] [address], [facility] [place], [address], [place] tel:[phone] [facility] No Information 1 No Information Referring Provider: Medhat Latham, [address] [place], [address]. tel:[phone] [facility], [address] [address], [place], [address], [place] tel:[phone] [facility] No Information 1 Derrick Pappas. 3001 [facility], [address], [id number], [place]. tel:[phone] Offic/outpt E&m Estab Mod-hi 2 [facility], [address] [address], [facility] [place], [address], [place] tel:[phone] [facility] Diarrhea (chief complaint) DiarrheaFlatu l/eructat/gas Pain Dec-0 2-201 0 No Information Offic/outpt E&m Estab Minor 10 [facility], [address] [address], [place], [address], [place] tel:[phone] [facility] Iron Deficiency Anemia (chief complaint) Small Bowell ObstructionIr on Deficiency Anemia Feb-0 3-200 9 Harris Masterson. [address], [id number], [place]. tel:[phone] Referring Provider: Ab Iglesias MD, [address] [place], [address]. [phone] [facility], [address] [address], [place], [address], [place] tel:[phone] [facility] GI BleedIron Deficiency Anemia 9 No Information Referring Provider: Ab Iglesias MD, [address] [place] [address], [place], [address]. [phone] [facility], [address] [address], [place], [address], [place] tel:[phone] [facility] Iron Deficiency Anemia 9 Iván Florez. [address] [place] [address], [address], [id number], [place]. tel:[phone] Referring Provider: Ab Iglesias MD, [address] [place] [address], [address]. tel:[phone] Offic Cons New/estab Mod 40 Mi [facility], [address] [address], [place], [id number], [place] tel:[phone] [facility] Anemia (chief complaint) Iron Deficiency Anemia 9 Harris Masterson. [address] [place] [address], [facility] [address], [place], [place], [address], [place]. tel:[phone] Subsqt Hosp-da E&m Minr Compl [facility], [address] [address], [place], [id number], [place] tel:[phone] [facility] No Information 8 No Information Init Inpt Cons New/est Mod-hi [facility], [address] [address], [place], [id number], [place] tel:[phone] [facility] No Information 8 No Information Family History [...] Registry Payers Payer name Insurance type Covered green party ID Authoriza tion(s) Medicare NGS MB [id number] [facility] Medicare Supplement BL [id number] Social History Type Description Quantity Date Captured Comments Alcohol Use Details Unknown Caffeine Use Details Unknown Tobacco Use Status No Information Smoking Status No Information Sex Female Chief Complaint And Reason For Visit No Information Reason For Referral Reason For Referral No Information Plan Of Treatment Date Type Action Status Referral Ordered: BMP Appointment date/timeframe: 08/21/2021 ordered Referral Ordered: Thyroid [place] Profile Appointment date/timeframe: 08/19/2021 ordered Referral Ordered: [...]
--- OUTSIDE RECORDS SUMMARY | 2023-05-22 05:02 | XMS_ITS | Continuity of Care Document ---
Author Organization [facility] Address [address] [address] [place] [address] Phone Care Team Providers Care Electron Beam Welder Setter Name Role Phone Eva CASTRO, Brigid Unavailable [...] Diagnoses Date Provider Providers Copied on Encounter [facility], [address] [address], [place], [place], [address], tel:[phone] [facility] No Information 3 Eva Rainey. [address], [id number], [place]. tel:[phone] [facility], [address] [address], [place], [place], [address], [place] tel:[phone] [facility] No Information 1 Eva Rainey. [address], [id number], [place]. tel:[phone] Deshaun Vazquez MD. tel:[phone] Telephone E&M II 11-20 Min LUDMILA [facility], [address] [address], [place], [place], [address], [place] tel:[phone] [facility] GI Symptoms or Concerns (chief complaint) Gastroparesis Constipation, unspecified constipation type 1 Eva Rainey. 3001 [facility], [facility] 500, [place], [place], [address], [place]. tel:[phone] Deshaun Vazquez MD. tel:[phone] ring Provider: Referral Self, USE FOR SELF REFERRALS. [facility], [address] [address], [place], [address], [place] tel:[phone] [facility] No Information 1 No Information Init Hosp-da E&m Mod Severity [facility], [address] [address], [facility] [place], [address], [place] tel:[phone] [facility] No Information 1 No Information Referring Provider: Medhat Latham, [address] [place], [address]. tel:[phone] [facility], [address] [address], [place], [address], [place] tel:[phone] [facility] No Information 1 Derrick Pappas. 3001 [facility], [address], [id number], [place]. tel:[phone] Offic/outpt E&m Estab Mod-hi 2 [facility], [address] [address], [facility] [place], [address], [place] tel:[phone] [facility] Diarrhea (chief complaint) DiarrheaFlatu l/eructat/gas Pain Dec-0 2-201 0 No Information Offic/outpt E&m Estab Minor 10 [facility], [address] [address], [place], [address], [place] tel:[phone] [facility] Iron Deficiency Anemia (chief complaint) Small Bowell ObstructionIr on Deficiency Anemia Feb-0 3-200 9 Harris Masterson. [address], [id number], [place]. tel:[phone] Referring Provider: Ab Iglesias MD, [address] [place], [address]. [phone] [facility], [address] [address], [place], [id number], [place] tel:[phone] [facility] GI BleedIron Deficiency Anemia 9 No Information Referring Provider: Ab Iglesias MD, [address] [place] [address], [place], [address]. [phone] [facility], [address] [address], [place], [address], [place] tel:[phone] [facility] Iron Deficiency Anemia 9 Iván Florez. [address] [place] [address], [address], [id number], [place]. tel:[phone] Referring Provider: Ab Iglesias MD, [address] [place] [address], [address]. tel:[phone] Offic Cons New/estab Mod 40 Mi [facility], [address] [address], [place], [address], [place] tel:[phone] [facility] Anemia (chief complaint) Iron Deficiency Anemia 9 Harris Masterson. [address] [place] [address], [facility] 500, [place], [place], [address], [place]. tel:[phone] Subsqt Hosp-da E&m Minr Compl [facility], [address] [address], [place], [address], [place] tel:[phone] [facility] No Information 8 No Information Init Inpt Cons New/est Mod-hi [facility], [address] [address], [place], [address], [place] tel:[phone] [facility] No Information 8 No Information Family [...] Registry Payers Payer name Insurance type Covered democrat ID Authoriza tion(s) Medicare NGS MB [id number] [facility] Medicare Supplement BL [id number] Social History Type Description Quantity Date Captured Comments Alcohol Use Details Unknown Caffeine Use Details Unknown Tobacco Use Status No Information Smoking Status No Information Sex Female Chief Complaint And Reason For Visit No Information Reason For Referral Reason For Referral No Information Plan Of Treatment Date Type Action Status Referral Ordered: BMP Appointment date/timeframe: 08/21/2021 ordered Referral Ordered: Thyroid Benedict Profile Appointment date/timeframe: 08/19/2021 ordered Referral Ordered: [...]
--- OUTSIDE RECORDS SUMMARY | 2025-03-09 05:30 | XMS_ITS | Continuity of Care Document ---
Author Organization [facility] Address [address] [place] [address] Phone Care Team Providers Care Heater Operator Helper Name Role Phone Amber CASTRO, Jamar Unavailable Unavailabl e Allergies, Adverse Reactions, Alerts Substance Reaction Status Criticality NSAIDS (Non-Steroidal Anti-Inflammatory Drug) Nausea And VomitingGI Bleeding Active High morphine Nausea And VomitingDizziness Active High oxycodone Nausea And VomitingDizziness Active High HYDROCODONE BITARTRATE Nausea And VomitingDizziness Ac tive High acetaminophen Nausea And VomitingDizziness Active High codeine Nausea And VomitingDizziness Active High meperidine Nausea And VomitingDizziness Active High ciprofloxacin Palpitations Active High trimethoprim Other - Describe In Comment Field Active No Information sulfamethoxazole Other - Describe In Comment Field Active No Information hydrocodone Nausea And Vomiting Active High Medications Medication Instructions Dosage Effective Dates (start - stop) Status Comments omeprazole 20 mg capsule,delayed release TAKE 1 CAPSULE BY MOUTH ONCE DAILY BEFORE A MEAL - Active atorvastatin 10 mg tablet Take 1 Tablet (10 mg) by mouth once daily. - Active cephalexin 250 mg capsule TAKE 1 CAPSULE BY MOUTH ONCE DAILY FOR UTI PROPHYLAXIS - Active Cholestyramine Light 4 gram oral powder Mix 2 g in liquid then take by mouth before breakfast. - Active clopidogrel 75 mg tablet Take 1 Tablet (75 mg) by mouth once daily in the morning. - Active lisinopril 20 mg-hydrochlorothiazide 25 mg tablet Take 1 Tablet by mouth once daily. Elver-16-2025 - Active tramadol 50 mg tablet Take 0.5-1 Tablets (25-50 mg) by mouth every 8 hours if needed for Pain. - Active sotalol 80 mg tablet TAKE 1 TABLET BY MO UTH IN THE MORNING AND 1/2 (ONE-HALF) IN THE EVENING - Active potassium chloride ER 10 mEq tablet,extended release TAKE 1 TABLET BY MOUTH ONCE DAILY WITH A MEAL - Active Senna-S 8.6 mg-50 mg tablet Take 1 Tablet by mouth once daily. - Active loratadine 10 mg tablet Take 1 Tablet (1 0 mg) by mouth once daily. - Active fluticasone propionate 50 mcg/actuation nasal spray,suspension USE ONCE DAILY AT BEDTIME (USE 2 SPRAYS IN EACH NOSTRIL) - Active calcium 200 mg (as calcium carbonate 500 mg) chewable tablet Chew 1 Tablet (500 mg) by mouth 3 times daily with meals. - Active acetaminophen SR (TYLENOL ARTHRITIS) 650 mg extended release tablet Take 1 tablet by mouth every 8 hours if needed. Max acetaminophen dose: 4000mg in 24 hrs. - Active Tylenol PM Extra Strength 25 mg-500 mg tablet Take 1 tablet. by mouth at bedtime. Max acetaminophen dose: 4000mg in 24 hrs. - Active Procedures Procedure Date RF Lumbar Or Sacral Single Level 2024 RF Lumbar Sacral 2nd Level RF Lumbar Sacral 2nd Level OFFICE/OUTPATIENT VISIT, EST Facet Inj Lumbar Facet Inj Lumbar 2nd Lvl Facet Inj Lumbar Facet Inj Lumbar 2nd Lvl OFFICE/OUTPATIENT VISIT, EST OFFICE/OUTPATIENT VISIT, NEW Advance Directives Directive Yes / No Effective Date File Name No Information Encounters Encounter Description Practice Location Reason(s) For Visit Diagnoses Date Provider Providers Copied on Encounter [facility], [address], [place], [id number], [place] tel:[phone] [facility] Other spondylosis, lumbar region May-2 9-202 5 Yaccarino Vincent. [address], [address], [place], [place], [id number], [place]. tel:[phone] Referring Provider: Marla Christianson, [facility] [address] [place], [address]. tel:[phone] OFFICE/OUTPAT IENT VISIT, EST [facility], [address] [place] [address], [id number], [place] tel:[phone] [facility] Follow Up (chief complaint) Spinal stenosis, lumbar regionOther spondylosis, lumbar region 5 Yaccarino Vincent. [address], [address], [place], [place], [id number], [place]. tel:[phone] Referring Provider: Marla Christianson, [facility] [address] [place], [address]. tel:[phone] [facility], [address] [place] [address], [id number], [place] tel:[phone] [facility] Other spondylosis, lumbar region Apr- 5 Yaccarino Vincent. [address], [address], [place], [place], [id number], [place]. tel:[phone] [facility], [address] [place] [address], [id number], [place] tel:[phone] [facility] Other spondylosis, lumbar region Jan- 5 Yaccarino Vincent. [address], [address], [place], [place], [id number], [place]. tel:[phone] Referring Provider: Marla Christianson, [facility] [address] [place], [address]. tel:[phone] [facility], [address], [place], [id number], [place] tel:[phone] [facility] Other spondylosis, lumbar region Apr-1 - 5 Yaccarino Vincent. [address], [address], [place], [place], [id number], [place]. tel:[phone] [facility], [address] [place] [address], [id number], [place] tel:[phone] [facility] Other spondylosis, lumbar region Jan- 5 Yarose maryarino Jamar. [address], [address], [place], [id number], [place]. tel:[phone] Referring Provider: Marla Christianson, [facility] [address] [place], [address]. tel:[phone] OFFICE/OUTPAT IENT VISIT, [facility], [address] [place] [address], [id number], [place] tel:[phone] [facility] low back pain (chief complaint) Spinal stenosis, lumbar regionOther spondylosis, lumbar region Apr-0 5 Yaccarino Jamar. [address], [address], [place], [id number], [place]. tel:[phone] Referring Provider: Marla Christianson, [facility] [address] [place], [address]. tel:[phone] OFFICE/OUTPAT IENT VISIT, [facility], [address] [place] [address], [id number], [place] tel:[phone] [facility] low back pain (chief complaint) Other spondylosis, lumbar regionSpinal stenosis, lumbar region Mar- 5 Yaccarino Jamar. [address], [address], [place], [id number], [place]. tel:[phone] Referring Provider: Marla Christianson, [facility] [address] [place], [address]. tel:[phone] [facility], [address] [place] [address], [id number], [place] tel:[phone] [facility] No Information Amber Roldan. [address], [address], [place], [place], [id number], [place]. tel:[phone] Family History Family Member Type Diagnosis Age At Onset No Information Payers Payer name Insurance type Covered alliance party ID Authoranamaria murcia(s) Medicare MB [id number] Blue Cross Supplement BL [id number] Social History Type Description Quantity Date Captured Comments Sex Female Smoking Status No Information Chief Complaint And Reason For Visit No Information Reason For Referral Reason For Referral No Information Plan Of Treatment Date Type Action Status Goal Height. Due on d ue Goal Review Allergy List. Due on due Goal Tobacco Use. Due on due Goal PHQ-9. Due on du e Goal Zoster vaccine (2nd). Due on due Goal Zoster vaccine (). Due on due Goal Tobacco screening. Due on due Goal Unhealthy drug use screening . Due on due Goal Medication Reconciliation. D ue on due Goal Update Social History. Due o n due Goal Weight. Due on d ue Goal Height. Due on d ue Goal Zoster vaccine (1st). Due on due Goal Tobacco screening. Due on due Goal Medication Reconciliation. D ue on due Goal PHQ-9. Due on du e Goal Weight. Due on d ue Goal Unhealthy drug use screening . Due on due Goal Zoster vaccine (2nd). Due on due Goal Tobacco Use. Due on due Goal Update Social History. Due o n due Goal Review Allergy List. Due on due Goal PHQ-9. Due on du e Goal Medication Reconciliation. D ue on due Goal Weight. Due on d ue Goal Zoster vaccine (2nd). Due on due Goal Review Allergy List. Due on due Goal Height. Due on d ue Goal Tobacco Use. Due on due Goal Unhealthy drug use screening . Due on due Goal Update Social History. Due o n due Goal Zoster vaccine (). Due on due Goal Tobacco screening. Due on due Goal Unhealthy drug use screening . Due on due Goal Weight. Due on d ue Goal Medication Reconciliation. D ue on due Goal Zoster vaccine (2nd). Due on due Goal Zoster vaccine (1st). Due on due Goal Review Allergy List. Due on due Goal Tobacco Use. Due on due Goal PHQ-9. Due on du e Goal Height. Due on d ue Goal Update Social History. Due o n due Goal Tobacco screening. Due on Ma due Goal Zoster vaccine (1st). Due on due Goal Height. Due on d ue Goal Medication Reconciliation. D ue on due Goal PHQ-9. Due on du e Goal Unhealthy drug use screening . Due on due Goal Update Social History. Due o n due Goal Weight. Due on d ue Goal Review Allergy List. Due on due Goal Tobacco Use. Due on 025 due Appointment Claudia Rhodes BOOKED History Of Present Illness Encounter Date Complaint History Of Prese nt Illness falls risk assessment Comments: Claudia presents to the clinic for an initial follow up regarding chronic low back pain. Pain has been worse since LIEN, still similar in quality and location. Pain radiates down the RLE.S/p BL L3, L4, L5 nerve D-RFW on 01/20/25 w/ myself, reporting 85% relief. She also passed her C-RFW on 01/30/25 w/ myself, reporting 90% relief. Interested in following through with RFA. Most of today's visit was spent discussing the RFA and reviewing imaging w/ the pt. No other concerns today. Follow Up The location is back, Back and leg. The symptoms are described as aching, burning. Aggravating factors include bending backward, standing, walking. Relieving factors include bending forward, medication. Pain: severity (8/10). Symptoms are worsening. Denies having implanted device. Activities of daily living affected include: housework. Pain medication relief 50%. low back pain Severity level i s 9. The patient describes the pain as an ache and burning. Symptoms are aggravated by standing, walking, bending backwards, housework and social activities. Symptoms are relieved by sitting and medications. Comments: Claudia presents to the clinic for an initial follow up regarding chronic low back pain. Pain has been stable overall since LIEN. Pain still concentrated in the low back, worse on the R side, and radiates bilaterally across her back. Pain aggravated by extension. Now reports radiation down her lateral R thigh with walking/activity, and is generally absent with sitting/rest. Describes this pain as burning. Recently completed a lumbar MRI on 12/28/24 at [facility] and inquires about the results. No other concerns today. low back pain Severity level i s 7. It occurs intermittently. Symptoms are aggravated by sitting, standing, walking and bending backward. Symptoms are relieved by medications. Comments: This i s my first evaluation of the patient, referred by Marla Christianson MD from [facility]. Previous clinic notes, records, and imaging reviewed. Claudia is an 79 y/o female with a hx of OA here for initial consult regarding chronic low back pain. Pain began about 10 years ago without specific event/incident and has gradually worsened. Pain is concentrated in the R lumbosacral region. Endorses radiation down her anterolateral thigh, proximal to the knee. Also endorses occasional numbness in her R thigh and weakness of her RLE though she denies focal weakness. Reports that her pain builds with activity and is relieved somewhat by sitting down with (+) shopping cart sign though it takes some time after sitting to improve. Pain averages 7/10 and describes intermittent stabbing pains as well as constant aching pains. Pain is aggravated by prolonged standing, walking, vacuuming, and cooking, and laying down supine. Pain is relieved by medications.Has tried PT, chiropractic, and ice/heat without substantial improvement. She has had repeat ESIs and [place] with about 2 months of relief at a time. Seems to be L3, L4 and L5 TFESI but without records cannot confirm. Most recent JOSE GUADALUPE was in May. Has stopped receiving them as she was advised to look into other treatment options by her PCP. Has also followed with [facility] in the past. Was told that she is not a surgical candidate d/t her OA. Last lumbar MRI completed on 03/06/22 at [facility]. Her pain has continued to worsen/evolve since this time. She has tried Lyrica but d/c d/t lack of efficacy. She is currently managed on lidocaine patches, Tylenol prn, tramadol (prescribed by her PCP) prn with moderate benefit. Claudia is interested in pain management through [facility]. No other concerns today. Functional Status Date Functional Assessmen t No Information Instructions Date Instruction Additional Infor mation No Information Assessments Type Assessment Date No Information Patient Care Teams Name Effective Dates (start - stop) Status Members No Information
--- OUTSIDE RECORDS SUMMARY | 2025-03-09 05:30 | XMS_ITS | Continuity of Care Document ---
Author Organization [facility] enter Address [address] [place] [address] 11 [facility] [address] [place] [address] Phone Care Team Providers Care Hospital Attendant Name Role Phone [facility] Unavailable Unava ilable Procedures Procedure Date RF Lumbar Or Sacral Single Level 2024 RF Lumbar Or Sacral Single Level 2024 RF Lumbar Sacral 2nd Level RF Lumbar Sacral 2nd Level Facet Inj Lumbar Facet Inj Lumbar Facet Inj Lumbar 2nd Lvl Facet Inj Lumbar 2nd Lvl Facet Inj Lumbar Facet Inj Lumbar Facet Inj Lumbar 2nd Lvl Facet Inj Lumbar 2nd Lvl Advance Directives Directive Yes / No Effective Date File Name No Information Encounters Encounter Description Practice Location Reason(s) For Visit Diagnoses Date Provider Providers Copied on Encounter [facility], [address] [place] [address], [id number], [place] tel:[phone] [facility] No Information [facility]. [address] [place] [address], [id number], [place]. tel:[phone] Referring Provider: Jamar Clark, [facility] [address], [place], [address] . tel:[phone] [facility], [address] [place] [address] 11 [facility] [address], [place], [id number], [place] tel:[phone] [facility] No Information 5 [facility]. [address] [place] [address] 11 [facility] [address], [place], [id number], [place]. tel:[phone] Referring Provider: Jamar Clark, [address], [place], [address] . tel:[phone] [facility], [address] [place] [address] 11 [facility] [address], [place], [id number], tel:[phone] [facility] No Information [facility]. [address] [place] [address] 11 [facility] [address], [place], [id number], . tel:[phone] Referring Provider: Jamar Clark, [address], [place], [address] . tel:[phone] Family History Family Member Type Diagnosis Age At Onset No Information Payers Payer name Insurance type Covered alliance party ID Authoranamaria murcia(s) Medicare MB [id number] Blue Cross Supplement BL [id number] Social History Type Description Quantity Date Captured Comments Sex Female Smoking Status No Information Chief Complaint And Reason For Visit No Information Reason For Referral Reason For Referral No Information History Of Present Illness Encounter Date Complaint History Of Prese nt Illness No Information Functional Status Date Functional Assessmen t No Information Instructions Date Instruction Additional Infor mation No Information Assessments Type Assessment Date No Information Patient Care Teams Name Effective Dates (start - stop) Status Members No Information
--- OUTSIDE RECORDS SUMMARY | 2025-03-09 05:30 | XMS_ITS | Continuity of Care Document ---
Author Organization [facility] Address [address] [place] [address] Phone Care Team Providers Care Typing Pool Supervisor Name Role Phone Amber CASTRO, Jamar Unavailable [...] Diagnoses Date Provider Providers Copied on Encounter [facility], [address] [place], [place], [id number], [place] tel:[phone] [facility] Other spondylosis, lumbar region May-2 9-202 5 Yaccarino Vincent. [address], [address], [place], [place], [id number], [place]. tel:[phone] Referring Provider: Marla Christianson, [facility] [address] [place], [address]. tel:[phone] OFFICE/OUTPAT IENT VISIT, EST [facility], [address] [place] [address], [id number], [place] tel:[phone] [facility] Follow Up (chief complaint) Spinal stenosis, lumbar regionOther spondylosis, lumbar region 5 Yaccarino Vincent. [address], [address], [place], [place], [id number], [place]. tel:[phone] Referring Provider: Marla Christianson, [facility] [address] [place], [address]. tel:[phone] [facility], [address] [place] [address], [id number], [place] tel:[phone] [facility] Other spondylosis, lumbar region Apr- 5 Yaccarino Vincent. [address], [address], [place], [place], [id number], [place]. tel:[phone] [facility], [address] [place] [address], [id number], [place] tel:[phone] [facility] Other spondylosis, lumbar region Jan- 5 Yaccarino Vincent. [address], [address], [place], [place], [id number], [place]. tel:[phone] Referring Provider: Marla Christianson, [facility] [address] [place], [address]. tel:[phone] [facility], [address] [place] [address], [place], [id number], [place] tel:[phone] [facility] Other spondylosis, lumbar region Apr-1 - 5 Yaccarino Vincent. [address], [address], [place], [place], [id number], [place]. tel:[phone] [facility], [address] [place] [address], [id number], [place] tel:[phone] [facility] Other spondylosis, lumbar region Jan- 5 Yarose maryarino Jamar. [address], [address], [place], [id number], [place]. tel:[phone] Referring Provider: Marla Christianson, [facility] [address] [place], [address]. tel:[phone] OFFICE/OUTPAT IENT VISIT, [facility], [address] [place] [address], [id number], [place] tel:[phone] [facility] low back pain (chief complaint) Spinal stenosis, lumbar regionOther spondylosis, lumbar region Apr-0 5 Yaccarino Jamar. [address], [address], [place], [id number], [place]. tel:[phone] Referring Provider: Marla Christianson, [facility] [address] [place], [address]. tel:[phone] OFFICE/OUTPAT IENT VISIT, [facility], [address] [place] [address], [id number], [place] tel:[phone] [facility] low back pain (chief complaint) Other spondylosis, lumbar regionSpinal stenosis, lumbar region Mar- 5 Yaccarino Jamar. [address], [address], [place], [id number], [place]. tel:[phone] Referring Provider: Marla Chrsitianson, [facility] [address] [place], [address]. tel:[phone] [facility], [address] [place] [address], [id number], [place] tel:[phone] [facility] No Information Ambre Roldan. [address], [address], [place], [place], [id number], [place]. tel:[phone] Family History Family Member Type Diagnosis Age At Onset No Information Payers Payer name Insurance type Covered democrat ID Authoranamaria murcia(s) Medicare MB [id number] Blue Cross Supplement BL [id number] Social History Type Description Quantity Date Captured [...] Review Allergy List. Due on due Goal Unhealthy drug use screening . Due on due Goal Weight. Due on d ue Goal PHQ-9. Due on du e Goal Medication Reconciliation. D ue on due Goal Tobacco screening. Due on Ct due Goal Zoster vaccine (1st). Due on due Goal Height. Due on d ue Goal Weight. Due on d ue Goal Zoster vaccine (2nd). Due on due Goal Review Allergy List. Due on due Goal Height. Due on d ue Goal Tobacco Use. Due on due Goal Unhealthy drug use screening . Due on due Goal Update Social History. Due o n due Goal Zoster vaccine (1st). Due on due Goal Tobacco screening. Due on due Goal Medication Reconciliation. D ue on due Goal PHQ-9. Due on du e Goal Tobacco screening. Due on due Goal Update Social History. Due o n due Goal Height. Due on d ue Goal PHQ-9. Due on du e Goal Tobacco Use. Due on due Goal Review Allergy List. Due on due Goal Zoster vaccine (1st). Due on due Goal Zoster vaccine (2nd). Due on due Goal Medication Reconciliation. D ue on due Goal Weight. Due on d ue Goal Unhealthy drug use screening . Due on due Goal Zoster vaccine (1st). [...] Of Prese nt Illness falls risk assessment Follow Up The location is back, Back and leg. The symptoms are described as aching, burning. Aggravating factors include bending backward, standing, walking. Relieving factors include bending forward, medication. Pain: severity (8/10). Symptoms are worsening. Denies having implanted device. Activities of daily living affected include: housework. Pain medication relief 50%. Comments: Claudia presents to the clinic for [...] w/ the pt. No other concerns today. low back pain [...] completed a lumbar MRI on 12/28/24 at [facility] and inquires about the results. No other concerns today. low back pain Severity level i s 7. It occurs intermittently. Symptoms are aggravated by sitting, standing, walking and bending backward. Symptoms are relieved by medications. Comments: This i s my first evaluation of the patient, referred by Marla Christianson MD from [facility]. Previous clinic notes, records, and imaging reviewed. [...] improvement. She has had repeat ESIs and [place] with about 2 months of relief at [...] Last lumbar MRI completed on 03/06/22 at [facility]. Her pain has continued to worsen/evolve since [...]
--- OUTSIDE RECORDS SUMMARY | 2025-03-09 05:30 | XMS_ITS | Continuity of Care Document ---
Author Organization [facility] enter Address [address] [place] [address] 11 [facility] 110 [place] [address] Phone Care Team Providers Care Coal Gasification Technician Name Role Phone [facility] Unavailable Unava ilable Procedures Procedure Date [...] Diagnoses Date Provider Providers Copied on Encounter [facility], [address] [place] [address], [id number], [place] tel:[phone] [facility] No Information [facility]. [address] [place] [address], [id number], [place]. tel:[phone] Referring Provider: Jamar Clark, [facility] [address], [place], [address] . tel:[phone] [facility], [address] [place] [address] 11 [facility] [address], [place], [id number], [place] tel:[phone] [facility] [place] No Information 5 [facility]. [address] [place] [address] 11 [facility] [address], [place], [id number], [place]. tel:[phone] Referring Provider: Jamar Clark, [address], [place], [address] . tel:[phone] [facility], [address] [place] [address] 11 [facility] [address], [place], [id number], tel:[phone] [facility] No Information [facility]. [address] [place] [address] 11 [facility] [address], [place], [id number], . tel:[phone] Referring Provider: Jamar Clark, [address], [place], [address] . tel:[phone] Family History Family Member Type Diagnosis Age At Onset No Information Payers Payer name Insurance type Covered libertarian ID Authoranamaria murcia(s) Medicare MB [id number] Blue Cross Supplement BL [id number] Social History Type Description Quantity Date Captured [...]
--- OUTSIDE RECORDS SUMMARY | 2025-03-30 17:42 | XMS_ITS | Clinical Summary ---
Author Organization [facility] Address [address] [place] [address] Care Team Providers Care Functional Skills Tutor Name Role Phone Marla Christianson MD Primary Care Provider [phone] Allergies Active Allergy Reactions Criticality Noted Date [...] hen Nausea And Vomiting,Dizziness High 12/15/2013 Medications diphenhydrAMINE-a cetaminophen 25-500 mg (TYLENOL PM EXTRA STRENGTH) 25-500 mg tablet Take 1 tablet. by mouth at bedtime. Max acetaminophen dose: 4000mg in 24 hrs. 0 014 Active acetaminophen SR (TYLENOL ARTHRITIS) 650 mg extended release tablet Take 1 tablet by mouth every 8 hours if needed. Max acetaminophen dose: 4000mg in 24 hrs. 0 014 Active multivitamin (MVI) tablet Take 1 tablet by mouth once daily. 0 016 Active durable medical equipment (DME)Indications: Right lumbar radiculopathy Lumbar support brace. 1 Each 019 Active calcium carbonate (Tums) 200 mg calcium (500 mg) chewable tabletIndications :Osteoporosis, unspecified osteoporosis type, unspecified pathological fracture presence Chew 1 Tablet (500 mg) by mouth 3 times daily with meals. 0 021 Active fluticasone (50 mcg per actuation) nasal solution (FLONASE)Indicati ons:Sinus pressure USE ONCE DAILY AT BEDTIME (USE 2 SPRAYS IN EACH NOSTRIL) 16 g 023 Active cholecalciferol (Vitamin D-3) 400 unit tablet Take 1 Tablet (400 units) by mouth once daily. 023 Active loratadine (CLARITIN) 10 mg tabletIndications :Sinus pressure Take 1 Tablet (10 mg) by mouth once daily. 90 Tablet 3 024 Active sennosides-docusa te (SENOKOT S) (8.6-50 mg) tabletIndications :Female genital prolapse, unspecified type Take 1 Tablet by mouth once daily. 14 Tablet 11/12/19 24 5:26 PM FOOD TESTER 024 Active potassium chloride (K-TAB) 10 mEq extended-release tabletIndications :Hypokalemia TAKE 1 TABLET BY MOUTH ONCE DAILY WITH A MEAL 90 Tablet 3 024 Active traMADoL (ULTRAM) 50 mg tabletIndications :Spinal stenosis of lumbar region with neurogenic claudication Take 0.5-1 Tablets (25-50 mg) by mouth every 8 hours if needed for Pain. 30 Tablet 025 Active lisinopril-hydroc hlorothiazide, 20-25 mg, (PRINZIDE, ZESTORETIC) 20-25 mg per tabletIndications :HTN (hypertension) Take 1 Tablet by mouth once daily. 90 Tablet 3 025 Active clopidogreL (PLAVIX) 75 mg tabletIndications :TIA (transient ischemic attack),Other symptoms and signs involving the nervous system Take 1 Tablet (75 mg) by mouth once daily in the morning. 90 Tablet 3 025 Active cholestyramine-as partame (Cholestyramine Light) 4 gram powderIndications :Chronic constipation Mix 2 g in liquid then take by mouth before breakfast. 180 g 3 025 Active cephalexin 250 mg capsuleIndication s:Frequent urinary tract infections TAKE 1 CAPSULE BY MOUTH ONCE DAILY FOR UTI PROPHYLAXIS 90 Capsule 025 Active atorvastatin (LIPITOR) 10 mg tabletIndications :Hyperlipidemia, unspecified hyperlipidemia type Take 1 Tablet (10 mg) by mouth once daily. 90 Tablet 3 025 Active omeprazole (PRILOSEC) 20 mg Delayed-Release capsuleIndication s:Gastroesophagea l reflux disease, unspecified whether esophagitis present TAKE 1 CAPSULE BY MOUTH ONCE DAILY BEFORE A MEAL 90 Capsule 3 025 Active sotaloL 80 mg tabletIndications :SVT (supraventricular tachycardia) (HC) TAKE 1 TABLET BY MOUTH IN THE MORNING AND 1/2 (ONE-HALF) IN THE EVENING 135 Tablet 3 025 Active sotaloL (BETAPACE) 80 mg tabletIndications :SVT (supraventricular tachycardia) (HC) TAKE 1 TABLET BY MOUTH IN THE MORNING AND 1/2 (ONE-HALF) IN THE EVENING 135 Tablet 024 2024 Discontinued Active Problems Problem Noted Date Diagnosed Date [...] Encounters Date Type Department Care Team Description 03/30/2025 Refill [facility] [address] [place] [address] Marla Christianson MD Refill Request (Cephalexin) 03/30/2025 Refill [facility] [address] [place] [address] Chriss Mcarthur MD Refill Request (Sotalol) 02/02/2025 11:00 AM CDT Office [facility] [address] [place] [address] Ariel Maza MD 01/28/2025 Travel 01/26/2025 Telephone [facility] [address] [place] [address] Marla Christianson MD Medication Management from Last 3 Months Immunizations Immunization Administration Dates Next Due COVID-19 VACCINE SPIKEVAX (M ODERNA 50MCG/0.5ML) 12YO+ PFS 10/27/2024,10/14/2023 COVID-19 vaccine (Worlize-Bio NTech 30mcg/0.3mL) 12YO+ BIVALENT PF, MDV 07/09/2022 COVID-19 vaccine (Pfizer-Bio NTech 30mcg/0.3mL) PF, MDV 12/22/2020,12/01/2020 Influenza Virus, [...] on file Legal Sex Female 6:28 AM FOOD TESTER Gender Identity Not on file Sexual Orientation [...] Comments Blood Pressure 122/62 10/27/2024 10:14 AM FOOD TESTER Pulse 61 10/27/2024 9:27 AM FOOD TESTER Temperature 36.6 C (97.8 F) 11/12/2023 8:50 AM FOOD TESTER Respiratory Rate 16 01/07/2024 10:14 AM CDT Oxygen Saturation 100% 10/27/2024 9:27 AM FOOD TESTER Inhaled Oxygen Concentration - - Weight 71.9 kg (158 lb 9.6 oz) 10/27/2024 9:27 A M FOOD TESTER Height 150.3 cm (4' 11.17) 10/27/2024 9:[address] Body Mass Index 31.85 10/27/2024 9:27 AM FOOD TESTER Plan of Treatment Health Maintenance Due Date Last Done Comments COVID-19 vaccine series ( season) 2025 10/27/2024, 10/14/2023, 07/09/2022, Additional history exists BMI (ht and wt on same day) for age 18+ 10/27/2025 10/27/2024, 11/10/2023, 10/14/2023, Additional history exists Depression screening for age 12+ 10/27/2025 10/27/2024, 10/15/2023, 10/15/2023, Additional history exists Medicare Wellness for age 65+ 10/28/2025 10/27/2024, 10/14/2023, 07/09/2022, Additional history exists Tetanus booster [...] Additional history exists Tdap Completed 09/28/2024, 03/29/2015 Hepatitis B series for 19+ Aged Out N o longer eligible based on patient's age to complete this topic Medical Devices Implanted Type Area Baller Tender Device Identifier Shelf Expiration Date Model / Serial / Lot Sling Pelvic Altis Sis Continence - [id number] Implanted:Qty: 1 on 11/12/2023 by Jason Joy MD at [facility] N/A: Vagina [employer] 05/04/2026 [id number] / / [id number] Procedures Procedure Name Priority Date/Time Associated Diagnosis Comments XR DXA BONE DENSITY 2 SITES AXIAL Routine 02/22/2024 9:15 AM CDT Osteopenia, unspecified location from Last 3 Months or Most Recently Relevant to Health Maintenance Results * (ABNORMAL) XR DXA BONE DENSITY 2 [...] to assess therapeutic efficacy. Crystal Baltazar PA-C [facility] 03/01/2024 Narrative 03/01/2024 1:47 PM CDT For Patients: Results are automatically released to your [employer] ([employer]) account once available, in compliance with federal regulations. This means that you may see your results before your provider has had a chance to review them. Please allow 2-3 business days for your provider to comment on the results. XR DXA Bone Mineral Density (BMD) EXAM LOCATION: [facility] [address] [facility] [address] PATIENT NAME: Claudia Rhodes DATE OF : [...] two scanners are made by the same rfid manager. PROCEDURE: Dual-energy x-ray absorptiometry performed with routine [...] 18.7%. 10-year probability of hip fracture: 6.4%. 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
[2025-03-30 17:59] VITALS: BP 120/76; PULSE 63; RESP 16; TEMP 36.3; O2SAT 97; BMI 25.9
[2025-03-30 18:39] LABS: Appearance Urine Clear (Clear); Bilirubin Urine Negative (Negative); Blood Urine Negative (Negative); Color Urine Yellow (Yellow); Glucose Urine Negative (Negative); Ketones Urine Negative (Negative); Leukocyte Esterase Urine 1+ (Negative); Nitrite Urine Negative (Negative); Protein Urine Negative (Negative); Urobilinogen Urine 0.2 (0.2-1.0); pH Urine 5.5 (5.0-8.5)
--- NOTE | 2025-03-30 18:39 | ED.FEMALEGU ---
HPI - Female Genitourinary General Time Seen by Provider: 18:39 Date Seen: 03/30/25 Chief complaint: Urogenital Problems, Female Stated complaint: UTI Time Seen by Provider: 03/30/25 18:38 Source: patient, RN notes reviewed and old records reviewed Mode of arrival: ambulatory Limitations: no limitations History of Present Illness HPI Narrative: Claudia an 79-year-old female coming in with some dysuria and frequency, seems to be worsening. She has had a history of UTIs. She had some low back pain but also had an ablation done in her back, thought it was maybe more that. Her urine has turned 0 Cecile. She has had no fevers or chills, no nausea vomiting, no abdominal pain. She denies any vaginal discharge or symptoms. She states last time she was here in the ER she had to get a shot. Urine culture from January was negative. From 2022, she had E coli which was only sensitive to cefoxitin, ertapenem, imipenem, nitrofurantoin and Zosyn, intermediate resistance to tobramycin, otherwise resistant. 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 She does take Keflex daily prophylaxis. Patient is on sotalol and has an allergy to Cipro. MD elicited complaint: dysuria and UTI Related Data Home Medications ?Medication ?Instructions ?Recorded ?Confirmed acetaminophen 650 mg 650 mg PO Q8H PRN 04/17/22 02/02/25 tablet,extended release atorvastatin 10 mg tablet 10 mg PO .Bedtime 04/17/22 02/02/25 cholestyramine-aspartame 4 gram See Rx Instructions PO DAILY 04/17/22 02/02/25 oral powder for susp in a packet clopidogrel 75 mg tablet 75 mg PO DAILY 04/17/22 02/02/25 ergocalciferol (vitamin D2) 10 mcg 2,000 unit PO DAILY 04/17/22 02/02/25 (400 unit) tablet lisinopril 20 1 tab PO DAILY 04/17/22 02/02/25 mg-hydrochlorothiazide 25 mg tablet multivitamin (Multiple Vitamins 1 tab PO QDAY 04/17/22 02/02/25 tablet) omeprazole 20 mg capsule,delayed 20 mg PO DAILY 04/17/22 02/02/25 release sotalol 80 mg tablet 40 mg PO BID 04/17/22 02/02/25 tramadol 50 mg tablet 50 mg PO Q6-8H PRN 01/21/24 02/02/25 cephalexin 250 mg capsule mg PO 07/18/24 02/02/25 potassium chloride 10 mEq 10 meq PO DAILY 07/18/24 02/02/25 tablet,extended release Previous Rx's ?Medication ?Instructions ?Recorded nitrofurantoin 100 mg PO BID #13 caps 03/30/25 monohydrate/macrocrystals 100 mg capsule (Macrobid) Allergies Allergy/AdvReac Type Severity Reaction Status Date / Time codeine AdvReac Severe Nausea, Verified 03/30/25 17:59 vomiting, dizziness hydrocodone AdvReac Severe Nausea, Verified 03/30/25 17:59 vomiting, dizziness meperidine AdvReac Severe Nausea, Verified 03/30/25 17:59 vomiting, dizziness morphine AdvReac Severe Nausea, Verified 03/30/25 17:59 vomiting, dizzy NSAIDS (Non-Steroidal AdvReac Severe Nausea, Verified 03/30/25 17:59 Anti-Inflamma vomiting, dizziness ciprofloxacin AdvReac Mild Palpitation Verified 03/30/25 17:59 s oxycodone AdvReac Mild Nausea Verified 03/30/25 17:59 Review of Systems Narrative: As per HPI. [facility] Medical History Hypokalemia ?E87.6 - Hypokalemia (ICD-10) Lumbar degenerative disc disease ?M51.36 - Other intervertebral disc degeneration, lumbar region (ICD-10) 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 ?M18.0 - Bilateral primary osteoarthritis of first carpometacarpal joints (ICD-10) Urinary tract infection ?N39.0 - Urinary tract infection, site not specified (ICD-10) Squamous cell carcinoma in situ (SCCIS) ?D09.9 - Carcinoma in situ, unspecified (ICD-10) Recurrent urinary tract infection ?N39.0 - Urinary tract infection, site not specified (ICD-10) Premature atrial contraction ?I49.1 - Atrial premature depolarization (ICD-10) Pain of right lower extremity ?M79.604 - Pain in right leg (ICD-10) Nausea ?R11.0 - Nausea (ICD-10) History of supraventricular tachycardia ?Z86.79 - Personal history of other diseases of the circulatory system (ICD-10) Hiatal hernia ?K44.9 - Diaphragmatic hernia without obstruction or gangrene (ICD-10) Surgical History Osteoarthritis of carpometacarpal (CMC) joint of right thumb (09/21/19) ?M18.11 - Unilateral primary osteoarthritis of first carpometacarpal joint, right hand (ICD-10) History of total knee replacement (~2009) ?Z96.659 - Presence of unspecified artificial knee joint (ICD-10) History of total hysterectomy with bilateral salpingo-oophorectomy (BSO) (~1991) ?Z90.710 - Acquired absence of both cervix and uterus (ICD-10) ?Z90.722 - Acquired absence of ovaries, bilateral (ICD-10) ?Z90.79 - Acquired absence of other genital organ(s) (ICD-10) History of resection of small bowel (~1991) ?Z90.49 - Acquired absence of other specified parts of digestive tract (ICD-10) History of cholecystectomy (~2002) ?Z90.49 - Acquired absence of other specified parts of digestive tract (ICD-10) History of carpal tunnel release of both wrists ?Z98.890 - Other specified postprocedural states (ICD-10) History of bilateral cataract extraction (~2007) ?Z98.41 - Cataract extraction status, right eye (ICD-10) ?Z98.42 - Cataract extraction status, left eye (ICD-10) Family History Father FH: colonic polyps Leukemia Brother FH: colonic polyps Mother Coronary artery disease Hypercholesteremia High blood pressure Sister Breast cancer Social History Smoking Status: Never smoker Do you use any of these nicotine containing products: None Second hand tobacco smoke exposure: No How often do you have a drink containing alcohol: never AUDIT-C Alcohol total score: 0 Non-prescribed substance use: denies use service: No Exam Const: Vital Signs, click to edit/add: Vital Signs - 24 hr 03/30/25 17:59 03/30/25 19:40 Temperature 97.4 F L 97.5 F L Pulse Rate [Pulse Oximeter] 63 67 Respiratory Rate 16 18 Blood Pressure [Ri ght Upper Arm] 120/76 154/83 H Pulse Oximetry 97 98 Oxygen Delivery Me thod Room Air Room Air This 79-year-old female is alert, interactive, no apparent distress. She is lying in the bed in exam room 6, very pleasant, very well kept. Sclera clear, speech normal. CV regular rate and rhythm, no murmur, normal S1, normal S2. Abdomen is soft, nontender, nondistended, no organomegaly, rebound or guarding. Documenting provider has reviewed patient's vital signs: yes Course Course ED Course: Nursing staff had patient leave urinalysis, we are waiting results from lab. Patient understands I will be back once urinalysis has been completed by lab. Reevaluation(s) Time of Reevaluation #1: 19:37 Reevaluation #1: Have reviewed with patient that her urinalysis is not clearing we obvious for UTI. She feels like this is definitely symptomatic of 1 for her and feels like she is worsening. She has had a history of ESBL, certainly do not want to miss early opportunity to treat this patient. That culture showed sensitivity to Macrobid. I do think Macrobid would be reasonable to try while we await the urine culture. Will give a dose here tonight, send the rest to her pharmacy at her request. Vital Signs Vital signs: Initial Vital Signs Temperature 97.4 F L 03/30/25 17:59 Temperature Source Temporal Artery Scan 03/30/25 17:59 Pulse Rate 63 03/30/25 17:59 Pulse Rhythm Regular 03/30/25 17:59 Respiratory Rate 16 03/30/25 17:59 Blood Pressure 120/76 03/30/25 17:59 Blood Pressure Mean 90 03/30/25 17:59 Blood Pressure Position Sitting 03/30/25 17:59 Pulse Oximetry 97 03/30/25 17:59 Oxygen Delivery Method Room Air 03/30/25 17:59 Vital Signs Temperature 97.4 F L 03/30/25 17:59 Pulse Rate 63 03/30/25 17:59 Respiratory Rate 16 03/30/25 17:59 Blood Pressure 120/76 03/30/25 17:59 Pulse Oximetry 97 03/30/25 17:59 Oxygen Delivery Method Room Air 03/30/25 17:59 Temperature 97.5 F L 03/30/25 19:40 Pulse Rate 67 03/30/25 19:40 Respiratory Rate 18 03/30/25 19:40 Blood Pressure 154/83 H 03/30/25 19:40 Pulse Oximetry 98 03/30/25 19:40 Oxygen Delivery Method Room Air 03/30/25 19:40 Medications Administered Medications: Generic Name Dose Route Start Last Admin Trade Name Jw PRN Reason Stop Dose Admin Nitrofurantoin Macrocrystals 100 mg 03/30/25 19:40 03/30/25 20:05 Nitrofurantoin Monohyd Macro 100 Mg Capsule PO 03/30/25 19:41 100 mg ONCE ONE Administration MDM - Female Genitourinary Lab Data Attestation: I reviewed the patient's lab results. Labs: Lab Results 03/30/25 Range/Units 18:15 Urine Color Yellow (Yellow) Urine Appearance Clear (Clear) Urine pH 5.5 (5.0-8.5) Ur Specific Export 1.020 (1.000-1.030) Urine Protein Negative (Negative) Urine Glucose (UA) Negative (Negative) Urine Ketones Negative (Negative) Urine Blood Negative (Negative) Urine Nitrite Negative (Negative) Urine Bilirubin Negative (Negative) Urine Urobilinogen 0.2 (0.2-1.0) Ur Leukocyte Esterase 1+ A (Negative) Urine RBC 2-5 A (0-2) Urine WBC 2-5 (0-5) Ur Squamous Epith Cells Few (None-Few) Urine Bacteria Few A (None) Discharge Plan Discharge Clinical Impression: Dysuria Patient Disposition: Home, Self-Care Condition: Stable Instructions: Dysuria (ED), Urinary Tract Infection in Older Adults (ED) Additional Instructions: Next dose of antibiotics due tomorrow morning. Push fluids. If not improving on the antibiotic, have worsening or new concerning symptoms at any point, please seek re-evaluation. We have a urine culture pending, we will let you know if the urine culture would dictate any change of antibiotic. Activity Level: Activity as Tolerated Prescriptions: New nitrofurantoin monohyd/m-cryst [Macrobid] 100 mg capsule 100 mg PO BID Qty: 13 0RF Rx Instructions: must administer with a meal/food No Action clopidogrel 75 mg tablet 75 mg PO DAILY ergocalciferol (vitamin D2) 10 mcg (400 unit) tablet 2,000 unit PO DAILY sotalol 80 mg tablet 40 mg PO BID multivitamin [Multiple Vitamins] Tablet 1 tab PO QDAY acetaminophen 650 mg tablet extended release 650 mg PO Q8H PRN cholestyramine-aspartame 4 gram powder in packet See Rx Instructions PO DAILY Rx Instructions: 4 Grams PO daily; lisinopril-hydrochlorothiazide 20-25 mg tablet 1 tab PO DAILY omeprazole 20 mg capsule,delayed release(DR/EC) 20 mg PO DAILY atorvastatin 10 mg tablet 10 mg PO .Bedtime tramadol 50 mg tablet 50 mg PO Q6-8H PRN cephalexin 250 mg capsule PO potassium chloride 10 mEq tablet extended release 10 meq PO DAILY Follow Up/Referrals: Marla Christianson MD [Primary Care Provider, Family Practice] Stand Alone Forms: [facility] Info Instructions
[2025-03-30 19:24] LABS: Bacteria Urine Few; Squamous Epithelial Cell Urine Few (None-Few)
[2025-03-30 19:40] VITALS: BP 154/83; PULSE 67; RESP 18; TEMP 36.4; O2SAT 98
[2025-03-30] MEDS: NITROFURANTOIN MONOHYD MACRO 100 MG CAPSULE PO (20:05)
== END 2025-03-30 20:11 | disposition home or self-care (01) ==
LOC: ED 19:52
PROVIDERS: Emergency Provider Family Medicine; PCP Family Medicine
DX: R30.0 Dysuria (principal); M54.50 Low back pain, unspecified; Z79.899 Other long term (current) drug therapy
CPT/HCPCS: 81001; 87086; 99283; 99284; A9270

== ENCOUNTER 2025-04-28 15:46 | Outpatient (CLI) | payer MEDICARE, BC, SELFPAY | END 2025-04-28 15:47 | disposition home or self-care (01) | PROVIDERS: PCP Family Medicine; Visit Provider Internal Medicine | DX: R00.0 Tachycardia, unspecified (principal); R19.7 Diarrhea, unspecified; R53.83 Other fatigue | CPT/HCPCS: A0998 ==

== ENCOUNTER 2025-04-28 17:14 | Emergency (ER) | payer MEDICARE, BC, SELFPAY ==
--- OUTSIDE RECORDS SUMMARY | 2023-05-22 05:02 | XMS_ITS | Continuity of Care Document ---
Author Organization [facility] Address [address] [address] [place] [address] Phone Care Team Providers Care Water Safety Instructor Name Role Phone Eva CASTRO, Brigid Unavailable Unavailable Allergies, Adverse Reactions, Alerts Substance Reaction Status Criticality NARCOTIC ANTAGONIST Active No Infor mation NSAIDS (Non-Steroidal Anti-Inflammatory Drug) GI Bleed ing Active No Information morphine Nausea Active No Information codeine Nausea Active No Information Medications Medication Instructions Dosage Effective Dates (start - stop) Status Comments ondansetron HCl 4 mg tablet take 1 tablet by oral route every day as needed 4 MG - Active atorvastatin 10 mg tablet take 1 tablet by oral route every day 10 MG - Active sotalol 80 mg tablet take 0.5 tablet by oral route 2 times every day 40 MG - Active Tums 300 mg (750 mg) chewable tablet take 1 by oral route every day as needed 1 - Active VITAMIN D3 (unknown strength) take 1 tablet by oral route every day Not Available - Active Questran 4 gram Packet 1 packet in water or juice by mouth with first meal of the day - Active Tylenol Extra Strength 500 mg Tab as needed - Active Tab-A-Walter Tab Take one Tablet by mouth daily - Active hyoscyamine 0.125 mg Sublingual Tab Use as directed - Active Prilosec 20 mg Cap Take one tablet by mouth daily - Active lisinopril-hydrochlo rothiazide 20 mg-25 mg Tab Take 1 tablet by mouth daily - Active Procedures Procedure Date Telephone E&M II 11-20 Min LUDMILA Init Hosp-da E&m Mod Severity 1 Ugi Endo; W/bx 1/mx Offic/outpt E&m Estab Mod-hi 2 10 Routine Serum Collection G8447 Offic/outpt E&m Estab Minor 10 09 G8447 Small Intestinal Imaging Agile Patency Capsule Offic Cons New/estab Mod 40 Mi 09 G8447 Subsqt Hosp-da E&m Minr Compl 8 Init Inpt Cons New/est Mod-hi 8 Ugi Endo; W/bx /mx Colonoscopy Flex; Dx (jun Pro) 08 Advance Directives Directive Yes / No Effective Date File Name No Information Encounters Encounter Description Practice Location Reason(s) For Visit Diagnoses Date Provider Providers Copied on Encounter [facility], [address] [address], [place], [place], [id number], tel:[phone] [facility] No Information 3 Eva Rainey. [address], [id number], [place]. tel:[phone] [facility], [address] [address], [place], [place], [id number], [place] tel:[phone] [facility] No Information 1 Eva Rainey. [address], [id number], [place]. tel:[phone] Deshaun Vazquez MD. tel:[phone] Telephone E&M II 11-20 Min LUDMILA [facility], [address] [address], [place], [place], [address], [place] tel:[phone] [facility] GI Symptoms or Concerns (chief complaint) Gastroparesis Constipation, unspecified constipation type 1 Eva Rainey. 3001 [facility], [facility] [address], [place], [place], [address], [place]. tel:[phone] Deshaun Vazquez MD. tel:[phone] ring Provider: Referral Self, USE FOR SELF REFERRALS. [facility], [address] [address], [place], [address], [place] tel:[phone] [facility] No Information 1 No Information Init Hosp-da E&m Mod Severity [facility], [address] [address], [facility] [place], [address], [place] tel:[phone] [facility] No Information 1 No Information Referring Provider: Medhat Latham, [address] [place], [address]. tel:[phone] [facility], [address] [address], [place], [address], [place] tel:[phone] [facility] No Information 1 Derrick Pappas. [address] [facility], [address], [id number], [place]. tel:[phone] Offic/outpt E&m Estab Mod-hi 2 [facility], [address] [address], [facility] [place], [address], [place] tel:[phone] [facility] Diarrhea (chief complaint) DiarrheaFlatu l/eructat/gas Pain Dec-0 2-201 0 No Information Offic/outpt E&m Estab Minor 10 [facility], [address] [address], [place], [address], [place] tel:[phone] [facility] Iron Deficiency Anemia (chief complaint) Small Bowell ObstructionIr on Deficiency Anemia Feb-0 3-200 9 Harris Masterson. [address], [id number], [place]. tel:[phone] Referring Provider: Ab Iglesias MD, [address] [place], [address]. [phone] [facility], [address] [address], [place], [id number], [place] tel:[phone] [facility] GI BleedIron Deficiency Anemia 9 No Information Referring Provider: Ab Iglesias MD, [address] [place] [address], [place], [address]. [phone] [facility], [address] [address], [place], [address], [place] tel:[phone] [facility] Iron Deficiency Anemia 9 Iván Florez. [address] [place] [address], [address], [id number], [place]. tel:[phone] Referring Provider: Ab Iglesias MD, [address] [place] [address], [address]. tel:[phone] Offic Cons New/estab Mod 40 Mi [facility], [address] [address], [place], [id number], [place] tel:[phone] [facility] Anemia (chief complaint) Iron Deficiency Anemia 9 Harris Masterson. [address] [place] [address], [facility] [address], [place], [place], [address], [place]. tel:[phone] Subsqt Hosp-da E&m Minr Compl [facility], [address] [address], [place], [address], [place] tel:[phone] [facility] No Information 8 No Information Init Inpt Cons New/est Mod-hi [facility], [address] [address], [place], [id number], [place] tel:[phone] [facility] No Information 8 No Information Family History Family Member Type Diagnosis Age At Onset Sister Problem (finding) malignant neop lasm of breast in first degree relative Father Problem (finding) Leukemia (Cause Of Deat h) Father Problem (finding) First degree family history Problem (finding) No history of Ulcerative Colitis First degree family history Problem (finding) No history of Cancer, colon Father and brother Problem (finding) Colon Polyps 58 First degree family history Problem (finding) No history of Crohn's Immunizations Vaccine Date Status Comments SARS-COV-2 (COVID-19) vaccin e, mRNA, spike protein, LNP, preservative free, 30 mcg/0.3mL dose administered Note: [facility] bi-direct ional interface ; Source: Other Registry SARS-COV-2 (COVID-19) vaccin e, mRNA, spike protein, LNP, preservative free, 30 mcg/0.3mL dose administered Note: [facility] bi-direct ional interface ; Source: Other Registry SARS-COV-2 (COVID-19) vaccin e, mRNA, spike protein, LNP, preservative free, 30 mcg/0.3mL dose administered Note: [facility] bi-direct ional interface ; Source: Other Registry influenza, high-dose seasona l, quadrivalent, .7mL dose, preservative free administered Note: [facility] bi-direct ional interface ; Source: Other Registry influenza virus vaccine, unspecified formulation administered Note: [facility] bi-di rectional interface ; Source: Other Registry influenza, high dose seasona l, preservative-free administered Note: [facility] bi-direct ional interface ; Source: Other Registry zoster vaccine recombinant administered N ote: [facility] bi-directional interface ; Source: Other Registry zoster vaccine recombinant administered N ote: [facility] bi-directional interface ; Source: Other Registry influenza, high dose seasona l, preservative-free administered Note: [facility] bi-direct ional interface ; Source: Other Registry influenza, high dose seasona l, preservative-free administered Note: [facility] bi-direct ional interface ; Source: Other Registry Seasonal trivalent influenza vaccine, adjuvanted, preservative free administered Note: [facility] bi-direct ional interface ; Source: Other Registry influenza, high dose seasona l, preservative-free administered Note: [facility] bi-direct ional interface ; Source: Other Registry influenza, high dose seasona l, preservative-free administered Note: [facility] bi-direct ional interface ; Source: Other Registry influenza, high dose seasona l, preservative-free administered Note: [facility] bi-direct ional interface ; Source: Other Registry Pneumovax 23 administered Note: [facility] bi-d irectional interface ; Source: Other Registry Prevnar administered Note: [facility] bi-d irectional interface ; Source: Other Registry tetanus toxoid, reduced diphtheria toxoid, and acellular pertussis vaccine, adsorbed administered Note: [facility] b i-directional interface ; Source: Other Registry zoster vaccine, live administered Note: [facility] bi-directional interface ; Source: Other Registry Prevnar administered Note: [facility] bi-d irectional interface ; Source: Other Registry Influenza, seasonal, injectable administe red Note: [facility] bi- directional interface ; Source: Other Registry tetanus and diphtheria toxoi ds, adsorbed, preservative free, for adult use (2 Lf of tetanus toxoid and 2 Lf of diphtheria toxoid) administered Note: [facility] bi-direct ional interface ; Source: Other Registry Payers Payer name Insurance type Covered constitution party ID Authoriza tion(s) Medicare NGS MB [id number] [facility] Medicare Supplement BL [id number] Social History Type Description Quantity Date Captured Comments Alcohol Use Details Unknown Caffeine Use Details Unknown Tobacco Use Status No Information Smoking Status No Information Sex Female Chief Complaint And Reason For Visit No Information Reason For Referral Reason For Referral No Information Plan Of Treatment Date Type Action Status Referral Ordered: BMP Appointment date/timeframe: 08/21/2021 ordered Referral Ordered: Thyroid [place] Profile Appointment date/timeframe: 08/19/2021 ordered Referral Ordered: Magnesium Appointment date/timeframe: 08/19/2021 ordered Referral Ordered: Free T4 Appointment date/timeframe: 08/19/2021 ordered Referral Ordered: TSH Appointment date/timeframe: 08/19/2021 ordered History Of Present Illness Encounter Date Complaint History Of Prese nt Illness GI Symptoms or Concerns This was a telephone visit with Ms. Claudia Rhodes. She consented to proceed with the telephone visit. She had her friend with her who also participated in the visit. We spoke for 20 minutes and I spent additional time reviewing her chart and coordinating her care.This is in regards to gastroparesis, nausea, early satiety, weight loss in the context of constipation. She says prior to April, she was doing really well. 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 She has been doing that for many years. With that, she used to have regular bowel movements every day, but starting in April, she started to experience constipation without any change in the dose of the cholestyramine or change in her medication or diet. She underwent an upper endoscopy, which was unremarkable including biopsies of the stomach. She then underwent gastric emptying study that revealed delayed gastric emptying with 23% of the food is still in the stomach at a 4-mark Functional Status Date Functional Assessmen t No Information Instructions Date Instruction Additional Infor axel 1. Treat constipatio n as below.2. I advised her to eat low-residual diet and small frequent meals.3. She will follow up with one of our dietitians to discuss gastroparesis diet in more detail. Related to Gastroparesis Assessments Type Assessment Date No Information Patient Care Teams Name Effective Dates (start - stop) Status Members No Information
--- OUTSIDE RECORDS SUMMARY | 2023-05-22 05:02 | XMS_ITS | Continuity of Care Document ---
Author Organization [facility] Address [address] [address] [place] [address] Phone Care Team Providers Care Roller Maker Name Role Phone Eva CASTRO, Brigid Unavailable [...] Diagnoses Date Provider Providers Copied on Encounter [facility], [address] [address], [place], [place], [id number], tel:[phone] [facility] No Information 3 Eva Rainey. [address], [id number], [place]. tel:[phone] [facility], [address] [address], [place], [place], [id number], [place] tel:[phone] [facility] No Information 1 Eva Rainey. [address], [id number], [place]. tel:[phone] Deshaun Vazquez MD. tel:[phone] Telephone E&M II 11-20 Min LUDMILA [facility], [address] [address], [place], [place], [id number], [place] tel:[phone] [facility] GI Symptoms or Concerns (chief complaint) Gastroparesis Constipation, unspecified constipation type 1 Eva Rainey. [address] [facility], [address], [place], [place], [id number], [place]. tel:[phone] Deshaun Vazquez MD. tel:[phone] ring Provider: Referral Self, USE FOR SELF REFERRALS. [facility], [address] [address], [place], [id number], [place] tel:[phone] [facility] No Information 1 No Information Init Hosp-da E&m Mod Severity [facility], [address] [address], [facility] [place], [id number], [place] tel:[phone] [facility] No Information 1 No Information Referring Provider: Medhat Latham, [address] [place], [address]. tel:[phone] [facility], [address] [address], [place], [place], [id number], [place] tel:[phone] [facility] No Information 1 Derrick Pappas. [address] [facility], [address], [id number], [place]. tel:[phone] Offic/outpt E&m Estab Mod-hi 2 [facility], [address] [address], [facility] [place], [id number], [place] tel:[phone] [facility] Diarrhea (chief complaint) DiarrheaFlatu l/eructat/gas Pain Dec-0 2-201 0 No Information Offic/outpt E&m Estab Minor 10 [facility], [address] [address], [place], [place], [id number], [place] tel:[phone] [facility] Iron Deficiency Anemia (chief complaint) Small Bowell ObstructionIr on Deficiency Anemia Feb-0 3-200 9 Harris Masterson. [address], [id number], [place]. tel:[phone] Referring Provider: Ab Iglesias MD, [address] [place], [address]. [phone] [facility], [address] [address], [place], [id number], [place] tel:[phone] [facility] GI BleedIron Deficiency Anemia 9 No Information Referring Provider: Ab Iglesias MD, [address] [place] [address] [address], [place], [address]. [phone] [facility], [address] [address], [place], [id number], [place] tel:[phone] [facility] Iron Deficiency Anemia 9 Iván Florez. [address] [place] [address], [address], [id number], [place]. tel:[phone] Referring Provider: Ab Iglesias MD, [address] [place] [address], [address]. tel:[phone] Offic Cons New/estab Mod 40 Mi [facility], [address] [address], [place], [id number], [place] tel:[phone] [facility] Anemia (chief complaint) Iron Deficiency Anemia 9 Harris Masterson. [address] [place] [address], [address], [place], [place], [id number], [place]. tel:[phone] [facility] Hosp-da E&m Minr Compl [facility], [address] [address], [place], [id number], [place] tel:[phone] [facility] No Information 8 No Information Init Inpt Cons New/est Mod-hi [facility], [address] [address], [place], [id number], [place] tel:[phone] [facility] No Information 8 No Information Family History [...] party ID Authoriza tion(s) Medicare NGS MB [id number] [facility] Medicare Supplement BL [id number] Social History Type Description Quantity Date Captured Comments Alcohol Use Details Unknown Caffeine Use Details Unknown Tobacco Use Status No Information Smoking Status No Information Sex Female Chief Complaint And Reason For Visit No Information Reason For Referral Reason For Referral No Information Plan Of Treatment Date Type Action Status Referral Ordered: BMP Appointment date/timeframe: 08/21/2021 ordered Referral Ordered: Thyroid [place] Profile Appointment date/timeframe: 08/19/2021 ordered Referral Ordered: [...]
--- OUTSIDE RECORDS SUMMARY | 2025-03-09 05:30 | XMS_ITS | Continuity of Care Document ---
Author Organization [facility] enter Address [address] [place] [address] 11 [facility] 110 [place] [address] Phone Care Team Providers Care Guide Domestic Tour Name Role Phone [facility] Unavailable Unava ilable Procedures Procedure Date RF [...] Diagnoses Date Provider Providers Copied on Encounter [facility], [address] [place] [address], [id number], [place] tel:[phone] [facility] No Information [facility]. [address] [place] [address], [id number], [place]. tel:[phone] Referring Provider: Jamar Clark, [facility] [address], [place], [address] . tel:[phone] [facility], [address] [place] [address] 11 [facility] [address], [place], [id number], [place] tel:[phone] [facility] [place] No Information 5 [facility]. [address] [place] [address] 11 [facility] [address], [place], [id number], [place]. tel:[phone] Referring Provider: Jamar Clark, [address], [place], [address] . tel:[phone] [facility], [address] [place] [address] 11 [facility] [address], [place], [id number], tel:[phone] [facility] No Information [facility]. [address] [place] [address] 11 [facility] [address], [place], [id number], . tel:[phone] Referring Provider: Jamar Clark, [address], [place], [address] . tel:[phone] Family History Family Member Type Diagnosis Age At Onset No Information Payers Payer name Insurance type Covered democrat ID Authoranamaria murcia(s) Medicare MB [id number] Blue Cross Supplement BL [id number] Social History Type Description Quantity Date Captured [...]
--- OUTSIDE RECORDS SUMMARY | 2025-03-09 05:30 | XMS_ITS | Continuity of Care Document ---
Author Organization [facility] enter Address [address] [place] [address] 11 [facility] 110 [place] [address] Phone Care Team Providers Care Bit And Shank Department Supervisor Name Role Phone [facility] Unavailable Unava ilable Procedures Procedure Date [...] Diagnoses Date Provider Providers Copied on Encounter [facility], [address] [place] [address], [id number], [place] tel:[phone] [facility] No Information [facility]. [address] [place] [address], [id number], [place]. tel:[phone] Referring Provider: Jamar Clark, [facility] [address], [place], [address] . tel:[phone] [facility], [address] [place] [address] 11 [facility] [address], [place], [id number], [place] tel:[phone] [facility] [place] No Information 5 [facility]. [address] [place] [address] 11 [facility] [address], [place], [id number], [place]. tel:[phone] Referring Provider: Jamar Clark, [address], [place], [address] . tel:[phone] [facility], [address] [place] [address] 11 [facility] [address], [place], [id number], tel:[phone] [facility] No Information [facility]. [address] [place] [address] 11 [facility] [address], [place], [id number], . tel:[phone] Referring Provider: Jamar Clark, [address], [place], [address] . tel:[phone] Family History Family Member Type Diagnosis Age At Onset No Information Payers Payer name Insurance type Covered alliance party ID Authoranamaria murcia(s) Medicare MB [id number] Blue Cross Supplement BL [id number] Social History Type Description Quantity Date Captured [...]
--- OUTSIDE RECORDS SUMMARY | 2025-04-19 06:20 | XMS_ITS | Continuity of Care Document ---
Author Organization [facility] domonique Address [address] [place] [address] Phone Care Team Providers Care Salt Operator Name Role Phone Amber CASTRO, Jamar Unavailable [...] Tablet by mouth once daily. - Active tramadol 50 mg tablet Take [...] 24 hrs. - Active Procedures Procedure Date OFFICE/OUTPATIENT VISIT, EST RF Lumbar Or Sacral Single Level 2024 [...] Diagnoses Date Provider Providers Copied on Encounter OFFICE/OUTPAT IENT VISIT, EST [facility], [address], [place], [id number], [place] tel:[phone] [facility] low back pain (chief complaint) Spinal stenosis, lumbar regionOther spondylosis, lumbar regionRadicul opathy, lumbar region Apr-0 5 Yaccarino Vincent. [address], [place], [id number], [place]. tel:[phone] Referring Provider: Marla Christianson, [facility] [address] [place], [address]. tel:[phone] [facility], [address] [place] [address], [id number], [place] tel:[phone] [facility] Other spondylosis, lumbar region 5 Yaccarino Vincent. [address], [address], [place], [id number], [place]. tel:[phone] Referring Provider: Marla Christianson, [facility] [address] [place], [address]. tel:[phone] OFFICE/OUTPAT IENT VISIT, EST [facility], [address] [place] [address], [id number], [place] tel:[phone] [facility] Follow Up (chief complaint) Spinal stenosis, lumbar regionOther spondylosis, lumbar region February- 5 Yaccarino Vincent. [address], [address], [place], [id number], [place]. tel:[phone] Referring Provider: Marla Christianson, [facility] [address] [place], [address]. tel:[phone] [facility], [address] [place] [address], [id number], [place] tel:[phone] [facility] Other spondylosis, lumbar region Jan- 5 Yaccarino Vincent. [address], [address], [place], [place], [id number], [place]. tel:[phone] [facility], [address] [place] [address], [id number], [place] tel:[phone] [facility] Other spondylosis, lumbar region Apr-2 5 Yaccarino Vincent. [address], [address], [place], [id number], [place]. tel:[phone] Referring Provider: Marla Christianson, [facility] [address] [place], [address]. tel:[phone] [facility], [address] [place] [address], [id number], [place] tel:[phone] [facility] Other spondylosis, lumbar region Apr-1 5 Yaccarino Vincent. [address], [address], [place], [id number], [place]. tel:[phone] [facility], [address] [place] [address], [id number], [place] tel:[phone] [facility] Other spondylosis, lumbar region Apr-1 5 Yaccarino Vincent. [address], [address], [place], [id number], [place]. tel:[phone] Referring Provider: Marla Christianson, [facility] [address] [place], [address]. tel:[phone] OFFICE/OUTPAT IENT VISIT, [facility], [address] [place] [address], [id number], [place] tel:[phone] [facility] low back pain (chief complaint) Spinal stenosis, lumbar regionOther spondylosis, lumbar region Apr-0 5 Yaccarino Vincent. [address], [address], [place], [id number], [place]. tel:[phone] Referring Provider: Marla Christianson, [facility] [address] [place], [address]. tel:[phone] OFFICE/OUTPAT IENT VISIT, [facility], [address], [place], [id number], [place] tel:[phone] [facility] [place] low back pain (chief complaint) Other spondylosis, lumbar regionSpinal stenosis, lumbar region 5 Amber Roldan. [address], [place], [place], [id number], [place]. tel:[phone] Referring Provider: Marla Christianson [facility] [address], [place], [address]. tel:[phone] [facility], [address], [place], [id number], [place] tel:[phone] [facility] No Information Amber Roldan. [address], [address], [place], [place], [id number], [place]. tel:[phone] Family History Family Member Type Diagnosis Age At Onset No Information Payers Payer name Insurance type Covered democrat ID Authorferna tirodolfo(s) Medicare MB [id number] Blue Cross Supplement BL [id number] Social History Type Description Quantity Date Captured Comments Alcohol Use Details Unknown Caffeine Use Details Unknown Tobacco Use Status No Information Smoking Status No Information Sex Female Vital Signs Date / Time: Height Weight BMI Pulse Rate Blood Pressure Temperature Respiratory Rate Body Surface Area Head Circumference Head Circ. Percentile Wt./Wiley. Percentile BMI percentile Pulse Ox Inhaled Ox 11:14 AM 60.00 in 70.851 kg (156.20 lbs) 30.5 1 kg/m eter (2) Chief Complaint And Reason For Visit From encounter dated '04/19/2025 11:20'. low back pain (chief complaint). Description: Duration: chronic. Reason For Referral Reason For Referral No Information Plan Of Treatment Date Type Action Status Goal Zoster vaccine (2nd). Due on due Goal Unhealthy drug use screening . Due on due Goal PHQ-9. Due on du e Goal Review Allergy List. Due on due Goal Medication Reconciliation. D ue on due Goal Tobacco screening. Due on due Goal Weight. Due on d ue Goal Update Social History. Due o n due Goal Zoster vaccine (1st). Due on due Goal Height. Due on d ue Goal Tobacco Use. Due on due Goal Height. Due on [...] on due Goal Tobacco screening. Due on Ak due Goal Medication Reconciliation. D ue on due Goal PHQ-9. Due on du e Goal Weight. Due on d ue Goal Unhealthy drug use screening . Due on due Goal Zoster vaccine (). Due on due Goal Tobacco Use. Due on due Goal Update Social History. Due o n due Goal Review Allergy List. Due on due Goal Tobacco screening. Due on due Goal Zoster vaccine (). Due on due Goal Update Social History. Due o n due Goal Unhealthy drug use screening . Due on due Goal Tobacco Use. Due on due Goal Height. Due on d ue Goal Review Allergy List. Due on due Goal Zoster vaccine (2nd). Due on due Goal Weight. Due on d ue Goal Medication Reconciliation. D ue on due Goal PHQ-9. Due on du e Goal Update Social History. Due o n due Goal Tobacco screening. Due on due Goal Height. Due on [...] Due on 025 due Appointment Claudia Rhodes #[id number] Transfor aminal JOSE GUADALUPE - Right L3-L4 BOOKED Appointment Claudia Rhodes BOOKED History Of Present Illness Encounter Date Complaint History Of Prese nt Illness low back pain Duration: chroni c. Comments: Claudia presents to the clinic for an initial follow up regarding chronic low back pain.S/p BL L3, L4, L5 nerve RFA on 03/09/25 w/ myself, reporting significant benefit. However, about 3 weeks after the procedure she noticed a new burning pain and numbness radiating from her R buttocks region to R anterior thigh. Sometimes has some tingling down to her toes. Has some benefit w/ Tylenol.Reports that she has experienced 2 UTIs since she started her RFWs in January. No other concerns today. falls risk assessment Follow Up The location [...] completed a lumbar MRI on 12/28/[address] [facility] and inquires about the results. No other concerns today. low back pain Severity level i s 7. It occurs intermittently. Symptoms are aggravated by sitting, standing, walking and bending backward. Symptoms are relieved by medications. Comments: This i s my first evaluation of the patient, referred by Marla Christianson MD from [facility]. Previous clinic notes, records, and imaging reviewed. [...] improvement. She has had repeat ESIs and [facility] with about 2 months of relief at [...] Last lumbar MRI completed on 03/06/[address] [facility]. Her pain has continued to worsen/evolve since this time. She has tried Lyrica but d/c d/t lack of efficacy. She is currently managed on lidocaine patches, Tylenol prn, tramadol (prescribed by her PCP) prn with moderate benefit. Claudia is interested in pain management through [facility]. No other concerns today. Functional Status Date Functional Assessmen t No Information Instructions Date Instruction Additional Infor axel No Information Assessments Type Assessment Date assessment Spinal stenosis, lumbar region J impression Moderate stenosis no bjorn at L4/5 on MRI. She does note some pain building with walking and somewhat positive shopping cart sign, but her pain at rest would be less suggestive of spinal stenosis. assessment Other spondylosis, lumbar region impression Pain is concentrated in the R>L lumbosacral region. S/p BL L3, L4, L5 nerve RFA on 03/09/25 w/ myself, reporting significant benefit. Lumbar MRI from 12/28/24 at [facility]:CONCLUSION: Exaggerated lordosis. Pronounced levoscoliosis apex L4-5. Diffuse spondylosis. Additional findings as follows:1. 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 Subarticular/central canal stenosis, moderate L4-5.3. Facet arthrosis, moderate left L5-S1, bilateral L4-5, right L3-4 and bilateral L2-3.4. Mild L3-4 through L5-S1 Modic 1/2 signal.5. No significant change compared to 03/06/2022 assessment Radiculopathy, lumbar region Apr impression About 3 weeks after the procedure she noticed a new burning pain and numbness radiating from her R buttocks region to R anterior thigh. Sometimes has some tingling down to her toes. Has some benefit w/ Tylenol. Exam today reveal altered sensation over R L3 dermatome and positive R SLR. She also has some TTP over R piriformis, though no paresthesias were reproduced on exam and I would not expect anterior thigh sx if her pain was d/t piriformis syndrome. Lumbar MRI reviewed today, which reveals moderate foraminal stenosis on the R at L3-4, which could be causing her pain and sx.Has tried PT, chiropractic, and ice/heat without substantial improvement. She has tried ESIs and NRIs at [facility] with about 2 months of relief at a time. Outside records confirm the following procedures: R L3 NRI on 08/16/24, BL L4 NRI on 06/03/24 and BL L4 TFESI 01/19/24, R L3 and L4 NRI on 12/22/23. She has tried Lyrica but d/c d/t lack of efficacy. She is currently managed on lidocaine patches, Tylenol prn, tramadol (prescribed by her PCP) prn with moderate benefit. Mental Status Date Cognitive Assessment Orientation - Ridott ed to time, place, person, situation. Patient Care Teams Name Effective Dates (start - stop) Status Members No Information
--- OUTSIDE RECORDS SUMMARY | 2025-04-19 06:20 | XMS_ITS | Continuity of Care Document ---
Author Organization [facility] dm[facility] Address [address] [place] [address] Phone Care Team Providers Care Director Child Abuse Therapy Name Role Phone Amber CASTRO, Jamar Unavailable [...] Copied on Encounter OFFICE/OUTPAT IENT VISIT, EST [facility], [address], [place], [id number], [place] tel:[phone] [facility] low back pain (chief complaint) Spinal stenosis, lumbar regionOther spondylosis, lumbar regionRadicul opathy, lumbar region Apr-0 5 Yaccarino Vincent. [address], [address], [place], [id number], [place]. tel:[phone] Referring Provider: Marla Christianson, [facility] [address] [place], [address]. tel:[phone] [facility], [address] [place] [address], [id number], [place] tel:[phone] [facility] Other spondylosis, lumbar region 5 Yaccarino Vincent. [address], [address], [place], [id number], [place]. tel:[phone] Referring Provider: Marla Christianson, [facility] [address] [place], [address]. tel:[phone] OFFICE/OUTPAT IENT VISIT, EST [facility], [address] [place] [address], [id number], [place] tel:[phone] [facility] Follow Up (chief complaint) Spinal stenosis, lumbar regionOther spondylosis, lumbar region February- 5 Yaccarino Vincent. [address], [address], [place], [id number], [place]. tel:[phone] Referring Provider: Marla Christianson, [facility] [address] [place], [address]. tel:[phone] [facility], [address] [place] [address], [id number], [place] tel:[phone] [facility] Other spondylosis, lumbar region Jan- 5 Yaccarino Vincent. [address], [address], [place], [place], [id number], [place]. tel:[phone] [facility], [address] [place] [address], [id number], [place] tel:[phone] [facility] Other spondylosis, lumbar region Apr-2 5 Yaccarino Vincent. [address], [address], [place], [id number], [place]. tel:[phone] Referring Provider: Marla Christianson, [facility] [address] [place], [address]. tel:[phone] [facility], [address] [place] [address], [id number], [place] tel:[phone] [facility] Other spondylosis, lumbar region Apr-1 5 Yaccarino Vincent. [address], [address], [place], [id number], [place]. tel:[phone] [facility], [address] [place] [address], [id number], [place] tel:[phone] [facility] Other spondylosis, lumbar region Apr-1 5 Yaccarino Vincent. [address], [address], [place], [id number], [place]. tel:[phone] Referring Provider: Marla Christianson, [facility] [address] [place], [address]. tel:[phone] OFFICE/OUTPAT IENT VISIT, [facility] Pain [facility], [address] [place] [address], [id number], [place] tel:[phone] [facility] low back pain (chief complaint) Spinal stenosis, lumbar regionOther spondylosis, lumbar region Apr-0 5 Yaccarino Vincent. [address], [address], [place], [id number], [place]. tel:[phone] Referring Provider: Marla Christianson, [facility] [address] [place], [address]. tel:[phone] OFFICE/OUTPAT IENT VISIT, [facility], [address], [place], [id number], [place] tel:[phone] [facility] low back pain (chief complaint) Other spondylosis, lumbar regionSpinal stenosis, lumbar region 5 Amber Roldan. [address], [address], [place], [place], [id number], [place]. tel:[phone] Referring Provider: Marla Christianson [facility] [address], [place], [address]. tel:[phone] [facility], [address], [place], [id number], [place] tel:[phone] [facility] No Information Amber Roldan. [address], [address], [place], [place], [id number], [place]. tel:[phone] Family History Family Member Type Diagnosis Age At Onset No Information Payers Payer name Insurance type Covered libertarian ID Authorferna tirodolfo(s) Medicare MB [id number] Blue Cross Supplement BL [id number] Social History Type Description Quantity Date Captured [...] Of Treatment Date Type Action Status Goal Unhealthy drug use screening . Due on due Goal PHQ-9. Due on du e Goal Review Allergy List. Due on due Goal Medication Reconciliation. D ue on due Goal Tobacco screening. Due on Wi due Goal Weight. Due on d ue Goal Update Social History. Due o n due Goal Zoster vaccine (1st). Due on due Goal Height. Due on d ue Goal Tobacco Use. Due on due Goal Zoster vaccine (2nd). Due on due Goal Height. Due on [...] Goal Tobacco Use. Due on 025 due Goal PHQ-9. Due on du e Goal Height. Due on d ue Goal Update Social History. Due o n due Goal Tobacco screening. Due on due Goal Zoster vaccine (1st). [...] Due on 025 due Appointment Claudia Rhodes #[id number] Transfor aminal JOSE GUADALUPE - Right L3-L4 [...] completed a lumbar MRI on 12/28/24 at [facility] and inquires about the results. No other concerns today. low back pain Severity level i s 7. It occurs intermittently. Symptoms are aggravated by sitting, standing, walking and bending backward. Symptoms are relieved by medications. Comments: This i s my first evaluation of the patient, referred by Marla Christianson MD from [facility]. Previous clinic notes, records, and imaging reviewed. [...] improvement. She has had repeat ESIs and [place] with about 2 months of relief at [...] Last lumbar MRI completed on 03/06/22 at [facility]. Her pain has continued to worsen/evolve since this time. She has tried Lyrica but d/c d/t lack of efficacy. She is currently managed on lidocaine patches, Tylenol prn, tramadol (prescribed by her PCP) prn with moderate benefit. Claudia is interested in pain management through [facility]. No other concerns today. Functional Status Date Functional Assessmen t No Information Instructions Date Instruction Additional Infor mation No Information Assessments Type Assessment Date assessment Spinal stenosis, lumbar region J impression Moderate stenosis no bjorn at L4/5 on MRI. She does note some pain building with walking and somewhat positive shopping cart sign, but her pain at rest would be less suggestive of spinal stenosis. impression Pain is concentrated in the R>L lumbosacral region. S/p BL L3, L4, L5 nerve RFA on 03/09/25 w/ myself, reporting significant benefit. Lumbar MRI from 12/28/24 at [facility]:CONCLUSION: Exaggerated lordosis. Pronounced levoscoliosis apex L4-5. Diffuse spondylosis. Additional findings as follows:1. 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 Subarticular/central canal stenosis, moderate L4-5.3. Facet arthrosis, moderate left L5-S1, bilateral L4-5, right L3-4 and bilateral L2-3.4. Mild L3-4 through L5-S1 Modic 1/2 signal.5. No significant change compared to 03/06/2022 assessment Other spondylosis, lumbar region assessment Radiculopathy, lumbar region Apr impression About [...] She has tried ESIs and NRIs at [place] with about 2 months of relief at [...] Mental Status Date Cognitive Assessment Orientation - Bowen ed to time, place, person, situation. Patient Care Teams Name Effective Dates (start - stop) Status Members No Information
--- OUTSIDE RECORDS SUMMARY | 2025-04-28 17:17 | XMS_ITS | Clinical Summary ---
Author Organization [facility] Address [address] [place] [address] Care Team Providers Care Commercial Lines Assistant Name Role Phone Marla Christianson MD Primary Care Provider [phone] Allergies Active Allergy Reactions Criticality Noted Date [...] daily. 14 Tablet 11/12/19 24 5:26 PM SAFETY PERSON 024 Active potassium chloride (K-TAB) 10 mEq [...] before breakfast. 180 g 3 025 Active atorvastatin (LIPITOR) 10 mg tabletIndications [...] THE EVENING 135 Tablet 3 025 Active cephalexin 250 mg capsuleIndication s:Frequent urinary tract infections TAKE 1 CAPSULE BY MOUTH ONCE DAILY FOR UTI PROPHYLAXIS 90 Capsule 025 Active nitrofurantoin macrocrystals/mon ohydrate (MACROBID) 100 mg capsuleIndication s:Complicated UTI (urinary tract infection) Take 1 Capsule (100 mg) by mouth two times daily for 7 days. 14 Capsule 025 2024 Active sotaloL (BETAPACE) 80 mg tabletIndications :SVT (supraventricular tachycardia) (HC) TAKE 1 TABLET BY MOUTH IN THE MORNING AND 1/2 (ONE-HALF) IN THE EVENING 135 Tablet 024 2024 Discontinued cephalexin 250 mg capsuleIndication s:Frequent urinary tract infections TAKE 1 CAPSULE BY MOUTH ONCE DAILY FOR UTI PROPHYLAXIS 90 Capsule 025 2024 Discontinued cefadroxil (DURICEF) 1 gram tabletIndications :Frequent urinary tract infections Take 1 g by mouth two times daily for 10 days. 20 Tablet 025 2024 Discontinued(* Availability/F ormulary change/Cost of medication) cephalexin 500 mg capsuleIndication s:Frequent urinary tract infections Take 1 Capsule (500 mg) by mouth three times daily for 10 days. 30 Capsule 025 2024 Discontinued(* Med ineffective) Active Problems Problem Noted Date Diagnosed Date Paroxysmal tachycardia 04/20/2025 Gastric outlet obstruction v ersus transient small [...] Encounters Date Type Department Care Team Description 04/28/2025 Telephone [facility] [address] [place] [address] Marla Christianson MD Medication Management (nitrofurantoin macrocrystals/monohydra te (MACROBID) 100 mg capsule) 04/24/2025 Telephone [facility] [address] [place] [address] Marla Christianson MD Results (Urine cx) 04/24/2025 Telephone [facility] [address] [place] [address] Marla Christianson MD Prior Authorization (cefadroxil (DURICEF) 1 gram tablet APPROVED UNTIL 10/11/25) 04/21/2025 Telephone [facility] [address] [place] [address] Marla Christianson MD Medication Management (UTI) 04/20/2025 8:45 AM CDT Office Visit [facility] [address] [place] [address] Marla Christianson MD UTI (Back pain) 04/20/2025 Travel 04/15/2025 Travel 03/30/2025 Orders Only [facility] Scanner 1 scan: (1-Ord) [place], URINE CULTURE/UA, 03/30/2025 03/30/2025 Refill [facility] [address] [place] [address] Marla Christianson MD Refill Request (Cephalexin) 03/30/2025 Refill [facility] [address] [place] [address] Chriss Mcarthur MD Refill Request (Sotalol) 03/09/2025 Orders Only [facility] Scanner 1 scan: (1-Ord) [facility], LUMBAR RADIOFREQUENCY ABLATION, 03/09/2025 02/02/2025 11:00 AM CDT Office Visit [facility] [address] [place] [address] Ariel Maza MD 01/28/2025 Travel from Last 3 Months Immunizations Immunization Administration Dates Next Due COVID-19 VACCINE SPIKEVAX (M ODERNA 50MCG/0.5ML) 12YO+ PFS 10/27/2024,10/14/2023 COVID-19 vaccine (Pfizer-Bio NTech 30mcg/0.3mL) 12YO+ BIVALENT PF, MDV 07/09/2022 [...] or isolated from those around you? 0 04/15/2025 Financial Resource Strain Answer Date R ecorded Difficulty of Paying Living Expenses 3 04/15/2025 Difficulty of Paying Living Expenses Not on file 04/15/2025 Food Insecurity Answer Date Recorded Do you worry your food will run out before you are able to buy more? 1 04/15/2025 Transportation Needs Answer Date Record ed Does lack of transportation keep you from medica l appointments? 1 04/15/2025 Does lack of transportation keep you from work, meetings or getting things that you need? 1 04/15/2025 Housing Stability Answer Date Recorded What is your housing situation today? 1 04/15/2025 Utilities Answer Date Recorded Do you have trouble paying f or utilities (for example, heat, electricity, water, phone)? 1 04/15/2025 Comments No Sex and Gender Information Value Date Recorded Sex Assigned at Not on file Legal Sex Female 6:28 AM SAFETY PERSON Gender Identity Not on file Sexual Orientation [...] Sign Reading Time Taken Comments Blood Pressure 131/78 04/20/2025 8:44 AM CDT Pulse 58 04/20/2025 8:44 AM CDT Temperature 36.6 C (97.8 F) 11/12/2023 8:50 AM SAFETY PERSON Respiratory Rate 16 01/07/2024 10:14 AM CDT Oxygen Saturation 98% 04/20/2025 8:44 AM CDT Inhaled Oxygen Concentration - - Weight 71.9 kg (158 lb 9.6 oz) 10/27/2024 9:27 A M SAFETY PERSON Height 150.3 cm (4' 11.17) 10/27/2024 9:[address] Body Mass Index 31.85 10/27/2024 9:27 AM SAFETY PERSON Plan of Treatment Upcoming Encounters Date Type Department Care Team (Late st Contact Info) Description 07/13/2025 1:45 PM CDT Office Visit [address] [address] Jason Joy MD [address] [place] [address] Health Maintenance Due Date Last Done Comments COVID-19 vaccine series ( season) 2025 10/27/2024, 10/14/2023, 07/09/2022, Additional history exists Influenza Vaccine (#1) 2025 , 07/10/2019, 07/04/2019, Additional history exists BMI (ht and wt [...] RSV vaccine for adults or Completed 02/24/2024 Hepatitis B series for 19+ Aged Out N o longer eligible based on patient's age to complete this topic Medical Devices Implanted Type Area Qualitative Researcher Device Identifier Shelf Expiration Date Model / Serial / Lot Sling Pelvic Altis Sis Continence - [id number] Implanted:Qty: 1 on 11/12/2023 by Jason Joy MD at [facility] N/A: Vagina [employer] 05/04/2026 [id number] / / [id number] Procedures Procedure Name Priority Date/Time Associated Diagnosis Comments URINE CULTURE Routine 04/20/2025 8:48 AM CDT Frequent urinary tract infections URINALYSIS MICROSCOPIC Routine 04/20/2025 8:48 AM CDT Frequent urinary tract infections URINALYSIS MACROSCOPIC - [facility] ONLY POC DIP (QUEST) Routine 04/20/2025 8:48 AM CDT Frequent urinary tract infections SCAN-PATHOLOGY REPORT 03/30/2025 12:00 AM CDT SCAN-OPERATIVE/PROCE DURE REPORT 03/09/2025 12:00 AM CDT XR DXA BONE DENSITY 2 SITES AXIAL Routine 02/22/2024 9:15 AM CDT Osteopenia, unspecified location from Last 3 Months or Most Recently Relevant to Health Maintenance Results * (ABNORMAL) POCT Urinalysis Dipstick Only (04/20/2025 8:48 AM CDT) PH 5.5 5.0 - 8.0 [facility] SPECIFIC GRAVITY 1.025 1.001 - 1.035 [facility] GLUCOSE NEGATIVE NEGATIVE [facility] BILIRUBIN NEGATIVE NEGATIVE [facility] KETONES NEGATIVE NEGATIVE [facility] OCCULT BLOOD TRACE(A) NEGATIVE [facility] PROTEIN NEGATIVE NEGATIVE [facility] NITRITE NEGATIVE NEGATIVE [facility] LEUKOCYTE ESTERASE 2+(A) NEGATIVE [facility] Urine URINE SPECIMEN / Unknown 04/20/2025 8:48 AM CDT 04/20/2025 8:48 AM CDT Marla Christianson MD URINE Final Resul t [facility] [address] [place] [address], [facility] [address] [place] [address] * (ABNORMAL) URINALYSIS MICROSCOPIC (04/20/2025 8:48 AM CDT) RBC 0-2 0-2, None Seen /HPF 04/20/2025 3:07 PM CDT [facility] WBC >100(A) 0-2, 3-5, None Seen /HPF 04/20/2025 3:07 PM CDT [facility] BACTERIA Moderate(A ) None Seen, Rare, Few Bacteria/ HPF 04/20/2025 3:07 PM CDT [facility] EPITHELIAL CELLS None Seen None Seen, Few Epi/HPF 04/20/2025 3:07 PM CDT [facility] HYALINE CASTS 6-10(A) 0-2, 3-5 /LPF 04/20/2025 3:07 PM CDT [facility] Urine URINE SPECIMEN / Unknown Non-Blood / Unknown 04/20/2025 8:48 AM CDT 04/20/2025 8:48 AM CDT us Marla Christianson MD URINE Final Resul t [facility] [address] [place] [address], * (ABNORMAL) URINE CULTURE (04/20/2025 8:48 AM CDT) CULTURE RESULT(A) 04/22/2025 1:13 PM CDT [facility] CULTURE >100,000 CFU/mL Escherichia coli 04/22/2025 1:13 PM CDT [facility] Comment:ESBL-positive (Exten ded-spectrum beta-lactamase); multidrug-resistant organism. Urine URINE SPECIMEN / Unknown Non-Blood / Unknown 04/20/2025 8:48 AM CDT 04/20/2025 8:48 AM CDT Narrative Organism Antibiotic Method Susceptibility Escherichia coli TRIMETHOPRIM/SULF >=16/304: R Escherichia coli AMPICILLIN >=32: R Escherichia coli CEFAZOLIN >=32: R Escherichia coli CEFAZOLIN-UC >=32: R Comment:Cefazolin-UC interpretations are for therapy of uncomplicated UTIs due to E.coli, K.pneumoniae, or P.mirablis. Cefazolin breakpoint is used as a surrogate to predict results for the oral agents - cefdinir, cefuroxime, and cephalexin, when used for therapy of uncomplicated UTIs due to E coli, K, pneumoniae, and P. mirabilis. The FDA recommends cefadroxil susceptibility can be deduced from cefazolin. Escherichia coli GENTAMICIN >=16: R Escherichia coli CEFTRIAXONE >=64: R Escherichia coli CEFTAZIDIME R Escherichia coli LEVOFLOXACIN >=8: R Escherichia coli CIPROFLOXACIN >=4: R Escherichia coli PIPERACILLIN/TAZO <=4: S Escherichia coli AMPICILLIN/SULBACTAM >=32: R Escherichia coli CEFEPIME 16: R Escherichia coli MEROPENEM <=0.25: S Escherichia coli NITROFURANTOIN <=16: S us Marla Christianson MD MICROBIOLOGY Final Resul t [facility] [address] [place] [address], [place] * SCAN-PATHOLOGY REPORT (03/30/2025 12:00 AM CDT) us Scanner OTHER Final Result * SCAN-OPERATIVE/PROCEDURE REPORT (03/09/2025 12:00 AM CDT) us Scanner OTHER Final Result * (ABNORMAL) XR DXA BONE DENSITY 2 [...] to assess therapeutic efficacy. Crystal Baltazar PA-C [facility] 03/01/2024 Narrative 03/01/2024 1:47 PM CDT For Patients: Results are automatically released to your [facility] ([employer]) account once available, in compliance with federal regulations. This means that you may see your results before your provider has had a chance to review them. Please allow 2-3 business days for your provider to comment on the results. XR DXA Bone Mineral Density (BMD) EXAM LOCATION: [address] [address] PATIENT NAME: Claudia Rhodes DATE OF : [...] two scanners are made by the same freight elevator erector. 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
--- NOTE | 2025-04-28 17:21 | ED.GENADULT ---
HPI - General Adult General Chief complaint: Arrhythmia/Palpitations Stated complaint: Accelerated heart rate/ has tachycardia Time Seen by Provider: 04/28/25 17:20 History of Present Illness HPI narrative: Arrives with complaints of palpitations, lightheadedness , and nausea. reports being treated for UTI currently and believes the antibiotics are making her dizzy and nauseous. Alert and oriented, VSS, ABCs intact. 79-year-old woman presenting to the emergency department with concern of just not feeling very well. Feels mildly nauseated. Have some runs of palpitations and was concerned tonight that might be experiencing supraventricular tachycardia which she has had before. She has not had a fever. Did have an ablation around in mid March in her back and some more around that time developed a urinary tract infection she believes not able to distinguish the back pain from that verses involving urinary tract infection. Was seen in this facility on March 30 and diagnosed with dysuria. Was initiated on Macrobid (nitrofurantoin) per records although she reports being treated with cephalexin chronically for suppressive therapy and then increase to 500 mg per dose. She does have a history of ESBL culture from urine. Shared is wondering if is might be nauseated and feeling unwell as intolerant of the current antibiotic of nitrofurantoin. She has a couple days dosing remaining. This concerned because early this coming week she does have a repeat ablation scheduled and is to be 48 hours free of antibiotics. In any case called in with these symptoms and was advised to be evaluated in the emergency department. She wonders whether not she might need some IV antibiotics. Related Data Home Medications ?Medication ?Instructions ?Recorded ?Confirmed acetaminophen 650 mg 650 mg PO Q8H PRN 04/17/22 04/28/25 tablet,extended release atorvastatin 10 mg tablet 10 mg PO .Bedtime 04/17/22 04/28/25 cholestyramine-aspartame 4 gram See Rx Instructions PO DAILY 04/17/22 04/28/25 oral powder for susp in a packet clopidogrel 75 mg tablet 75 mg PO DAILY 04/17/22 04/28/25 ergocalciferol (vitamin D2) 10 mcg 2,000 unit PO DAILY 04/17/22 04/28/25 (400 unit) tablet lisinopril 20 1 tab PO DAILY 04/17/22 04/28/25 mg-hydrochlorothiazide 25 mg tablet multivitamin (Multiple Vitamins 1 tab PO QDAY 04/17/22 04/28/25 tablet) omeprazole 20 mg capsule,delayed 20 mg PO DAILY 04/17/22 04/28/25 release sotalol 80 mg tablet 40 mg PO BID 04/17/22 04/28/25 tramadol 50 mg tablet 50 mg PO Q6-8H PRN 01/21/24 04/28/25 cephalexin 250 mg capsule mg PO 07/18/24 02/02/25 potassium chloride 10 mEq 10 meq PO DAILY 07/18/24 04/28/25 tablet,extended release Previous Rx's ?Medication ?Instructions ?Recorded nitrofurantoin 100 mg PO BID #13 caps 03/30/25 monohydrate/macrocrystals 100 mg capsule (Macrobid) Allergies Allergy/AdvReac Type Severity Reaction Status Date / Time codeine AdvReac Severe Nausea, Verified 04/28/25 17:30 vomiting, dizziness hydrocodone AdvReac Severe Nausea, Verified 04/28/25 17:30 vomiting, dizziness meperidine AdvReac Severe Nausea, Verified 04/28/25 17:30 vomiting, dizziness morphine AdvReac Severe Nausea, Verified 04/28/25 17:30 vomiting, dizzy NSAIDS (Non-Steroidal AdvReac Severe Nausea, Verified 04/28/25 17:30 Anti-Inflamma vomiting, dizziness ciprofloxacin AdvReac Mild Palpitation Verified 04/28/25 17:30 s oxycodone AdvReac Mild Nausea Verified 04/28/25 17:30 Review of Systems Status of ROS: Reports: 6 or more systems reviewed and unremarkable except as noted in History and below [facility] Medical History Hypokalemia ?E87.6 - Hypokalemia (ICD-10) Lumbar degenerative disc disease ?M51.36 - Other intervertebral disc degeneration, lumbar region (ICD-10) 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 ?M18.0 - Bilateral primary osteoarthritis of first carpometacarpal joints (ICD-10) Urinary tract infection ?N39.0 - Urinary tract infection, site not specified (ICD-10) Squamous cell carcinoma in situ (SCCIS) ?D09.9 - Carcinoma in situ, unspecified (ICD-10) Recurrent urinary tract infection ?N39.0 - Urinary tract infection, site not specified (ICD-10) Premature atrial contraction ?I49.1 - Atrial premature depolarization (ICD-10) Pain of right lower extremity ?M79.604 - Pain in right leg (ICD-10) Nausea ?R11.0 - Nausea (ICD-10) History of supraventricular tachycardia ?Z86.79 - Personal history of other diseases of the circulatory system (ICD-10) Hiatal hernia ?K44.9 - Diaphragmatic hernia without obstruction or gangrene (ICD-10) Surgical History Osteoarthritis of carpometacarpal (CMC) joint of right thumb (09/21/19) ?M18.11 - Unilateral primary osteoarthritis of first carpometacarpal joint, right hand (ICD-10) History of total knee replacement (~2009) ?Z96.659 - Presence of unspecified artificial knee joint (ICD-10) History of total hysterectomy with bilateral salpingo-oophorectomy (BSO) (~1991) ?Z90.710 - Acquired absence of both cervix and uterus (ICD-10) ?Z90.722 - Acquired absence of ovaries, bilateral (ICD-10) ?Z90.79 - Acquired absence of other genital organ(s) (ICD-10) History of resection of small bowel (~1991) ?Z90.49 - Acquired absence of other specified parts of digestive tract (ICD-10) History of cholecystectomy (~2002) ?Z90.49 - Acquired absence of other specified parts of digestive tract (ICD-10) History of carpal tunnel release of both wrists ?Z98.890 - Other specified postprocedural states (ICD-10) History of bilateral cataract extraction (~2007) ?Z98.41 - Cataract extraction status, right eye (ICD-10) ?Z98.42 - Cataract extraction status, left eye (ICD-10) Family History Father FH: colonic polyps Leukemia Brother FH: colonic polyps Mother Coronary artery disease Hypercholesteremia High blood pressure Sister Breast cancer Social History Smoking Status: Never smoker Do you use any of these nicotine containing products: None Second hand tobacco smoke exposure: No How often do you have a drink containing alcohol: never AUDIT-C Alcohol total score: 0 Non-prescribed substance use: denies use service: No Exam Narrative: Exam Narrative: Pleasant. NAD. Quite alert. Skin is warm and dry. Lower extremities with soft edema. Lungs are clear. Heart in regular rate and rhythm. Abdomen is soft and with a little discomfort to palpation across the low abdomen. Const: Vital Signs, click to edit/add: Vital Signs - 24 hr 04/28/25 17:33 Temperature 97.8 F Pulse Rate [Pulse Oximeter] 76 Respiratory Rate 20 Blood Pressure [Ri ght Upper Arm] 122/78 Pulse Oximetry 96 Oxygen Delivery Me thod Room Air Documenting provider has reviewed patient's vital signs: yes Course Vital Signs Vital signs: Initial Vital Signs Temperature 97.8 F 04/28/25 17:33 Temperature Source Temporal Artery Scan 04/28/25 17:33 Pulse Rate 76 04/28/25 17:33 Respiratory Rate 20 04/28/25 17:33 Blood Pressure 122/78 04/28/25 17:33 Blood Pressure Mean 92 04/28/25 17:33 Pulse Oximetry 96 04/28/25 17:33 Oxygen Delivery Method Room Air 04/28/25 17:33 Vital Signs Temperature 97.8 F 04/28/25 17:33 Pulse Rate 76 04/28/25 17:33 Respiratory Rate 20 04/28/25 17:33 Blood Pressure 122/78 04/28/25 17:33 Pulse Oximetry 96 04/28/25 17:33 Oxygen Delivery Method Room Air 04/28/25 17:33 Temperature 97.8 F 04/28/25 17:33 Pulse Rate 76 04/28/25 17:33 Respiratory Rate 20 04/28/25 17:33 Blood Pressure 122/78 04/28/25 17:33 Pulse Oximetry 98 04/28/25 20:35 Oxygen Delivery Method Room Air 04/28/25 17:33 Medications Administered Medications: Discontinued Medications Generic Name Dose Route Start Last Admin Trade Name Freq PRN Reason Stop Dose Admin Sodium Chloride 1,000 mls @ 1,000 mls/hr 04/28/25 17:59 04/28/25 19:35 0.9 % Sodium Chloride 1000 Ml IV 04/28/25 18:58 Infused .Q1H ONE Infusion Ertapenem 1 gm/ Sodium 100 mls @ 200 mls/hr 04/28/25 20:04 04/28/25 20:53 Chloride IVPB 04/28/25 20:05 Infused ONCE ONE Infusion Ondansetron HCl 4 mg 04/28/25 19:22 04/28/25 19:35 Ondansetron Odt 4 Mg Tab PO 04/28/25 19:23 Not Given ONCE ONE Medical Decision Making MDM Narrative Medical decision making narrative: Does not appear to be in SVT at this time. Will continue to monitor in the emergency department for evidence of other arrhythmia. Check labs looking for infection or electrolyte abnormalities. Might even have some degree of dyspepsia or heartburn. Certainly might be having trouble with this medication but with history of ESBL and chronic/recurrent infections I would want to know whether urinary tract infection is actually still present. Labs are reassuring other than urine does look to be potentially infected. Last culture resulting with singular organism was from May of 2023 growing E coli as ESBL which was sensitive to cefoxitin, ertapenem, imipenem, nitrofurantoin and piperacillin/tazobactam. No events on secured entrance monitor during time in the emergency department. Feels a little better with IV hydration and Zofran here in the emergency department. Dosing 1 time dose of ertapenem here in the emergency department. Renal function looks good today. Will extend course of nitrofurantoin pending results of culture. See patient discharge plan for further discussion Stay well hydrated with water. Urine culture will be pending here. We will call you if changes need to be made. Regardless I would follow-up in a week to recheck your urine. I am adding another 5 days of nitrofurantoin to the antibiotic course that you already have (you can get this extra from [facility]) I do not know if the nitrofurantoin is causing your stomach discomfort or what looks to be infection as discussed. Zofran also from [facility]. And continue to take the nitrofurantoin with food. You received a dose of ertapenem here in the emergency department. We might need to return to IV antibiotics if you are feeling worse, develop a fever or cultures suggest alternate treatment. Return for worsening lightheadedness, marked increase in abdominal pain, repeated vomiting, associated fever. Medical Records Medical records reviewed: Yes I reviewed the patient's medical records Lab Data Lab results reviewed: Yes I reviewed the patient's lab results Labs: Lab Results 04/28/25 04/28/25 Range/Units 18:21 18:48 WBC 5.86 (4.50-11.00) K/uL RBC 3.64 L (4.00-5.20) m/uL Hgb 10.9 L (12.0-16.0) gm/dL Hct 34.8 (33.0-51.0) % MCV 96 (80-100) fL MCH 30 (26-34) pg MCHC 31 L (32-36) gm/dL RDW Coeff of Cece 13.6 (11.5-15.5) % Plt Count 157 (140-440) K/uL Neut % (Auto) 42.1 (42.0-72.0) % Lymph % (Auto) 44.4 H (20-44) % [place] % (Auto) 11.1 H (0.0-11.0) % Eos % (Auto) 2.4 (0.0-7.0) % Baso % (Auto) 0.0 (0.0-3.0) % Neut # (Auto) 2.47 (1.7-7.0) K/uL Lymph # (Auto) 2.60 (0.90-2.90) K/uL [place]inger # (Auto) 0.70 (0.00-0.90) K/UL Eos # (Auto) 0.14 (0.00-0.50) K/uL Baso # (Auto) 0.00 (0.00-0.30) K/uL Abs Immat Gran (auto) 0.00 (0.00-0.30) K/uL Imm/Tot Granulo (auto) 0.0 % Sodium 140 (135-149) mmol/L Potassium 4.5 (3.6-5.1) mmol/L Chloride 108 (96-114) mmol/L Carbon Dioxide 26 (20-32) mmol/L Anion Gap 6 L (7-15) mEq/L BUN 19 (7-30) mg/dL Creatinine 0.8 (0.5-1.5) mg/dL Estimated Creat Clear 31.69 Estimated GFR 74 ml/min Glucose 83 (60-115) mg/dL Calcium 9.5 (8.4-10.6) mg/dL Magnesium 2.1 (1.5-2.6) mg/dL C-Reactive Protein < 0.5 L (0.5-1.0) mg/dL Urine Color Yellow (Yellow) Urine Appearance Clear (Clear) Urine pH 5.0 (5.0-8.5) Ur Specific [place] 1.010 (1.000-1.030) Urine Protein Negative (Negative) Urine Glucose (UA) Negative (Negative) Urine Ketones Negative (Negative) Urine Blood Negative (Negative) Urine Nitrite Negative (Negative) Urine Bilirubin Negative (Negative) Urine Urobilinogen 0.2 (0.2-1.0) Ur Leukocyte Esterase 2+ A (Negative) Urine RBC 0-2 (0-2) Urine WBC 25-50 A (0-5) Ur Squamous Epith Cells Few (None-Few) Urine Bacteria Few A (None) Discharge Plan Discharge Clinical Impression: Malaise, UTI (urinary tract infection) Patient Disposition: Home, Self-Care Condition: Stable Additional Instructions: Stay well hydrated with water. Urine culture will be pending here. We will call you if changes need to be made. Regardless I would follow-up in a week to recheck your urine. I am adding another 5 days of nitrofurantoin to the antibiotic course that you already have (you can get this extra from [facility]) I do not know if the nitrofurantoin is causing your stomach discomfort or what looks to be infection as discussed. Zofran also from [facility]. And continue to take the nitrofurantoin with food. You received a dose of ertapenem here in the emergency department. We might need to return to IV antibiotics if you are feeling worse, develop a fever or cultures suggest alternate treatment. Return for worsening lightheadedness, marked increase in abdominal pain, repeated vomiting, associated fever. Activity Level: No Restrictions Discharge Diet: Regular Prescriptions: No Action clopidogrel 75 mg tablet 75 mg PO DAILY ergocalciferol (vitamin D2) 10 mcg (400 unit) tablet 2,000 unit PO DAILY sotalol 80 mg tablet 40 mg PO BID multivitamin [Multiple Vitamins] Tablet 1 tab PO QDAY acetaminophen 650 mg tablet extended release 650 mg PO Q8H PRN cholestyramine-aspartame 4 gram powder in packet See Rx Instructions PO DAILY Rx Instructions: 4 Grams PO daily; lisinopril-hydrochlorothiazide 20-25 mg tablet 1 tab PO DAILY omeprazole 20 mg capsule,delayed release(DR/EC) 20 mg PO DAILY atorvastatin 10 mg tablet 10 mg PO .Bedtime tramadol 50 mg tablet 50 mg PO Q6-8H PRN cephalexin 250 mg capsule PO potassium chloride 10 mEq tablet extended release 10 meq PO DAILY nitrofurantoin monohyd/m-cryst [Macrobid] 100 mg capsule 100 mg PO BID Qty: 13 0RF Rx Instructions: must administer with a meal/food Follow Up/Referrals: Marla Christianson MD [Primary Care Provider, Family Practice] Stand Alone Forms: [facility] Info Instructions
[2025-04-28 17:33] VITALS: BP 122/78; PULSE 76; RESP 20; TEMP 36.6; O2SAT 96; BMI 30.3
[2025-04-28 18:34] LABS: Hematocrit 34.8 % (33.0-51.0); Hemoglobin* 10.9 gm/dL (12.0-16.0); Immature Granulocytes Abs Auto 0.00 K/uL (0.00-0.30); Immature Granulocytes Pct Auto 0.0 %; Lymphocytes Absolute Auto 2.60 K/uL (0.90-2.90); Mean Corpuscular HGB Conc 31 gm/dL (32-36); Mean Corpuscular Hemoglobin 30 pg (26-34); Mean Corpuscular Volume 96 fL (80-100); RDW Coefficient of Variation % 13.6 % (11.5-15.5); Red Blood Count 3.64 m/uL (4.00-5.20); White Blood Count* 5.86 K/uL (4.50-11.00)
[2025-04-28 18:39] LABS: Slide Review Reflex No
[2025-04-28 18:57] LABS: Appearance Urine Clear (Clear)
[2025-04-28 19:00] LABS: Chloride* 108 mmol/L (96-114)
[2025-04-28 19:01] LABS: Potassium* 4.5 mmol/L (3.6-5.1); Sodium* 140 mmol/L (135-149)
[2025-04-28 19:03] LABS: Blood Urea Nitrogen* 19 mg/dL (7-30); Creatinine* 0.8 mg/dL (0.5-1.5); Est. Creatinine Clearance* 31.69; Estimated Glomerular Filt Rate 74 ml/min
[2025-04-28 19:04] LABS: Anion Gap 6 mEq/L (7-15); Calcium* 9.5 mg/dL (8.4-10.6); Carbon Dioxide* 26 mmol/L (20-32); Glucose* 83 mg/dL (60-115)
[2025-04-28] MEDS: ERTAPENEM 1 GM in 0.9 % SODIUM CHLORIDE Mini-bag 100 ML IVPB (20:14)
[2025-04-28 20:35] VITALS: O2SAT 98
== END 2025-04-28 20:45 | disposition home or self-care (01) ==
PROVIDERS: Emergency Provider Family Medicine; PCP Family Medicine
DX: N39.0 Urinary tract infection, site not specified (principal); R53.81 Other malaise; R00.2 Palpitations
CPT/HCPCS: 36415; 80048; 81001; 83735; 85025; 86140; 87086; 94761; 96365; 99284; J1335; J7030

== ENCOUNTER 2025-05-19 12:02 | Emergency (ER) | payer MEDICARE, BC, SELFPAY ==
--- OUTSIDE RECORDS SUMMARY | 2025-05-19 12:04 | XMS_ITS | Clinical Summary ---
Author Organization [employer] [facility] Address [address] [place] [id number] Care Team Providers [employer] Department Chair Name Role Phone Marla Christianson MD Primary Care Provider [phone] Allergies Active Allergy Reactions Criticality Noted Date [...] 0 11/06/19 16 Active durable medical equipment (DME)Indications: Right lumbar [...] 07/08/20 23 Active loratadine (CLARITIN) 10 mg tabletIndications :Sinus pressure Take 1 Tablet (10 mg) by mouth once daily. 90 Tablet 3 10/14/19 24 Active sennosides-docusa te (SENOKOT S) (8.6-50 mg) tabletIndications :Female genital prolapse, unspecified type Take 1 Tablet by mouth once daily. 14 Tablet 4 5:26 PM DIRECTOR OF SURGERY 11/12/19 24 Active potassium chloride (K-TAB) 10 mEq extended-release tabletIndications :Hypokalemia TAKE 1 TABLET BY MOUTH ONCE DAILY WITH A MEAL 90 Tablet 3 06/15/20 24 Active traMADoL (ULTRAM) 50 mg tabletIndications :Spinal stenosis of lumbar region with neurogenic claudication Take 0.5-1 Tablets (25-50 mg) by mouth every 8 hours if needed for Pain. 30 Tablet 10/27/19 25 Active lisinopril-hydroc hlorothiazide, 20-25 mg, (PRINZIDE, ZESTORETIC) 20-25 mg per tabletIndications :HTN (hypertension) Take 1 Tablet by mouth once daily. 90 Tablet 3 10/27/19 25 Active clopidogreL (PLAVIX) 75 mg tabletIndications :TIA (transient ischemic attack),Other symptoms and signs involving the nervous system Take 1 Tablet (75 mg) by mouth once daily in the morning. 90 Tablet 3 10/27/19 25 Active cholestyramine-as partame (Cholestyramine Light) 4 gram powderIndications :Chronic constipation Mix 2 g in liquid then take by mouth before breakfast. 180 g 3 10/27/19 25 Active atorvastatin (LIPITOR) 10 mg tabletIndications :Hyperlipidemia, unspecified hyperlipidemia type Take 1 Tablet (10 mg) by mouth once daily. 90 Tablet 3 10/27/19 25 Active omeprazole (PRILOSEC) 20 mg Delayed-Release capsuleIndication s:Gastroesophagea l reflux disease, unspecified whether esophagitis present TAKE 1 CAPSULE BY MOUTH ONCE DAILY BEFORE A MEAL 90 Capsule 3 11/09/19 25 Active sotaloL 80 mg tabletIndications :SVT (supraventricular tachycardia) (HC) TAKE 1 TABLET BY MOUTH IN THE MORNING AND 1/2 (ONE-HALF) IN THE EVENING 135 Tablet 3 03/30/20 25 Active cephalexin 250 mg capsuleIndication s:Frequent urinary tract infections TAKE 1 CAPSULE BY MOUTH ONCE DAILY FOR UTI PROPHYLAXIS 90 Capsule 04/03/20 25 Active cefadroxil (DURICEF) 1 gram tabletIndications :Frequent urinary tract infections Take 1 g by mouth two times daily for 10 days. 20 Tablet 04/20/20 25 025 Discontin ued(*Avai lability/ Formulary change/Co st of medicatio n) cephalexin 500 mg capsuleIndication s:Frequent urinary tract infections Take 1 Capsule (500 mg) by mouth three times daily for 10 days. 30 Capsule 04/21/20 25 025 Discontin ued(*Med ineffecti ve) nitrofurantoin macrocrystals/mon ohydrate (MACROBID) 100 mg capsuleIndication s:Complicated UTI (urinary tract infection) Take 1 Capsule (100 mg) by mouth two times daily for 7 days. 14 Capsule 04/24/20 25 025 Active Problems Problem Noted Date Diagnosed Date [...] Encounters Date Type Department Care Team Description 05/19/[address] [address] Marla Christianson MD Questions 05/17/2025 3:00 PM CDT Orders Only [address] [address] [facility] [place] 05/17/2025 12:45 PM CDT E-Visit [address] [address] Marla Christianson MD eVisit for Urinary Tract Infection 05/17/2025 Travel 05/17/2025 Telephone [facility] [address] [place] [address] Marla Christianson MD Follow Up 05/16/[address] [address] Marla Christianson MD Refill Request (traMADoL (ULTRAM) 50 mg tablet) 05/12/2025 10:00 AM CDT Orders Only [address] [address] [facility] [place] 05/11/2025 Travel 05/09/2025 1:30 PM CDT Ancillary Procedure [facility] [address] [place] [address] 05/09/2025 12:45 PM CDT Office Visit [address] [address] Marla Christianson MD Constipation (Nausea, abdominal pain, no BM for 5 days) 05/09/2025 Telephone [facility] [address] [place] [address] Marla Christianson MD Results 05/09/2025 Travel 05/08/2025 Nurse Triage [facility] [address] [place] [address] Marla Christianson MD Abdominal Pain/problem 05/08/2025 Telephone [facility] [address] [place] [address] Marla Christianson MD Same Day Appt (BM and nausea) 05/04/2025 Travel 05/03/2025 Telephone [facility] [address] [place] [address] Marla Christianson MD Questions (Medication) 05/02/2025 Telephone [facility] [address] [place] [address] Marla Christianson MD Referral 04/29/2025 Nurse Triage [facility] [address] [place] [address] Marla Christianson MD Error-please disregard 04/29/2025 Telephone [facility] [address] [place] [address] Marla Christianson MD Error-please disregard 04/28/2025 Telephone [facility] [address] [place] [address] Marla Christianson MD Medication Management (nitrofurantoin macrocrystals/monohydr ate (MACROBID) 100 mg capsule) 04/24/2025 Telephone [facility] [address] [place] [address] Marla Christianson MD Results (Urine cx) 04/24/2025 Telephone [facility] [address] [place] [address] Marla Christianson MD Prior Authorization (cefadroxil (DURICEF) 1 gram tablet APPROVED UNTIL 12/31/25) 04/21/2025 Telephone [facility] [address] [place] [address] Marla Christianson MD Medication Management (UTI) 04/20/2025 8:45 AM CDT Office Visit [facility] [address] [facility] [address] Marla Christianson MD UTI (Back pain) 04/20/2025 Travel 04/15/2025 Travel 03/30/2025 Orders Only [facility] Scanner 1 scan: (1-Ord) BETHEL, URINE CULTURE/UA, 03/30/2025 03/30/2025 Refill [facility] [address] [facility] [address] Marla Christianson MD Refill Request (Cephalexin) 03/30/[address] [facility] at [address] [phone] Chriss Mcarthur MD Refill Request (Sotalol) 03/09/2025 Orders Only [facility] Scanner 1 scan: (1-Ord) [facility], LUMBAR RADIOFREQUENCY ABLATION, 03/09/2025 from Last 3 Months Immunizations Immunization Administration [...] on file Legal Sex Female 6:28 AM DIRECTOR OF SURGERY Gender Identity Not on file Sexual Orientation [...] Sign Reading Time Taken Comments Blood Pressure 120/77 05/09/2025 12:54 PM CDT Pulse 56 05/09/2025 12:54 PM CDT Temperature 36.6 C (97.8 F) 11/12/2023 8:50 AM DIRECTOR OF SURGERY Respiratory Rate 16 01/07/2024 10:14 AM CDT Oxygen Saturation 98% 05/09/2025 12:54 PM CDT Inhaled Oxygen Concentration - - Weight 71.9 kg (158 lb 9.6 oz) 10/27/2024 9:27 A M DIRECTOR OF SURGERY Height 150.3 cm (4' 11.17) 10/27/2024 9:[address] Body Mass Index 31.85 10/27/2024 9:27 AM DIRECTOR OF SURGERY Plan of Treatment Upcoming Encounters Date Type Department Care Team (Late st Contact Info) Description 06/15/2025 2:45 PM CDT Office Visit [address] [phone] Jason Joy MD [address] [place] [address] Health Maintenance Due Date Last Done Comments [...] this topic Medical Devices Implanted Type Area Manufactured Buildings Repairer Device Identifier Shelf Expiration Date Model / Serial / Lot Sling Pelvic Altis Sis Continence - [id number] Implanted:Qty: 1 on 11/12/2023 by Jason Joy MD at [facility] N/A: Vagina Coloplast Rachelle 05/04/2026 [id number] / / [id number] Procedures Procedure Name Priority Date/Time Associated Diagnosis Comments URINALYSIS MACROSCOPIC - [facility] ONLY POC DIP ([facility]) Routine 05/17/2025 2:34 PM CDT Dysuria URINALYSIS MICROSCOPIC Routine 05/17/2025 2:33 PM CDT Dysuria URINE CULTURE Routine 05/17/2025 2:33 PM CDT Dysuria CREATININE,ISTAT Routine 05/12/2025 9:51 AM CDT GISELA (acute kidney injury) BASIC METABOLIC PANEL Routine 05/12/2025 9:50 AM CDT GISELA (acute kidney injury) CT ABDOMEN PELVIS W STAT 05/09/2025 3 :03 PM CDT Dehydration Abdominal pain, RUQ (right upper quadrant) HTN (hypertension) Nausea History of GI bleed CBC WITH AUTO DIFFERENTIAL STAT 05/09/2025 1:37 PM CDT Dehydration Abdominal pain, RUQ (right upper quadrant) Nausea History of GI bleed LIPASE STAT 05/09/2025 1:37 PM CDT Dehydration Abdominal pain, RUQ (right upper quadrant) Nausea History of GI bleed CBC WITH AUTO DIFFERENTIAL STAT 05/09/2025 1:37 PM CDT Dehydration Abdominal pain, RUQ (right upper quadrant) Nausea History of GI bleed COMP METABOLIC PANEL STAT 05/09/2025 1:37 PM CDT Dehydration Abdominal pain, RUQ (right upper quadrant) Nausea History of GI bleed URINE CULTURE Routine 04/20/2025 8:48 AM CDT Frequent urinary tract infections URINALYSIS MICROSCOPIC Routine 04/20/2025 8:48 AM CDT Frequent urinary tract infections URINALYSIS MACROSCOPIC - [facility] ONLY POC DIP ([facility]) Routine 04/20/2025 8:48 AM CDT Frequent urinary tract infections SCAN-PATHOLOGY REPORT 03/30/2025 12:00 AM CDT SCAN-OPERATIVE/PROCED URE REPORT 03/09/2025 12:00 AM CDT XR DXA BONE DENSITY 2 SITES AXIAL Routine 02/22/2024 9:15 AM CDT Osteopenia, unspecified location from Last 3 Months or Most Recently Relevant to Health Maintenance Results * (ABNORMAL) POCT Urinalysis Dipstick Only [[id number]] (05/17/2025 2:34 PM CDT) Only the most recent of2 resultswithin the time period is included. PH 5.5 5.0 - 8.0 [facility] SPECIFIC GRAVITY < OR = 1.005 1.001 - 1.035 [facility] Comment: Specific [place] values resulted are outside the analytical measurement range of this device. Recommend repeat/additional testing as clinically indicated. GLUCOSE NEGATIVE NEGATIVE [facility] BILIRUBIN NEGATIVE NEGATIVE [facility] KETONES NEGATIVE NEGATIVE [facility] OCCULT BLOOD NEGATIVE NEGATIVE [facility] PROTEIN NEGATIVE NEGATIVE [facility] NITRITE NEGATIVE NEGATIVE [facility] LEUKOCYTE ESTERASE 1+(A) NEGATIVE [facility] Urine URINE SPECIMEN / Unknown 05/17/2025 2:34 PM CDT 05/17/2025 2:34 PM CDT us Marla Christianson MD URINE Final Resul t [facility] [address] [place] [address], [facility] [address] [place] [address] * (ABNORMAL) URINALYSIS MICROSCOPIC [01247.1] - routine (05/17/2025 2:33 PM CDT) Only the most recent of2 resultswithin the time period is included. RBC 0-2 0-2, None Seen /HPF 05/17/2025 10:39 PM CDT [facility] WBC 51-100(A) 0-2, 3-5, None Seen /HPF 05/17/2025 10:39 PM CDT [facility] BACTERIA Rare None Seen, Rare, Few Bacteria/ HPF 05/17/2025 10:39 PM CDT [facility] EPITHELIAL CELLS None Seen None Seen, Few Epi/HPF 05/17/2025 10:39 PM CDT [facility] HYALINE CASTS 0-2 0-2, 3-5 /LPF 05/17/2025 10:39 PM CDT [facility] Urine URINE SPECIMEN / Unknown Non-Blood / Unknown 05/17/2025 2:33 PM CDT 05/17/2025 2:33 PM CDT Marla Christianson MD URINE Final Resul t [facility] [address] [place] [address], [place] * CREATININE,ISTAT (05/12/2025 9:51 AM CDT) POCT,CREATININ E, ISTAT 0.9 0.6 - 1.3 mg/dL [facility] Blood BLOOD SPECIMEN / Unknown 05/12/2025 9:51 AM CDT 05/12/2025 9:51 AM CDT Marla Christianson MD CHEMISTRY Final Resul t Performing Organization Address City/[facility]/ZIP Co de Phone Number [facility] [address] [place] [address], [facility] [address] [place] [address] * (ABNORMAL) BASIC METABOLIC PANEL (05/12/2025 9:50 AM CDT) GLUCOSE 89 65 - 99 mg/dL [facility] Comment: Fasting reference interval UREA NITROGEN (BUN) 20 7 - 25 mg/dL [facility] CREATININE 0.95 0.60 - 0.95 mg/dL [facility] EGFR 60 > OR = 60 mL/min/1. 73m2 [facility] BUN/CREATININE RATIO SEE NOTE: (calc) [facility] Comment: Not Reported: BUN and Creatinine are within reference range. SODIUM 137 135 - 146 mmol/L [facility] POTASSIUM 4.6 3.5 - 5.3 mmol/L [facility] CHLORIDE 107 98 - 110 mmol/L [facility] CARBON DIOXIDE 17(L) 20 - 32 mmol/L [facility] ELECTROLYTE BALANCE 13 7 - 17 mmol/L (calc) [facility] CALCIUM 9.5 8.6 - 10.4 mg/dL [facility] Blood BLOOD SPECIMEN / Unknown 05/12/2025 9:50 AM CDT 05/12/2025 9:50 AM CDT us Marla Christianson MD CHEMISTRY Final Resul t [facility] [address] [place] [address], [facility] [address] [place] [address] * CT ABDOMEN PELVIS W (05/09/2025 3:03 PM CDT) Anatomical Region Laterality Modality Abdomen, Pelvis, AORTA, LIVER, SPLEEN Computed Tomography 05/09/2025 3:37 PM CDT Narrative 05/09/2025 3:37 PM CDT For Patients: As a result of the Century Cures Act, medical imaging exams and procedure reports are released immediately into your electronic medical record. You may view this report before your referring provider. If you have questions, please contact your health care provider. Indication: Abdominal pain, RUQ Technique: CT abdomen/pelvis with IV contrast utilizing 100 mL Omnipaque 350 Comparison: CT abdomen/pelvis on June 20, 2021 Findings: Lower thorax: Trace bibasilar atelectasis. Abdomen/pelvis: Hepatic steatosis without focal hepatic lesion. Postsurgical changes of cholecystectomy. No biliary ductal dilatation. The spleen, pancreas, and adrenal glands are unremarkable. The kidneys are normal in size and perfusion normal fashion. No suspicious enhancing renal masses or lesions. Simple appearing 1 centimeter cyst at the upper pole of the right kidney. Tiny subcentimeter hypoattenuating lesions in the right kidney too small to characterize, but likely benign. No renal calculi or hydroureteronephrosis. Extrarenal pelvises bilaterally. The bladder is unremarkable. Status post hysterectomy. No suspicious adnexal lesions. Moderate size hiatal hernia. There is no evidence of bowel obstruction or inflammation. Enteroenteric anastomosis in the midline lower abdomen/pelvis without complication. Moderate stool burden throughout the colon. Colonic diverticulosis without CT evidence of acute diverticulitis. No free air, free fluid, or abscess. No abdominopelvic lymphadenopathy. Mild calcific atherosclerosis of the aortoiliac system. Soft tissue/musculoskeletal: Tiny fat containing ventral abdominal wall hernia, decreased in size compared to prior exam. No acute fracture or malalignment. Levoscoliotic curvature of the lumbar spine. Multilevel degenerative changes throughout the spine. No suspicious osseous lesions. Impression: 1. No CT evidence of an acute process involving the abdomen or pelvis. 2. Incidental findings as detailed above. Please note that all CT scans at this facility use dose modulation, iterative reconstruction, and/or weight-based dosing when appropriate to reduce radiation dose to as low as reasonably achievable. Dictated by Blanco Atkins MD @ 05/09/2025 3:37:36 PM (Electronically Signed) Procedure Note Blanco Atkins MD - 05/09/2025 For Patients: As a result of the Cures Act, medical imagingexams and procedure reports are released immediately into your electronicmedical record. You may view this report before your referring provider.If you have questions, please contact your health care provider. Indication: Abdominal pain, RUQ Technique: CT abdomen/pelvis with IV contrast utilizing 100 mL Omnipaque 350 Comparison: CT abdomen/pelvis on June 20, 2021 Findings: Lower thorax: Trace bibasilar atelectasis. Abdomen/pelvis: Hepatic steatosis without focal hepatic lesion. Postsurgical changes ofcholecystectomy. No biliary ductal dilatation. The spleen, pancreas, and adrenal glands are unremarkable. The kidneys are normal in size and perfusion normal fashion. No suspiciousenhancing renal masses or lesions. Simple appearing 1 centimeter cyst atthe upper pole of the right kidney. Tiny subcentimeter hypoattenuatinglesions in the right kidney too small to characterize, but likely benign.No renal calculi or hydroureteronephrosis. Extrarenal pelvisesbilaterally. The bladder is unremarkable. Status post hysterectomy. No suspicious adnexal lesions. Moderate size hiatal hernia. There is no evidence of bowel obstruction orinflammation. Enteroenteric anastomosis in the midline lowerabdomen/pelvis without complication. Moderate stool burden throughout thecolon. Colonic diverticulosis without CT evidence of acute diverticulitis. No free air, free fluid, or abscess. No abdominopelvic lymphadenopathy. Mild calcific atherosclerosis of the aortoiliac system. Soft tissue/musculoskeletal: Tiny fat containing ventral abdominal wall hernia, decreased in sizecompared to prior exam. No acute fracture or malalignment. Levoscoliotic curvature of the lumbarspine. Multilevel degenerative changes throughout the spine. No suspiciousosseous lesions. Impression: 1. No CT evidence of an acute process involving the abdomen or pelvis. 2. Incidental findings as detailed above. Please note that all CT scans at this facility use dose modulation,iterative reconstruction, and/or weight-based dosing when appropriate toreduce radiation dose to as low as reasonably achievable. Dictated by Blanco Atkins MD @ 05/09/2025 3:37:36 PM (Electronically Signed) us Marla Christianson MD CT Final Resul t * (ABNORMAL) CBC WITH AUTO DIFFERENTIAL (05/09/2025 1:37 PM CDT) WHITE BLOOD COUNT 6.1 4.5 - 11.0 thou/cu mm 05/09/2025 4:38 PM T [facility] RED BLOOD COUNT 4.03 4.00 - 5.20 mil/cu mm 05/09/2025 4:38 PM T [facility] HEMOGLOBIN 12.0 12.0 - 16.0 g/dL 05/09/2025 4:38 PM [facility] HEMATOCRIT 38.0 33.0 - 51.0 % 05/09/2025 4:38 PM [facility] MCV 94 80 - 100 fL 05/09/2025 4:38 PM [facility] MCH 29.8 26.0 - 34.0 pg 05/09/2025 4:38 PM [facility] MCHC 31.6(L) 32.0 - 36.0 g/dL 05/09/2025 4:38 PM [facility] RDW 13.3 11.5 - 15.5 % 05/09/2025 4:38 PM [facility] PLATELET COUNT 189 140 - 440 thou/cu mm 05/09/2025 4:38 PM [facility] MPV 8.7 6.5 - 11.0 fL 05/09/2025 4:38 PM [facility] % NEUT 42.3 % 05/09/2025 4:38 PM [facility] % LYMPH 46.9 % 05/09/2025 4:38 PM [facility] % MONO 9.0 % 05/09/2025 4:38 PM [facility] % EOS 1.6 % 05/09/2025 4:38 PM [facility] % BASO 0.2 % 05/09/2025 4:38 PM [facility] ABSOLUTE NEUTROPHILS 2.6 1.7 - 7.0 thou/cu mm 05/09/2025 4:38 PM [facility] ABSOLUTE LYMPHOCYTES 2.9 0.9 - 2.9 thou/cu mm 05/09/2025 4:38 PM [facility] ABSOLUTE MONOCYTES 0.6 <0.9 thou/cu mm 05/09/2025 4:38 PM [facility] ABSOLUTE EOSINOPHILS 0.1 <0.5 thou/cu mm 05/09/2025 4:38 PM [facility] ABSOLUTE BASOPHILS 0.0 <0.3 thou/cu mm 05/09/2025 4:38 PM [facility] Blood BLOOD SPECIMEN / Unknown [facility] Collect / Unknown 05/09/2025 1:37 PM CDT 05/09/2025 1:37 PM T us Marla Christianson MD HEMATOLOGY Final Resul t Performing Organization Address City/[facility]/ZIP Co de Phone Number [facility] [address] [place] [address] * STAT Lipase (05/09/2025 1:37 PM CDT) LIPASE 41.3 13.0 - 60.0 IU/L 05/09/2025 5:04 PM CDT [facility] Blood BLOOD SPECIMEN / Unknown [facility] / Unknown 05/09/2025 1:37 PM CDT 05/09/2025 1:37 PM CDT us Marla Christianson MD CHEMISTRY Final Resul t Performing Organization Address [facility] Co de Phone Number [facility] [address] [place] [address] * (ABNORMAL) STAT Comp Metabolic Panel CMP (05/09/2025 1:37 PM CDT) Pathologist [facility] SODIUM 137 136 - 145 mmol/L 05/09/2025 5:04 PM [facility] POTASSIUM 4.8 3.5 - 5.1 mmol/L 05/09/2025 5:04 PM [facility] CHLORIDE 104 98 - 107 mmol/L 05/09/2025 5:04 PM [facility] CO2,TOTAL 22 22 - 29 mmol/L 05/09/2025 5:04 PM [facility] ANION GAP 11 5 - 18 05/09/2025 5:04 PM [facility] GLUCOSE 96 70 - 99 mg/dL 05/09/2025 5:04 PM [facility] CALCIUM 9.6 8.8 - 10.4 mg/dL 05/09/2025 5:04 PM [facility] Comment: Reference ranges for this test were updated on 08/16/2024 to reflect our healthy population more accurately. Reference range changes are not retroactively applied to results, but previous results using the same methodology can be interpreted in the context of the new reference range. BUN 26(H) 8 - 23 mg/dL 05/09/2025 5:04 PM [facility] CREATININE 1.02(H) 0.50 - 0.90 mg/dL 05/09/2025 5:04 PM [facility] BUN/CREAT RATIO 25(H) 10 - 20 5:04 PM [facility] eGFR 55(L) >90 mL/min/1. 73m2 05/09/2025 5:04 PM [facility] Comment:As of 2021, eG FR is calculated by the CKD-EPI creatinine equation without race adjustment. eGFR can be influenced by muscle mass, exercise, and diet. The reported eGFR is an estimation only and is only applicable if the renal function is stable. ALBUMIN 4.4 4.0 - 4.9 g/dL 05/09/2025 5:04 PM [facility] PROTEIN,TOTAL 7.8 6.0 - 8.0 g/dL 05/09/2025 5:04 PM [facility] BILIRUBIN,TOTAL 0.3 0.0 - 1.2 mg/dL 05/09/2025 5:04 PM [facility] ALK PHOSPHATASE 44 35 - 104 IU/L 05/09/2025 5:04 PM [facility] ALT (SGPT) 15 10 - 35 IU/L 05/09/2025 5:04 PM [facility] AST (SGOT) 30 10 - 35 IU/L 05/09/2025 5:04 PM [facility] Blood BLOOD SPECIMEN / Unknown [facility] / Unknown 05/09/2025 1:37 PM CDT 05/09/2025 1:37 PM CDT us Marla Christianson MD CHEMISTRY Final Resul t [facility] [address] [place] [address] * (ABNORMAL) URINE CULTURE (04/20/2025 8:48 AM CDT) CULTURE RESULT(A) 04/22/2025 1:13 PM CDT [facility] CULTURE >100,000 CFU/mL Escherichia coli 04/22/2025 1:13 PM CDT [facility] Comment:ESBL-positive (Exten ded-spectrum beta-lactamase); multidrug-resistant organism. [...] Marla Christianson MD MICROBIOLOGY Final Resul t [facility] [address] [place] [address], * SCAN-PATHOLOGY REPORT (03/30/2025 12:00 AM CDT) [...] to assess therapeutic efficacy. Crystal Baltazar PA-C [facility] 03/01/2024 Narrative 03/01/2024 1:47 PM CDT For Patients: Results are automatically released to your [facility] [employer] account once available, in compliance with federal regulations. This means that you may see your results before your provider has had a chance to review them. Please allow 2-3 business days for your provider to comment on the results. XR DXA Bone Mineral Density (BMD) EXAM LOCATION: [address] [address] PATIENT NAME: Claudia Rhodes DATE OF : [...] two scanners are made by the same tool lapper hand. 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
[2025-05-19 12:14] VITALS: BP 167/79; PULSE 56; RESP 16; TEMP 37.1; O2SAT 100; BMI 30.7
[2025-05-19 12:55] LABS: Appearance Urine Cloudy (Clear)
--- NOTE | 2025-05-19 13:23 | ED.GENADULT ---
HPI - General Adult General Chief complaint: Unspecified Complaint, Adult Stated complaint: possible UTI Time Seen by Provider: 05/19/25 12:12 History of Present Illness HPI narrative: This 79-year-old female comes in reporting dysuria symptoms. She states that she has had ongoing symptoms are recurrent symptoms of dysuria and was treated a couple weeks ago. She states that she had been on Keflex daily for a couple years. She has not been on any antibiotic for about a week now. She arrives here with normal vital signs. She does not report any fevers. Related Data Home Medications ?Medication ?Instructions ?Recorded ?Confirmed acetaminophen 650 mg 650 mg PO Q8H PRN 04/17/22 05/19/25 tablet,extended release atorvastatin 10 mg tablet 10 mg PO .Bedtime 04/17/22 05/19/25 cholestyramine-aspartame 4 gram See Rx Instructions PO DAILY 04/17/22 05/19/25 oral powder for susp in a packet clopidogrel 75 mg tablet 75 mg PO DAILY 04/17/22 05/19/25 ergocalciferol (vitamin D2) 10 mcg 2,000 unit PO DAILY 04/17/22 05/19/25 (400 unit) tablet lisinopril 20 1 tab PO DAILY 04/17/22 05/19/25 mg-hydrochlorothiazide 25 mg tablet multivitamin (Multiple Vitamins 1 tab PO QDAY 04/17/22 05/19/25 tablet) omeprazole 20 mg capsule,delayed 20 mg PO DAILY 04/17/22 05/19/25 release sotalol 80 mg tablet 40 mg PO BID 04/17/22 05/19/25 tramadol 50 mg tablet 50 mg PO Q6-8H PRN 01/21/24 05/19/25 potassium chloride 10 mEq 10 meq PO DAILY 07/18/24 05/19/25 tablet,extended release Previous Rx's ?Medication ?Instructions ?Recorded cefprozil 500 mg tablet 500 mg PO BID #14 tabs 05/19/25 Allergies Allergy/AdvReac Type Severity Reaction Status Date / Time codeine AdvReac Severe Nausea, Verified 05/19/25 12:22 vomiting, dizziness hydrocodone AdvReac Severe Nausea, Verified 05/19/25 12:22 vomiting, dizziness meperidine AdvReac Severe Nausea, Verified 05/19/25 12:22 vomiting, dizziness morphine AdvReac Severe Nausea, Verified 05/19/25 12:22 vomiting, dizzy NSAIDS (Non-Steroidal AdvReac Severe Nausea, Verified 05/19/25 12:22 Anti-Inflamma vomiting, dizziness ciprofloxacin AdvReac Mild Palpitation Verified 05/19/25 12:22 s oxycodone AdvReac Mild Nausea Verified 05/19/25 12:22 Review of Systems Status of ROS: Reports: 10 or more systems reviewed and unremarkable except as noted in History and below Narrative: Constitutional: No fevers, no weight gain or loss. Eyes: No discharge. No vision changes. HENT: No congestion, no sore throat, no ear pain. Cardiovascular: No chest pain, no palpitations. Respiratory: No shortness of breath, no wheezes, no cough. Gastrointestinal: No abdominal pain, no vomiting, no diarrhea. Genitourinary: Burning sensation when voiding urine. Musculoskeletal: Normal range of motion. Skin: No rashes, no pruritis. Neurological: No dizziness, weakness, sensory change, speech change. Endo/Heme/Allergies: No bruising or bleeding. No polydipsia. Pysch: no suicidality, no anxiety, no insomnia. All other systems reviewed and are negative. [facility] Medical History Hypokalemia ?E87.6 - Hypokalemia (ICD-10) Lumbar degenerative disc disease ?M51.36 - Other intervertebral disc degeneration, lumbar region (ICD-10) 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 ?M18.0 - Bilateral primary osteoarthritis of first carpometacarpal joints (ICD-10) Urinary tract infection ?N39.0 - Urinary tract infection, site not specified (ICD-10) Squamous cell carcinoma in situ (SCCIS) ?D09.9 - Carcinoma in situ, unspecified (ICD-10) Recurrent urinary tract infection ?N39.0 - Urinary tract infection, site not specified (ICD-10) Premature atrial contraction ?I49.1 - Atrial premature depolarization (ICD-10) Pain of right lower extremity ?M79.604 - Pain in right leg (ICD-10) Nausea ?R11.0 - Nausea (ICD-10) History of supraventricular tachycardia ?Z86.79 - Personal history of other diseases of the circulatory system (ICD-10) Hiatal hernia ?K44.9 - Diaphragmatic hernia without obstruction or gangrene (ICD-10) Surgical History Osteoarthritis of carpometacarpal (CMC) joint of right thumb (09/21/19) ?M18.11 - Unilateral primary osteoarthritis of first carpometacarpal joint, right hand (ICD-10) History of total knee replacement (~2009) ?Z96.659 - Presence of unspecified artificial knee joint (ICD-10) History of total hysterectomy with bilateral salpingo-oophorectomy (BSO) (~1991) ?Z90.710 - Acquired absence of both cervix and uterus (ICD-10) ?Z90.722 - Acquired absence of ovaries, bilateral (ICD-10) ?Z90.79 - Acquired absence of other genital organ(s) (ICD-10) History of resection of small bowel (~1991) ?Z90.49 - Acquired absence of other specified parts of digestive tract (ICD-10) History of cholecystectomy (~2002) ?Z90.49 - Acquired absence of other specified parts of digestive tract (ICD-10) History of carpal tunnel release of both wrists ?Z98.890 - Other specified postprocedural states (ICD-10) History of bilateral cataract extraction (~2007) ?Z98.41 - Cataract extraction status, right eye (ICD-10) ?Z98.42 - Cataract extraction status, left eye (ICD-10) Family History Father FH: colonic polyps Leukemia Brother FH: colonic polyps Mother Coronary artery disease Hypercholesteremia High blood pressure Sister Breast cancer Social History Smoking Status: Never smoker Do you use any of these nicotine containing products: None Second hand tobacco smoke exposure: No How often do you have a drink containing alcohol: never AUDIT-C Alcohol total score: 0 Non-prescribed substance use: denies use service: No Exam Narrative: Exam Narrative: Constitutional: Well-developed, well-nourished, no acute distress. HEENT: Normocephalic, atraumatic. Neck: Normal range of motion. Nontender. Supple. Heart: Intact distal pulses. Lungs: No chest discomfort. No wheezes, rhonchi, or rales. Abdomen: Nontender. Back: Normal range of motion. Extremities: Normal range of motion. No injury. Skin: Intact. No rash. Warm. No erythema or pallor. Neurologic: No altered sensation. No weakness. Alert and oriented. Psychiatric: No suicidality. No anxiety or depression. No insomnia. Nursing notes and vitals signs are reviewed. Const: Vital Signs, click to edit/add: Vital Signs - 24 hr 05/19/25 12:14 Temperature 98.7 F Pulse Rate [Right Pulse Oximeter] 56 L Respiratory Rate 16 Blood Pressure [Ri ght Upper Arm] 167/79 H Pulse Oximetry 100 Oxygen Delivery Me thod Room Air Course Vital Signs Vital signs: Initial Vital Signs Temperature 98.7 F 05/19/25 12:14 Temperature Source Temporal Artery Scan 05/19/25 12:14 Pulse Rate 56 L 05/19/25 12:14 Pulse Rhythm Regular 05/19/25 12:14 Pulse Strength 3+ Normal 05/19/25 12:14 Respiratory Rate 16 05/19/25 12:14 Blood Pressure 167/79 H 05/19/25 12:14 Blood Pressure Mean 108 H 05/19/25 12:14 Blood Pressure Position Sitting 05/19/25 12:14 Pulse Oximetry 100 05/19/25 12:14 Oxygen Delivery Method Room Air 05/19/25 12:14 Vital Signs Temperature 98.7 F 05/19/25 12:14 Pulse Rate 56 L 05/19/25 12:14 Respiratory Rate 16 05/19/25 12:14 Blood Pressure 167/79 H 05/19/25 12:14 Pulse Oximetry 100 05/19/25 12:14 Oxygen Delivery Method Room Air 05/19/25 12:14 Temperature 98.7 F 05/19/25 12:14 Pulse Rate 56 L 05/19/25 12:14 Respiratory Rate 16 05/19/25 12:14 Blood Pressure 167/79 H 05/19/25 12:14 Pulse Oximetry 100 05/19/25 12:14 Oxygen Delivery Method Room Air 05/19/25 12:14 Medical Decision Making MDM Narrative Medical decision making narrative: I did review this patient's previous records and found that urinalyses in the past 3 tests did not grow sufficient colonies of bacteria to indicate a true infection. Urinalysis today however shows greater than 100 white blood cells per high-powered field. The patient did receive an intramuscular injection of Rocephin 1 g. I also provided a prescription for Cefzil. She does have a follow-up appointment with a urologist next week. Lab Data Labs: Lab Results 05/19/25 Range/Units 12:32 Urine Color Yellow (Yellow) Urine Appearance Cloudy A (Clear) Urine pH 5.5 (5.0-8.5) Ur Specific [place] 1.010 (1.000-1.030) Urine Protein Negative (Negative) Urine Glucose (UA) Negative (Negative) Urine Ketones Negative (Negative) Urine Blood Trace-intact A (Negative) Urine Nitrite Negative (Negative) Urine Bilirubin Negative (Negative) Urine Urobilinogen 0.2 (0.2-1.0) Ur Leukocyte Esterase 1+ A (Negative) Urine RBC 2-5 A (0-2) Urine WBC >100 A (0-5) Ur Squamous Epith Cells Few (None-Few) Urine Bacteria Many A (None) Discharge Plan Discharge Clinical Impression: Urinary tract infection Patient Disposition: Home, Self-Care Condition: Stable Additional Instructions: Take medication as prescribed. Follow-up with urology clinic as scheduled or return if worsening. Prescriptions: New cefprozil 500 mg tablet 500 mg PO BID Qty: 14 0RF No Action clopidogrel 75 mg tablet 75 mg PO DAILY ergocalciferol (vitamin D2) 10 mcg (400 unit) tablet 2,000 unit PO DAILY sotalol 80 mg tablet 40 mg PO BID multivitamin [Multiple Vitamins] Tablet 1 tab PO QDAY acetaminophen 650 mg tablet extended release 650 mg PO Q8H PRN cholestyramine-aspartame 4 gram powder in packet See Rx Instructions PO DAILY Rx Instructions: 4 Grams PO daily; lisinopril-hydrochlorothiazide 20-25 mg tablet 1 tab PO DAILY omeprazole 20 mg capsule,delayed release(DR/EC) 20 mg PO DAILY atorvastatin 10 mg tablet 10 mg PO .Bedtime tramadol 50 mg tablet 50 mg PO Q6-8H PRN potassium chloride 10 mEq tablet extended release 10 meq PO DAILY Follow Up/Referrals: Marla Christianson MD [Primary Care Provider, Family Practice] Stand Al[facility]
[2025-05-19] MEDS: cefTRIAXone 1 GM VIAL IM (13:37)
[2025-05-19] MEDS: LIDOCAINE 1% 5 ml (pf) 5 ML VIAL 2.1 ML IM (13:37)
== END 2025-05-19 13:44 | disposition home or self-care (01) ==
PROVIDERS: Emergency Provider Emergency Medicine Emergency Medical Services; PCP Family Medicine
DX: N39.0 Urinary tract infection, site not specified (principal)
CPT/HCPCS: 81001; 87086; 96372; 99283; 99284; J0696